=== PATIENT | male | born 1970 | race Caucasian/White ===

== ENCOUNTER 2023-01-18 21:23 | Emergency (ER) | payer MEDICARE, SELFPAY ==
[2023-01-18] VITALS (22 sets, daily range): BP systolic 126–161; BP diastolic 67–109; PULSE 55–119; RESP 5–25; TEMP 37.3; O2SAT 88–100
--- NOTE | 2023-01-18 21:45 | DI.RAD_ITS ---
Exam(s) XR PORTABLE CHEST AP EXAM: XR PORTABLE CHEST AP CLINICAL HISTORY: ascites TECHNIQUE: 2D digital imaging was performed of the chest. One image was obtained. An AP view was ob tained. COMPARISON: No exams were available for comparison FINDINGS: MEDIASTINUM: Normal. HEART: Normal. PULMONARY VASCULATURE: Normal. LUNGS: No focal consolidating infiltrates are present. PLEURAL SPACE: No pleural effusion or pneumothorax. BONE:Within normal limits for the patient's age. OTHER FINDINGS:Normal. IMPRESSION: No focal consolidating infiltrates. Follow-up as clinically appropriate. This may include a repeat chest x-ray or CT scan as symptoms dictate. DATA REPOSITORY: RADIATION DOSE DELIVERED:
--- NOTE | 2023-01-18 21:48 | W.ED.GENAD ---
Discharge Plan Disposition Patient Disposition: Home Discharge Details Chief Complaint: GenMedical Clinical Impression: Ascites Primary Care Provider: Unknown,Unknown ED Provider: Dave Cali Home Meds and New Rx's Prescriptions: No Action midodrine 5 mg tablet 10 mg PO TID hydroxyzine pamoate 50 mg capsule 50 mg PO QID omeprazole 40 mg capsule,delayed release(DR/EC) 40 mg PO DAILY nadolol 20 mg Tablet 20 mg PO HS amiloride 5 mg tablet 10 mg PO DAILY bumetanide 0.5 mg Tablet 0.5 mg PO DAILY niacinamide 100 mg Tablet 150 mg PO DAILY escitalopram oxalate 10 mg Tablet 10 mg PO DAILY escitalopram oxalate 20 mg Tablet 20 mg PO DAILY acamprosate 333 mg tablet,delayed release (DR/EC) 666 mg PO TID lactulose [Constulose] 10 gram/15 mL Solution 15 ml PO TID Xifaxan 550 mg Tablet 550 mg PO BID Xifaxan 550 mg tablet 550 mg PO BID Discharge Instructions Instructions: Ascites (ED) Additional Instructions: Please follow-up with general surgery as scheduled for next week. Please return to the emergency department for any worsening symptoms. Medical Decision Making 52-year-old male history of alcohol abuse, liver cirrhosis, recently moved from [place] where he was receiving frequent paracentesis, seeking treatment for ascites, patient smells of alcohol appears mildly intoxicated however is alert oriented interactive communicative, no acute distress abdomen distended nontense with fluid wave nonperitoneal, afebrile nontoxic. Bedside ultrasound showing moderate ascites however bowel wall very close to abdominal wall, at this time patient is not in any respiratory distress is maintaining his hemodynamics and does not have any signs of peritonitis therefore an urgent/emergent paracentesis is not indicated. We will obtain basic labs PT/INR, will provide light fluids Zofran and famotidine for symptoms of gastritis. Low suspicion for spontaneous bacterial peritonitis or impending respiratory compromise from ascites. Pulse ox 93 to 94% on room air. Will obtain chest x-ray to assess for component of pleural effusion as well. Likely home with close follow-up with general surgery and [facility] human services for recovery resources 22: 50 resting comfortably no acute distress. Saturating 90 to 92% on room air no respiratory distress, patient is a daily smoker approximately 1 pack/day. Patient will be given a referral for evaluation by general surgery for outpatient paracentesis given recurrent chronic ascites. Given home care instructions and return precautions HPI General Date/Time Provider Initiated Documentation: 01/18/23 21:44. HPI Narrative: 52-year-old male history of alcohol abuse, cirrhosis presents after recently moving from [place] seeking treatment for ascites, was receiving paracentesis every couple of weeks has been several weeks since last paracentesis. Related Data Home Medications Medication Instructions Recorded Confirmed acamprosate 333 mg tablet,delayed 666 mg PO TID 01/18/23 01/18/23 release amiloride 5 mg tablet 10 mg PO DAILY 01/18/23 01/18/23 bumetanide 0.5 mg tablet 0.5 mg PO DAILY 01/18/23 01/18/23 escitalopram oxalate 10 mg tablet 10 mg PO DAILY 01/18/23 01/18/23 escitalopram oxalate 20 mg tablet 20 mg PO DAILY 01/18/23 01/18/23 hydroxyzine pamoate 50 mg capsule 50 mg PO QID 01/18/23 01/18/23 lactulose 10 gram/15 mL oral 15 ml PO TID 01/18/23 01/18/23 solution (Constulose) midodrine 5 mg tablet 10 mg PO TID 01/18/23 01/18/23 nadolol 20 mg tablet 20 mg PO HS 01/18/23 01/18/23 niacinamide 100 mg tablet 150 mg PO DAILY 01/18/23 01/18/23 omeprazole 40 mg capsule,delayed 40 mg PO DAILY 01/18/23 01/18/23 release rifaximin 550 mg tablet (Xifaxan) 550 mg PO BID 01/18/23 01/18/23 rifaximin 550 mg tablet (Xifaxan) 550 mg PO BID 01/18/23 01/18/23 Allergies Allergy/AdvReac Type Severity Reaction Status Date / Time No Known Allergies Allergy Unverified 01/18/23 21:43 General Stated Complaint: GenMedical YOLANDA: 3 Review of Systems Narrative: Review of Systems Constitutional: negative Eyes: negative ENT: negative Cardiovascular: negative Respiratory: negative Gastrointestinal: Abdominal distention : negative Musculoskeletal: negative Skin: negative Neurologic: negative Psych: negative PFSH All Active Problems (Updated 01/18/23 @ 22:51 by Dave Cali MD) Ascites (Acute) Social History Smoking/Tobacco Use Status: Current every day Tobacco Type: cigarettes Smoking risk assessment performed?: Yes Alcohol Intake: current Alcohol Intake frequency: 3 or more drinks per day Alcohol type: hard liquor Drug use: Occasionally Substance use type: marijuana Housing: other Do you feel safe at home: No Exam Narrative Exam Narrative: Physical Examination General: alert, awake, cooperative, resting comfortably, no acute distress; EtOH on breath HEENT: normocephalic, atraumatic; PERRL, EOM intact, conjunctiva normal; no nasal discharge; moist mucous membranes, oral and pharyngeal mucosa normal, tolerating secretions Neck: supple, trachea midline; full ROM Chest: normal to inspection Respiratory: normal respiratory effort, speaking in full sentences, clear to auscultation, no wheezing, rales or rhonchi Cardiac: regular rate, regular rhythm, S1S2 intact, no murmurs rubs or gallops GI: abdomen soft, distended abdomen with fluid wave nonperitoneal Skin: no lesions, rashes or trauma appreciated Neuro: AAOx3, normal speech, moving all extremities; appears intoxicated Psych: Appropriate mood and affect Course Vital Signs Vital signs: Vital Signs Temperature 37.3 C 01/18/23 21:25 Pulse 115 H 01/18/23 21:25 Respiratory Rate 24 01/18/23 21:25 Blood Pressure 135/102 H 01/18/23 21:25 Pulse Oximetry 96 01/18/23 21:25 Temperature 37.3 C 01/18/23 21:25 Pulse 115 H 01/18/23 21:25 Respiratory Rate 24 01/18/23 21:25 Respiratory Effort Short of Breath 01/18/23 21:30 Respiratory Depth Normal 01/18/23 21:30 Respiratory Pattern Normal 01/18/23 21:30 Blood Pressure 135/102 H 01/18/23 21:25 Pulse Oximetry 96 01/18/23 21:25 Oxygen Delivery Method Room Air 01/18/23 21:25 Oxygen Flow Rate 0 01/18/23 21:25 Pain Level 7 01/18/23 21:25 PAWSS Have you Been Recently Intoxicated or Drunk Within the Last 30 days?: Yes Have you Ever Experienced Previous Episodes of Alcohol Withdrawal?: No Have you ever Experienced Withdrawal Seizures?: No Have you ever Experienced Delirium Tremens(DT)s?: No Have you ever undergone Alcohol Rehabilitation Treatment (i.e, inpt ot outpatient treatment programs)?: Yes Have you ever Experienced Blackouts?: Yes Have you ever Combined Alcohol with other Downers within the last 90 days?: No Have you ever Combined Alcohol with any other Substance of Abuse during the last 90 days?: Yes Positive Blood Alcohol level on Presentation? [PCS.BAL]: No Evidence of Increased Autonomic Activity (i.e. HR>120, tremor, sweating, agitation, nausea)?: No Result: 5
[2023-01-18 21:57] LABS: Abs Immature Grans 0.01 10^3/uL (0.0-0.06); Absolute Basophil Count 0.08 10^3/uL (0.0-0.2); Absolute Eosinophil Count 0.06 10^3/uL (0.0-0.7); Absolute Lymphocyte Count 1.63 10^3/uL (1.2-3.4); Absolute Monocyte Count 0.64 10^3/uL (0.1-0.8); Absolute Neutrophil Count 4.62 10^3/uL (1.2-6.7); Basophils % 1.1; Eosinophils % 0.9; HCT 42.2 % (40.0-50.0); HGB 13.2 g/dL (13.5-17.5); Immature Grans % 0.1; Lymphocytes % 23.2; MCH 26.9 pg (27.0-33.0); MCHC 31.3 % (32.0-36.0); MCV 86 fL (80-95); MPV 10.1 fL (8.0-11.0); Monocytes % 9.1; Neutrophils % 65.6; Platelet Count 144 10^3/uL (130-400); RBC 4.91 10^6/uL (4.36-5.78); RDW 17.9 % (11.8-14.1); RDW-SD 55.8 fL; WBC 7.04 10^3/uL (4.4-10.8)
[2023-01-18 22:11] LABS: INR 1.3 (0.9-1.1); PTT Activated 26.7 sec (21.5-31.9); Prothrombin Time 13.3 sec (9.3-11.0)
[2023-01-18] MEDS: Normal Saline 500 ML 1000 ML IV (22:11)
[2023-01-18] MEDS: Famotidine 20 MG/2 ML VIAL IVP (22:11)
[2023-01-18] MEDS: Ondansetron 4 MG/2 ML VIAL IVP (22:11)
[2023-01-18 22:12] LABS: ALT 73 U/L (16-63); AST 219 U/L (15-37); Albumin 3.4 g/dL (3.4-5.0); Alkaline Phosphatase 178 U/L (46-116); Anion Gap 13.5 mmol/L (3-11); BUN 14 mg/dL (7-18); Bilirubin, Total 1.5 mg/dL (0.2-1.0); CO2 26.5 mmol/L (21.0-32.0); CREATININE 1.4 mg/dL (0.70-1.30); Calcium 8.8 mg/dL (8.5-10.1); Chloride 99 mmol/L (98-107); Glucose 112 mg/dL (74-106); Potassium 3.8 mmol/L (3.5-5.1); Sodium 139 mmol/L (136-145); Total Protein 9.1 g/dL (6.4-8.2)
[2023-01-18 22:15] LABS: ETHANOL BLOOD 322.8 mg/dL (<10)
--- NOTE | 2023-01-18 22:43 | DI.VRAD_ITS ---
PROCEDURE INFORMATION: Exam: XR Chest Exam date and time: 01/18/2023 10:17 PM Age: 52 years old Clinical indication: Other: Ascites TECHNIQUE: Imaging protocol: Radiologic exam of the chest. Views: 1 view. COMPARISON: No relevant prior studies available. FINDINGS: Lungs: There are mild diffuse interstitial infiltrates present. This may represent cardiogenic versus noncardiogenic edema. An acute inflammatory process and/or infectious process/pneumonia are not excluded. There is no evidence of focal pulmonary consolidation. The pulmonary vasculature is normal. Pleural spaces: There is no evidence of pneumothorax. There are no pleural effusions present. Heart/Mediastinum: The cardiac silhouette is within normal limits. The mediastinum is normal. Bones/joints: The spine, sternum, ribs, and pectoral girdles show no evidence of acute abnormality Other findings: There are no soft tissue masses or calcifications. IMPRESSION: There are mild diffuse interstitial infiltrates present. This may represent cardiogenic versus noncardiogenic edema. An acute inflammatory process and/or infectious process/pneumonia are not excluded. Dictated and Authenticated by: Ronan Coleman MD. Ordering:JAKE Acosta MD
--- NOTE | 2023-01-18 23:02 | NUR.NOTE ---
Referral faxed to [facility] for appt week of 01/21/23 for f/u of ascites and possible paracentesis.Nursing Note:
== END 2023-01-18 23:09 | disposition home or self-care (01) ==
LOC: ER 22:52
PROVIDERS: Emergency Provider Emergency Medicine
DX: R18.8 Other ascites (principal); R06.02 Shortness of breath; M54.9 Dorsalgia, unspecified; F17.210 Nicotine dependence, cigarettes, uncomplicated; F10.10 Alcohol abuse, uncomplicated
CPT/HCPCS: 80053; 96361; 96374; 96375; 99284; 71045; 80320; 85025; 85610; 85730; J2405

== ENCOUNTER 2023-01-25 10:48 | Day surgery (SDC) | payer MEDICARE, SELFPAY ==
--- NOTE | 2023-01-24 21:08 | PDOC.DSDIS_ITS ---
Date of service: 01/25/23 Time of Service: 14:05 Discharge Plan Disposition Patient Disposition: Home Condition: Good Discharge Details Reason For Visit: Paracentesis Attending Provider: Rick Latham Primary Care Provider: None,None Home Meds and New Rx's Prescriptions: Continued midodrine 5 mg tablet 10 mg PO TID hydroxyzine pamoate 50 mg capsule 50 mg PO BID omeprazole 40 mg capsule,delayed release(DR/EC) 40 mg PO DAILY nadolol 20 mg Tablet 20 mg PO HS amiloride 5 mg tablet 10 mg PO DAILY bumetanide 0.5 mg Tablet 0.5 mg PO DAILY niacinamide 100 mg Tablet 150 mg PO DAILY escitalopram oxalate 10 mg Tablet 10 mg PO DAILY escitalopram oxalate 20 mg Tablet 20 mg PO DAILY acamprosate 333 mg tablet,delayed release (DR/EC) 666 mg PO TID lactulose [Constulose] 10 gram/15 mL Solution 15 ml PO TID Xifaxan 550 mg tablet 550 mg PO BID Discharge Instructions Instructions: Ascites (GEN), Paracentesis (GEN) Additional Instructions: Go, it was great meeting you today, and I hope you get some relief with this paracentesis. Next available time I have on the schedule is February 08. We reserved a spot for you on that date. The exact time will be determined by the day surgery team the day before. Again, if you find that you reaccumulate too much before that, please let me know, and we can do it as an emergency. I also placed a consultation for the [facility] hepatology team. They should contact you in the next few days. If you have not heard anything by the end of next week, please let me know. Activity:: Activity as Tolerated Remove Dressings/Wound Care:: 24 hours Diet:: As Tolerated Discharge Orders Discharge Orders: Discharge Order (Routine); Ordered 01/24/23 Ordered By: Rick Latham DS: Diagnosis Discharge Diagnosis (1) Ascites: Status: Acute
--- NOTE | 2023-01-24 21:10 | W.PROCNOTE ---
Date of service: 01/25/23 Time of Service: 14:07 Procedure Note Date of procedure: 01/25/23 Procedure: paracentesis Surgeon/Proceduralist/Physician: Rick Latham Procedure Diagnosis: Tense ascites Procedure Indications: Pulse 52-year-old male with alcoholic cirrhosis and ascites. He requires intermittent paracentesis to alleviate dyspnea and coughing. Procedure Description: I started by performing a limited ultrasound of the abdomen to identify appropriate site for paracentesis. Next, I selected the left lower quadrant as the ideal site for paracentesis. I then prepped and draped the abdomen. Next, using ultrasound guidance, I anesthetized the skin with 1% lidocaine with epinephrine. I used the ultrasound to guide the needle down to the peritoneal level which was also anesthetized. I then made a small incision in the skin with a 11 blade scalpel. Next, I advanced the 5 Ukrainian paracentesis needle and catheter through the incision and into the peritoneal cavity under the direct vision of the ultrasound. I aspirated straw-colored ascites. Next, I gently advance the catheter and remove the needle. I affixed drainage tubing, and began draining the ascites with the assistance of Vacutainer's. As the flow decreased, I assisted the patient to the left lateral decubitus position to improve drainage. I used a hand pump to maximize drainage. Once the ascites stopped flowing, I removed the catheter and used a Band-Aid to dress the wound. In total we drained 4300 mL of ascites.
[2023-01-25 11:32] VITALS: BP 152/99; PULSE 20; RESP 20; TEMP 36.3; O2SAT 98
[2023-01-25 14:00] VITALS: BP 149/95; PULSE 90; RESP 18; TEMP 36.3; O2SAT 96
[2023-01-25] MEDS: ALBUMIN HUMAN 25 GM/100 ML BTL IVPB (14:26)
[2023-01-25] MEDS: Normal Saline Flush 10 ML SYR IVP (14:27)
[2023-01-25] MEDS: Normal Saline Flush 10 ML SYR (14:27)
[2023-01-25 15:00] VITALS: BP 137/82; PULSE 90; RESP 18; TEMP 36.6; O2SAT 95
== END 2023-01-25 15:22 | disposition home or self-care (01) ==
PROVIDERS: Visit Provider Surgery
PROC: 0W9G3ZZ Drainage of Peritoneal Cavity, Percutaneous Approach (ICD-10-PCS; CPT 49082; principal; 2023-01-25 12:30)
DX: K70.31 Alcoholic cirrhosis of liver with ascites (principal)
CPT/HCPCS: 49083

== ENCOUNTER 2023-02-08 06:27 | Day surgery (SDC) | payer MEDICARE, SELFPAY ==
[2023-02-08 06:25] VITALS: BP 137/97; PULSE 98; RESP 18; TEMP 36.4; O2SAT 97
--- NOTE | 2023-02-08 06:34 | OPPNE_ITS ---
Date of service: 02/08/23 Time of Service: 08:06 Procedure Note Date of procedure: 02/08/23 Procedure: Therapeutic paracentesis Surgeon/Proceduralist/Physician: Rick Latham Procedure Diagnosis: Tense ascites Procedure Indications: Go is a 52-year-old male with alcoholic cirrhosis and chronic tense ascites. He requires intermittent paracentesis to help with respiratory discomfort and pain. Procedure Description: I started by performing a limited ultrasound of the abdomen to identify appropriate site for paracentesis. Next, I selected the left lower quadrant as the ideal site for paracentesis. I then prepped and draped the abdomen. Next, using ultrasound guidance, I anesthetized the skin with 1% lidocaine with epinep hrine. I used the ultrasound to guide the needle down to the peritoneal level which was also anesthetized. I then made a small incision in the skin with a 11 blade scalpel. Next, I advanced the 5 Macedonian paracentesis needle and catheter through the incision and into the peritoneal cavity under the direct vision of the ultrasound. I aspirated straw-colored ascites. Next, I gently advance the catheter and removed the needle. I affixed drainage tubing, and began draining the ascites with the assistance of Vacutainer's. I drained 6400 ml of ascites. As the flow decreased, I assisted the patient to the left lateral decubitus position to improve drainage. A large Band-Aid was used to dress the wound.
--- NOTE | 2023-02-08 06:34 | W.PM.DSUDISC ---
Date of service: 02/08/23 Time of Service: 07:56 Discharge Plan Disposition Patient Disposition: Home Condition: Good Discharge Details Reason For Visit: Therapeutic paracentesis Attending Provider: Rick Latham Home Meds and New Rx's Prescriptions: Continued midodrine 5 mg tablet 10 mg PO TID hydroxyzine pamoate 50 mg capsule 50 mg PO BID omeprazole 40 mg capsule,delayed release(DR/EC) 40 mg PO DAILY nadolol 20 mg Tablet 20 mg PO HS amiloride 5 mg tablet 10 mg PO DAILY bumetanide 0.5 mg Tablet 0.5 mg PO DAILY niacinamide 100 mg Tablet 150 mg PO DAILY escitalopram oxalate 10 mg Tablet 10 mg PO DAILY escitalopram oxalate 20 mg Tablet 20 mg PO DAILY acamprosate 333 mg tablet,delayed release (DR/EC) 666 mg PO TID lactulose [Constulose] 10 gram/15 mL Solution 15 ml PO TID Xifaxan 550 mg tablet 550 mg PO BID Discharge Instructions Additional Instructions: Go, it was great seeing you again today. I hope the paracentesis helps you feel a little better. Just as a reminder, we drained 6400 mL today. We will give you a dose of albumin before you leave. I would say at this rate, scheduling another paracentesis for about 2 weeks is probably the best option. If you need anything else in the meantime, please do not hesitate to call. Activity:: Activity as Tolerated Diet:: As Tolerated Discharge Orders Discharge Orders: Discharge Order (Routine); Ordered 02/08/23 Ordered By: Rick Latham DS: Diagnosis Discharge Diagnosis (1) Ascites: Status: Acute
[2023-02-08 08:00] VITALS: BP 130/78; PULSE 87; RESP 16; TEMP 36.7; O2SAT 95
[2023-02-08] MEDS: ALBUMIN HUMAN 25 GM/100 ML BTL IVPB (08:20)
--- NOTE | 2023-02-08 10:52 | CMPROGNOTE_ITS ---
Date of service: 02/08/23 Time of Service: 09:30 Care Management Progress Note Progress Note Text Progress Note Text: CM contacted by Day Surgery staff. Patient had made concerning comments suggesting he may have some suicidal ideation. CM contacted [facility] and Go was screened by crisis screener Maru Lara. He was discharged home on a safety plan and will follow up with [facility] next week.
--- NOTE | 2023-02-08 18:58 | PDOC.MHCN_ITS ---
Date of service: 02/08/23 Time of Service: 18:58 PHQ-9 Over the last 2 weeks, how often have you been bothered by any of the following problems? 1. Little interest or pleasure in doing things: several days 2. Feeling down, depressed, or hopeless: several days 3. Trouble falling or staying asleep, or sleeping too much: not at all 4. Feeling tired or having little energy: nearly every day 5. Poor appetite or overeating: more than half the days 6. Feeling bad about yourself - or that you are a failure or have let yourself and your family down: nearly every day 7. Trouble concentrating on things, such as reading the newspaper or watching television: several days 8. Moving or speaking so slowly that other people could have noticed? - Or the opposite - being so fidgety or restless that you have been moving around a lot more than usual: several days 9. Thoughts that you would be better off or of hurting yourself in some way: several days Total score: 13 If you checked off any problems, how difficult have these problems made it for you to do your work, take care of things at home, or get along with other people?: not difficult at all Source: Developed by Drs. Ronald Mitchell, Marine Ramos, John Lainez and colleagues, with an educational franklyn from [facility]. Suicide Severity Rate CSSRS Have you wished you were or wished you could go to sleep and not wake up?: Yes Have you actually had any thoughts of killing yourself?: No CSSRS3 Have you ever done anything, started to do anything or prepared to do anything to end your life?: No Screening Score Total Score: 2 Screening: Positive Mental Health Emergency Note Release HS release signed:: Yes Reason for Visit [facility] [employer] Manager, Felisa called at the request of Day Surgery for an assessment of the client after he made some suicidal comments coming out of his day surgery. This assessment was completed face to face with the client in his recovery room. In the last 2 weeks has the pt presented for ES prior to today?: No Client Information Client is: New Well Housed: Yes Non Suicidal Self Injury Current: No History: No Safety Risk/Harm to Self or Others Current Ideation to Harm Self or Others: No Risk: Does risk to harm exist?: No Risk: Low Risk Duty to warn indicated: No Asssessment/Mental Status Appearance: Disheveled Attitude: Cooperative and Friendly Behavior: Unremarkable Speech: Normal Affect: Normal Mood: Depressed Thought process: Goal directed Hallucinations: No Delusions: No Attention: Unremarkable Perception: Not impaired Orientation: Fully orientated Memory: Intact Insight: Good Judgement: Good Neurovegetative Symptoms Sleep: No change Appetitie: Decrease Interests: No change Energy: Decrease Libido: Not applicable Substance Use: Do you use nicotine?: Yes Have you used substances in the last 7 days?: No Additional Issues: Assaultive/Threatening Behavior: No Medical Concerns: No Client engaged in active self harm w/weapon: No Threatening to run away: No Child reported abuse/neglect: No Voluntarily presenting for services: Yes Domestic violence is a concern: No Extreme Psychosis or extreme behavior is present: No Impression Client is a 52 year old, single, male who lives independently in [facility]. 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 The client reported that he has thoughts all the time if he didn't wake up he would be okay with it but has no intention of acting on anything and denied any plan. He stated I've just reached the point with my health that people would just let me go to sleep and end it. He said he has felt like this for the past 2 months. He reported that while living in [place] he had 2 therapists, 4 doctors and now he has no one. He moved in with his mother to help her while she was ill and then she got better and he didn't. He decided to move to [place] to be with a couple of friends he had. He described his mood in the last 2 weeks as shaky. He wants to get a plan to help himself as he feels lost. He makes fair eye contact and is cooperative with the assessment. He stated he could never do that when speaking about suicide but also admits that he wouldn't care if he didn't wake up the next day. He self reported his risk a 0/10. The client's protective factors include his partner, friend, and the surgeon that did his surgery today. It is observed today by this clinician that the client has a great sense of humor and he reports he enjoys spending money. The client reported he is consistent with taking his medications and believes they are working. He is open to an in house referral for case management and therapy. Resources Reosurces reviewed and given:: 98 and [facility] Plan/Disposition Recommended Disposition: PCP/Office visit, [facility] Services (Referrals will be made) [facility] Services: Therapy and Other and Therapy. Plan: The client was amendable to referrals for therapy and case management to assist with treatment and to help him get set up with [place] Medicaid and a new PCP. The client agreed to do intake and a safety plan. He was advised of [facility] ES as well as [phone]. Person reported agreement to plan: Yes Reports/communication Outcome discussed with: Other (Day surgery staff and Care Management)
== END 2023-02-08 10:36 | disposition home or self-care (01) ==
PROVIDERS: Visit Provider Surgery
PROC: 0W9G3ZZ Drainage of Peritoneal Cavity, Percutaneous Approach (ICD-10-PCS; CPT 49082; principal; 2023-02-08 07:30)
DX: R18.8 Other ascites (principal)
CPT/HCPCS: 49083; 96365

== ENCOUNTER 2023-02-25 13:15 | Observation (INO) | payer MEDICARE, SELFPAY ==
--- NOTE | 2023-02-24 12:03 | W.PM.DSUDISC ---
Date of service: 02/25/23 Time of Service: 12:00 Discharge Plan Disposition Patient Disposition: Home Condition: Good Discharge Details Reason For Visit: Therapeutic paracentesis Attending Provider: Rick Latham Home Meds and New Rx's Prescriptions: Continued midodrine 5 mg tablet 10 mg PO TID hydroxyzine pamoate 50 mg capsule 50 mg PO BID omeprazole 40 mg capsule,delayed release(DR/EC) 40 mg PO DAILY nadolol 20 mg Tablet 20 mg PO HS amiloride 5 mg tablet 10 mg PO DAILY bumetanide 0.5 mg Tablet 0.5 mg PO DAILY niacinamide 100 mg Tablet 150 mg PO DAILY escitalopram oxalate 10 mg Tablet 10 mg PO DAILY escitalopram oxalate 20 mg Tablet 20 mg PO DAILY acamprosate 333 mg tablet,delayed release (DR/EC) 666 mg PO TID lactulose [Constulose] 10 gram/15 mL Solution 15 ml PO TID Xifaxan 550 mg tablet 550 mg PO BID Discharge Instructions Activity:: Activity as Tolerated Diet:: As Tolerated Discharge Orders Discharge Orders: Discharge Order (Routine); Ordered 02/24/23 Ordered By: Rick Latham DS: Diagnosis Discharge Diagnosis (1) Ascites: Status: Inactive Asessment and Plan: Paracentesis for 7200 mL of ascites today
--- NOTE | 2023-02-24 12:04 | W.PROCNOTE ---
Date of service: 02/25/23 Time of Service: 12:02 Procedure Note Date of procedure: 02/25/23 Procedure: Therapeutic paracentesis Surgeon/Proceduralist/Physician: Rick Latham Procedure Diagnosis: Tense ascites Procedure Indications: oG is a 52-year-old male with alcoholic cirrhosis and chronic ascites. He has had increasing abdominal pain, shortness of breath. He is here for therapeutic paracentesis. Procedure Description: I started by performing a limited ultrasound of the abdomen to identify appropriate site for paracentesis. Next, I selected the left lower quadrant as the ideal site for paracentesis. I then prepped and draped the abdomen. Next, using ultrasound guidance, I anesthetized the skin with 1% lidocaine with epinephrine. I used the ultrasound to guide the needle down to the peritoneal level which was also anesthetized. I then made a small incision in the skin with a 11 blade scalpel. Next, I advanced the 5 Spanish paracentesis needle and catheter through the incision and into the peritoneal cavity under the direct vision of the ultrasound. I aspirated straw-colored ascites. Next, I gently advance the catheter and remove the needle. I affixed drainage tubing, and began draining the ascites with the assistance of Vacutainers. As the flow decreased, I assisted the patient to the left lateral decubitus position and switched to hand pumping to improve drainage. Once the ascites stopped flowing, I removed the catheter and used a Band-Aid to dress the wound. In total I drained 7200 mL of ascites.
[2023-02-25 10:14] VITALS: BP 114/77; PULSE 76; RESP 16; TEMP 36.3; O2SAT 98
[2023-02-25] MEDS: Normal Saline Flush 10 ML SYR IVP ×2 (10:30→12:11)
[2023-02-25 11:55] VITALS: BP 102/59; PULSE 70; RESP 16; TEMP 36.4; O2SAT 96
[2023-02-25] MEDS: ALBUMIN HUMAN 25 GM/100 ML BTL IVPB (12:09)
[2023-02-25 12:32] LABS: HCT 38.7 % (40.0-50.0); HGB 12.2 g/dL (13.5-17.5); MCH 28.4 pg (27.0-33.0); MCHC 31.5 % (32.0-36.0); MCV 90 fL (80-95); MPV 10.3 fL (8.0-11.0); Platelet Count 102 10^3/uL (130-400); RDW 19.3 % (11.8-14.1); RDW-SD 62.8 fL; WBC 5.74 10^3/uL (4.4-10.8)
[2023-02-25 12:53] LABS: ALT 37 U/L (16-63); AST 126 U/L (15-37); Albumin 2.6 g/dL (3.4-5.0); Alkaline Phosphatase 161 U/L (46-116); Anion Gap 11.2 mmol/L (3-11); BUN 15 mg/dL (7-18); Bilirubin, Total 1.3 mg/dL (0.2-1.0); CO2 27.8 mmol/L (21.0-32.0); CREATININE 1.4 mg/dL (0.70-1.30); Calcium 8.4 mg/dL (8.5-10.1); Chloride 102 mmol/L (98-107); Glucose 113 mg/dL (74-106); Sodium 141 mmol/L (136-145); Total Protein 7.2 g/dL (6.4-8.2)
[2023-02-25 12:55] LABS: Ammonia 46 umol/L (11-32)
[2023-02-25 13:02] LABS: Potassium 2.8 mmol/L (3.5-5.1)
--- NOTE | 2023-02-25 13:20 | HPE_ITS ---
Date of service: 02/25/23 Time of Service: 13:20 Assessment and Plan Assessment and plan (1) Hypokalemia: Status: Acute Assessment and plan: Follow-up on his magnesium, and replete his potassium by mouth. We will repeat a basic metabolic panel tomorrow. I will consult the hospitalist for assistance with management of his liver disease History of Present Illness History of Present Illness Chief Complaint: lethargy Narrative: Go is 52 years old, and he is known to me from cirrhosis with tense ascites requiring therapeutic paracentesis. Over the past week and a half, he has developed increasing abdominal distention, pain, and some mild exertional dyspnea that indicated there was an appropriate time for his next paracentesis. On arrival today, he complained of increased lethargy, foggy headedness, and just not feeling himself. He tells me that he tried to get an outpatient primary care physician, but he has not been able to secure 1. Therefore, he continues to take the medications that were previously prescribed from his physician in [place], prior to his relocation to the [facility]. Over the past few days, he has had lack of appetite, and has missed several meals. He is quite distracted and worried about anticipated loss of housing in the weeks to come. Review of Systems Constitutional Constitutional: Denies body ache(s), Reports daytime sleepiness, Reports fatigue, Denies fever(s), Reports lethargy, Reports poor appetite and Reports weakness Eyes Eyes: Reports system reviewed and no additional complaints, except as documented ENT Ears, Nose, Mouth, and Throat: Reports system reviewed and no additional complaints, except as documented Cardiovascular Cardiovascular: Denies chest pain, Denies dyspnea and Reports dyspnea on exertion Respiratory Respiratory: Denies chest congestion, Denies cough, Denies dyspnea and Reports dyspnea on exertion Gastrointestinal Gastrointestinal: Reports abdominal pain, Reports bloating, Denies nausea and Denies vomiting Genitourinary Genitourinary: Reports system reviewed and no additional complaints, except as documented Musculoskeletal Musculoskeletal: Denies myalgias and Reports muscle weakness Neurologic Neurologic: Reports behavioral changes and Reports weakness Psychiatric Psychiatric: Reports behavioral changes, Reports change in appetite, Reports hopelessness, Reports anhedonia and Denies suicidal ideation Endocrine Endocrine: Reports fatigue Hematologic/Lymphatic Hematologic/Lymphatic: Denies easy bleeding and Denies easy bruising PFSH All Active Problems (Updated 02/25/23 @ 13:51 by Rick Latham MD) Hypokalemia (Acute) Medical History Anxiety and depression Chronic GERD Cirrhosis ETOH abuse HTN (hypertension) Itching Surgical History History of esophagogastroduodenoscopy (EGD) S/P abdominal paracentesis (~01/2023) Social History Smoking/Tobacco Use Status: Current every day Tobacco Type: cigarettes Smoking risk assessment performed?: Yes Alcohol Intake: current Alcohol Intake frequency: a few times a month Alcohol type: wine and hard liquor Drug use: Current Sobriety Substance use type: marijuana Housing: other Do you feel safe at home: No Do you feel safe in your relationship?: Yes Meds Allergies and Home Medications Allergies Allergy/AdvReac Type Severity Reaction Status Date / Time No Known Allergies Allergy Unverified 01/18/23 21:43 Home Medications Medication Instructions Recorded Confirmed Type acamprosate 333 mg tablet,delayed 666 mg PO TID 01/18/23 02/25/23 History release amiloride 5 mg tablet 10 mg PO DAILY 01/18/23 02/25/23 History bumetanide 0.5 mg tablet 0.5 mg PO DAILY 01/18/23 02/25/23 History escitalopram oxalate 10 mg tablet 10 mg PO DAILY 01/18/23 02/25/23 History escitalopram oxalate 20 mg tablet 20 mg PO DAILY 01/18/23 02/25/23 History hydroxyzine pamoate 50 mg capsule 50 mg PO BID 01/18/23 02/25/23 History lactulose 10 gram/15 mL oral 15 ml PO TID 01/18/23 02/25/23 History solution (Constulose) midodrine 5 mg tablet 10 mg PO TID 01/18/23 02/25/23 History nadolol 20 mg tablet 20 mg PO HS 01/18/23 02/25/23 History niacinamide 100 mg tablet 150 mg PO DAILY 01/18/23 02/25/23 History omeprazole 40 mg capsule,delayed 40 mg PO DAILY 01/18/23 02/25/23 History release rifaximin 550 mg tablet (Xifaxan) 550 mg PO BID 01/18/23 02/25/23 History Exam Const General: cooperative Nutritional Appearance: malnourished Orientation: alert, awake and oriented x3 HENMT Head: normal to inspection Eyes General: appearance normal, both eyes and all related structures Neck Neck: normal visual inspection and full ROM Resp Auscultation: clear to auscultation bilaterally Cardio Jugular venous pressure: no JVD Rate: regular rate Rhythm: regular rhythm Heart Sounds: S1 normal and S2 normal GI Palpation: firm and no hernias Percussion: dullness to percussion and fluid wave Extrem Right lower extremity: no edema Left lower extremity: no edema Psych Appearance: grossly normal Thought Process: normal Thought Content: normal Insight: insight good Results Labs 02/25/23 12:22 02/25/23 12:22 Labs: Laboratory Results - last 24 hr 02/25/23 02/25/23 02/25/23 12:22 12:22 12:22 WBC 5.74 RBC 4.30 L Hgb 12.2 L Hct 38.7 L MCV 90 MCH 28.4 MCHC 31.5 L RDW 19.3 H Plt Count 102 L MPV 10.3 Sodium 141 Potassium 2.8 L* Chloride 102 Carbon Dioxide 27.8 Anion Gap 11.2 H BUN 15 Creatinine 1.4 H Est GFR (CKD-EPI 2020) 60.10 Glucose 113 H Calcium 8.4 L Total Bilirubin 1.3 H AST 126 H ALT 37 Alkaline Phosphatase 161 H Ammonia 46 H Total Protein 7.2 Albumin 2.6 L Last Vital Signs Temp 97.5 F L 02/25/23 11:55 Pulse 70 02/25/23 11:55 Resp 16 02/25/23 11:55 BP 102/59 L 02/25/23 11:55 Pulse Ox 96 02/25/23 11:55 Time Spent Time spent with Patient: 40-54 minutes Time was spent: preparing to see the patient(eg.review tests), referring, communicating with other health acute care clinical nurse specialist, counseling the patient and care coordination
[2023-02-25 13:38] VITALS: BP 103/57; PULSE 77; RESP 16; TEMP 36.6; O2SAT 92
[2023-02-25 14:40] VITALS: BP 107/69; PULSE 82; RESP 16; TEMP 36.2; O2SAT 96
[2023-02-25] MEDS: Lactulose 20 GM/30 ML CUP 15 GM PO ×2 (15:26→19:57)
[2023-02-25] MEDS: Potassium Chloride 20 MEQ TABCR 40 MEQ PO (15:27)
[2023-02-25] MEDS: Heparin 5,000 UNITS/ML VIAL 5000 UNITS SC (17:12)
[2023-02-25] MEDS: MORPHine 2 MG/ML SYR IVP (19:55)
[2023-02-25] MEDS: Rifaximin 550 MG TAB PO (19:56)
[2023-02-25] MEDS: hydrOXYzine PAMOATE 25 MG CAP 50 MG PO (19:56)
[2023-02-25] MEDS: Midodrine 2.5 MG TAB 10 MG PO ×2 (19:56→20:00)
[2023-02-25] MEDS: Acamprosate 333 MG TABCR 666 MG PO ×2 (19:57→20:00)
--- NOTE | 2023-02-25 21:32 | W.MEDCONSULT ---
Date of service: 02/25/23 Time of Service: 21:32 Assessment and Plan Assessment and plan (1) Hypokalemia: Status: Acute Assessment and plan: I would use both parenteral and oral potassium replacement. His K+ is 2.8 and he will likely need 100 to 120 meq KCl to get his K over 3.5. He has been on amiloride which is a potassium sparind diuretic and thereortically should help w/ conserving potassium while he is on a loop diuretic, however, I think that he would do better going on spironolactone which he says he had not been tried on in the past. I have written for both further oral and iv doses of potassium replacement tonight and have ordered follow up magnesium levels to be checked. I have also put him on telemetry to monitor him overnight while he get parenteral potassium replacements. (2) HTN (hypertension): Assessment and plan: BP has not been elevated while heree. He has been on nadolol for his varices adn this along w/ his diuretics seems to control his BP. He is also on midodrine for his portal hypertension and varices and despite use of this alpha agonist, he has not had elevated blood pressures. I would just continue his current meds except for changing his amiloride to spironolactone. He can start at 100 mg daily and combine this w/ his bumex which I think could be increased to 1 mg daily and if he is still not getting adequate diuresis, then titrate to 2 mg daily. Zaroxolyn could be added to his regimen at 2.5 mg every other day to daily as needed to maintain adequate diuresis. Goal is IBW 75 kg (he currently is at 83 kg) (3) ETOH abuse: Status: Chronic Assessment and plan: patient reports continued occasional intake of alcohol. He needs to understand that any alcohol intake is not good in the setting of cirrhosis. (4) Cirrhosis: Status: Acute Assessment and plan: continue current meds including Rifaximin, lactulose, diuretics and nadolol. (5) Chronic GERD: Assessment and plan: patient reports that his last EGD was by his GI doctor in [place] about 6 months ago. He says that he has varices but they were banded during an earlier EGD and they have been stable. He has not had TIPPS procedure. (6) Anxiety and depression: Assessment and plan: Current dose of Escitalopram 30 mg daily exceeds the recommended dosing in cirrhosis (10 mg daily). I would encourage him to decrease his dose to at least 20 mg daily and see if his depression and anxiety is unchanged. History of Present Illness History of Present Illness Chief Complaint: ascites, hypokalemia Narrative: 52 yr old male w/ alcohol induced cirrhosis, who is [place] but was recently living in [place], [place] until 3 months ago. He went to [place] to care for elderly mother until she required placement in a retirement. He has been followed by hepatology at [facility] ([facility]) under care of Dr. Beto Nath. Patient states that he has not found a primary care provider and has been getting paracentesis through the ED by the surgeon's every couple weeks. he has hx of esophageal varices which have been banded. His last EGD was done about 4 months ago just before he moved to [place]. He admits that he continues to take occasional drinks of alcohol but tries to avoid drinking regularly. He denies hx of alcohol withdrawal or delirium tremens. He denies any hx of DM or chronic heart or pulmonary disease although he does smoke about a half a pack of cigarettes per day and uses marijiuana but denies recrecational use of illicit drugs. He has had recent abdominal distension, pain due to his ascites. He had paracentesis today and was found to have severe hypokalemia, K+ 2.[address] Rick Latham asked me about management of his low potassium level. I recommended admission on observation status while we replete his potassium. I think he will need both parenteral and oral replacement to get his K to 3.5 or higher. he is already on a potassium spareing diuretic amiloride but despite this his potassium remains low. He is not having diarrhea although his stools are loose, despite being on lactulose. His portal hypertension is controlled w/ nadolol and midodrine. He has not had a TIPPS procedure but has been banded during one of his earlier EGD's done at [place]. Prevention of progression of his cirrhosis will depend upon him maintaining abstinence. He is looking for a primary care provider. I told him that case management can assist him with this. As for hepatology, I told him that either [facility] or [facility] has specialists who could meet his needs. Review of Systems All systems reviewed & are unremarkable except as noted in HPI and below Gastrointestinal Gastrointestinal: Reports abdominal pain (improved since his paracentesis), Denies melena, Denies hematochezia and Reports loose stools PFSH All Active Problems (Updated 02/26/23 @ 12:01 by Ligia Fowler MD) Ascites due to alcoholic cirrhosis (Acute) ETOH abuse (Chronic) Cirrhosis (Acute) Advanced care planning/counseling discussion (Acute) Palliative care encounter (Acute) Hypokalemia (Acute) Medical History (Updated 02/26/23 @ 12:01 by Ligia Fowler MD) Anxiety and depression Chronic GERD HTN (hypertension) Itching Surgical History (Updated 02/26/23 @ 08:45 by Tana Gillespie) History of esophagogastroduodenoscopy (EGD) S/P abdominal paracentesis (~02/2023) Social History Smoking/Tobacco Use Status: Current every day Tobacco Type: cigarettes Smoking risk assessment performed?: Yes Alcohol Intake: current Alcohol Intake frequency: a few times a month Alcohol type: wine and hard liquor Drug use: Current Sobriety Substance use type: marijuana Housing: other Do you feel safe at home: No Do you feel safe in your relationship?: Yes Exam Narrative Exam Narrative: Middle age male who is alert, oriented x 3. HEENT: no icterus, skin does not appear jaundiced, oropharynx no exudates, no fasciculations of his tongue Neck: suppler, no JVD, no adenopathy, normal carotid pulse Lungs: clear to auscultation Heart: normal rate and rhythm, no murmur or rub or gallops, PMI apical, not displaced Abdomen: he has hepatosplenomegaly but no tenderness, abdomen is not distended but he just had paracentesis, bandage over left side, no leakage, normal bowel sounds, no caput medusae or striae Legs: no edema or cyanosis, normal pedal pulses Neuro: normal congnition, no CN deficits, normal ROM and strength, normal sensation to light touch over face, trunk and extremities, slight tremor in left hand when held outstretched, no asterixis Results Last Vital Signs Temp 36.2 C L 02/25/23 14:40 Pulse 82 02/25/23 14:40 Resp 16 02/25/23 14:40 BP 107/69 02/25/23 14:40 Pulse Ox 96 02/25/23 14:40 Labs 02/25/23 12:22 02/26/23 06:50 Labs: Laboratory Results - last 24 hr 02/25/23 02/25/23 02/25/23 12:22 12:22 12:22 WBC 5.74 RBC 4.30 L Hgb 12.2 L Hct 38.7 L MCV 90 MCH 28.4 MCHC 31.5 L RDW 19.3 H Plt Count 102 L MPV 10.3 Sodium 141 Potassium 2.8 L* Chloride 102 Carbon Dioxide 27.8 Anion Gap 11.2 H BUN 15 Creatinine 1.4 H Est GFR (CKD-EPI 2020) 60.10 Glucose 113 H Calcium 8.4 L Total Bilirubin 1.3 H AST 126 H ALT 37 Alkaline Phosphatase 161 H Ammonia 46 H Total Protein 7.2 Albumin 2.6 L
[2023-02-25] MEDS: Potassium Chloride 10 MEQ CAPCR 40 MEQ PO (21:33)
[2023-02-25] MEDS: POTASSIUM CHLORIDE 10 MEQ/100 ML BAG 100 MEQ IVPB (21:45)
[2023-02-25] MEDS: Nadolol 40 MG TAB 20 MG PO (22:00)
[2023-02-25 22:49] LABS: Lab Add On Test DONE
[2023-02-25 22:57] LABS: Magnesium 1.6 mg/dL (1.8-2.4)
[2023-02-25 23:00] VITALS: PULSE 74
[2023-02-26] MEDS: Normal Saline Flush 10 ML SYR IVP (02:54)
[2023-02-26] MEDS: POTASSIUM CHLORIDE 10 MEQ/100 ML BAG 100 MEQ IVPB ×2 (03:06→06:47)
[2023-02-26] MEDS: Heparin 5,000 UNITS/ML VIAL 5000 UNITS SC (04:23)
[2023-02-26 07:00] VITALS: PULSE 74
[2023-02-26 07:28] VITALS: BP 105/69; PULSE 66; RESP 16; TEMP 35.4; O2SAT 96
[2023-02-26 08:10] LABS: Anion Gap 9.3 mmol/L (3-11); BUN 12 mg/dL (7-18); CO2 27.7 mmol/L (21.0-32.0); CREATININE 1.3 mg/dL (0.70-1.30); Calcium 8.3 mg/dL (8.5-10.1); Chloride 103 mmol/L (98-107); Estimated GFR 65.69 (mL/min/1.73m2); Glucose 86 mg/dL (74-106); Magnesium 1.4 mg/dL (1.8-2.4); Potassium 3.3 mmol/L (3.5-5.1); Sodium 140 mmol/L (136-145)
[2023-02-26] MEDS: Magnesium Oxide 400 MG TAB PO (08:30)
[2023-02-26] MEDS: hydrOXYzine PAMOATE 25 MG CAP 50 MG PO (08:30)
[2023-02-26] MEDS: Omeprazole 20 MG CAPCR 40 MG PO (08:30)
[2023-02-26] MEDS: Bumetanide 1 MG TAB 0.5 MG PO (08:31)
[2023-02-26] MEDS: Escitalopram 20 MG TAB PO (08:31)
[2023-02-26] MEDS: Rifaximin 550 MG TAB PO (08:32)
[2023-02-26] MEDS: aMILoride HCL 5 MG TAB 10 MG PO (08:33)
[2023-02-26] MEDS: Midodrine 2.5 MG TAB 10 MG PO ×2 (08:34→13:03)
[2023-02-26] MEDS: Acamprosate 333 MG TABCR 666 MG PO ×2 (08:34→13:02)
--- NOTE | 2023-02-26 10:49 | PDOC.CMIN ---
Date of service: 02/26/23 Time of Service: 10:49 Care Management Initial Assmt Initial Assessment REASON FOR HOSPITALIZATION:: Therapeutic paracentesis PREVIOUS FUNCTIONAL STATUS/SOCIAL/FAMILY SUPPORTS:: Go lives in [place], and reports that he is currently camping. He is originally from [place], but moved to [place] to take care of his elderly mother. She recently was placed in a prison, so he returned to [place], about three months ago. He is independent at baseline with ADLs. CURRENT FUNCTIONAL STATUS:: Go was sitting up in bed when CM met with him. He was pleasant and engaged well in conversation. He reported that he has a lot of anxiety about his housing situation and insurance needs. He stated that he is currently camping, and is worried about where he will be living in the winter. He also discussed how he has not been connected with a PCP or specialists in the area. He reported that in [place] he was very well connected, and he is starting over here in [place]. CM explained that he will be provided a follow up appointment with the provider logistics loss prevention manager the day he was admitted, which is Kushal Salgado at [facility]. He will at that time be able to fill out paperwork to establish care. requested a referral for [facility] [employer], which CM will send. He acknowledged that it would be far for him to drive, but he doesn't mind the drive. CM will also send a referral to [employer] for insurance support, to change his [place] from [place] [employer]. [employer] can also support him with housing resources, including applications to subsidized housing. Go stated that he will likely be discharged today, which he is comfortable with. CM will continue to follow. ADVANCE DIRECTIVES:: not on file; Palliative care consulted to discuss goals of care. Has patient been provided with info about the portal/API?: Yes Did the patient sign up for the portal?: No CODE STATUS:: Full Code INSURANCE COVERAGE / FINANCIAL ISSUES:: [employer] MCR replacement CURRENT HOME/COMMUNITY SERVICES/EQUIPMENT:: None. PRIMARY CARE PHYSICIAN:: No current PCP; CM will coordinate discharge follow up with logistics loss prevention manager provider, Kushal Salgado at [facility]. POTENTIAL DISCHARGE NEEDS:: Follow up appointments. PATIENT/FAMILY EDUCATION NEEDS:: Review discharge instructions and limitations, discussion of self care needs including ask me three. ANTICIPATED BARRIERS TO DISCHARGE:: None identified. TRANSPORTATION:: Via private vehicle by friends PLAN:: Anticipate Go will return home when medically cleared. He will be driven home via private vehicle by his friend. He will follow up with his PCP and discharge plan of care. CM will continue to follow. PFSH All Active Problems Medication monitoring encounter (Acute) Ascites due to alcoholic cirrhosis (Acute) ETOH abuse (Chronic) Cirrhosis (Acute) Advanced care planning/counseling discussion (Acute) Palliative care encounter (Acute) Hypokalemia (Acute) Medical History Anxiety and depression Chronic GERD HTN (hypertension) Itching Surgical History History of esophagogastroduodenoscopy (EGD) S/P abdominal paracentesis (~02/2023) Social History Smoking/Tobacco Use Status: Current every day Tobacco Type: cigarettes Smoking risk assessment performed?: Yes Alcohol Intake: current Alcohol Intake frequency: a few times a month Alcohol type: wine and hard liquor Drug use: Current Sobriety Substance use type: marijuana Housing: other Do you feel safe at home: No Do you feel safe in your relationship?: Yes
[2023-02-26] MEDS: diphenhydrAMINE 25 MG CAP PO (10:53)
--- NOTE | 2023-02-26 11:42 | PCNE_ITS ---
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 Mr. Chavez has a long history of alcohol abuse. He also has a very strong fam H x of liver disease(dad and grandmother). Dx with liver disease at age 48 yrs when he presented with ascites and pruritus. He moved from [place] to [facility] in December 2022. Prior to moving to [place], he was receiving intermittent therapeutic paracentesis to help with discomfort from his ascites. Yesterday he saw surgeon Rick Latham for his third abdominal paracentesis since December 2022. He was noted to have severe hypokalemia and was admitted to inpatient status after the paracentesis for treatment of this. I arrived for consult with Go just as his friends were coming to pick him up. We had abbreviated 45-minute encounter today. He very much would like to meet with me again to further discussion on symptom management and goals of care. End-stage liver disease/ascites: -He had been followed by multiple pressure riveter operator in [place] until moving to [place]; -described that initial MELD score was 14 or 15 and improved to 11 once he was treated. (Calculated to be 14 today) -he reports he had therapeutic abdominal paracenteses for over 3 years every 2 to 4 weeks (over 30 times). -Taking lactulose 30 cc 3 times daily, resulting in diarrheal stools 8-10 times a day and frequent fecal incontinence. This persists even on 15 cc 3 times daily. He cannot recall having work-up for diarrhea (stool cultures etc.) -On nadolol for known esophageal varices, has had variceal banding in the past. -Has not had TIPS procedure. His multiple pressure riveter operator advised against it. He does have intermittent encephalopathy. Difficult to get history have how often he has been encephalopathic. Has not had frequent hospitalizations in [place] prior to moving here. -He is on acamprosate for EtOH cravings. -Upset that everyone looks at his hx drinking and ignores family history. -Falls: Frequent falls, balance is poor. My knees are all knocked up from falls . Has had had no injuries during falls as well. Alcohol use disorder: -Was going to prior to moving to [place]. Was going to AA 7 days a week for the last 2 years. Has not resumed going since moving to [place]. Recently located to meetings nearby where he is living -Had first glass of wine in 8 months last week. Mental health: Patient referred to [facility] crisis team 02/08/2023 after expressing some self-harm sounding talk. Had evaluation by dope maintenance worker. They felt that he was safe at that time. Stressors from moving, illness. He was referred to an S for counseling (has not been contacted by anyone yet). Safety plan was made as well. Currently on escitalopram 30 mg daily. Medicine consult yesterday recommended decreasing to escitalopram 20 mg daily. Care Team: Primary Care physician: Unable to find PCP yet.Case management has referred him to [facility] in [place] as they are taking unassigned patients on the day he was admitted. General surgery: Rick Latham Social HX: Currently living in [place], staying in a tent on friends property while looking for housing. This is comfortable for now but not adequa te for winter. He has a car and a phone that are working. He lived in [facility] up until 5 years ago. His mom was living nearby. She had a fall and needed additional help. Both of them moved to [place] to be closer to his sister. Recently his mom moved into assisted living and he is no longer able to live with her. This past December he moved back to [place] to be closer to friends. No close family in [place]. BUT HE DOES HAVE CLOSE FRIENDS. NEVER , NO PARTNER. NO children. Gets along with his sister (who still lives in [facility]) and Mother.. 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 Has SSI disability, has medicare and has [place] medicaid. Additional services: None currently Impression of currents health status:Has liver disease from Family hx. not doing well, feels like he will never be better again. What bothers you the most: Incessant diarrhea from taking the lactulose syrup; Varies, 8-10 episodes a day. See HPI What worries you the most:That he will be like this for the rest of his life. Goals: -Renting a room to live in; finding housing -Getting a job (although he thinks he is probably unable to work as feels too tired and too much diarrhea). 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 -Reduced diarrhea Function: Ambulation:No aids, walks very slowly, frequent falls, balance is off. ADLs: iADLs: driving, handling his own finanaces Hearing:Fine Vision: Needs new glasses. Cognition: Has hx of encephalopathy, taking lactulose. HAs hit his head when falling. Palliative Performance Scale % Ambulation Activity and Evidence of Disease Self Care Intake Level of Consci ousness 100 Full Normal activity, no evidence of disease Full Normal Full 90 Full Normal activity, some evidence of disease Full Normal Full 80 Full Normal activity with effort, some evidence of disease Full Normal or reduced Full 70 Reduced Unable to do normal work, some evidence of disease Full Normal or reduced Full 60 Reduced Unable to do hobby or some housework, significant disease Occasional assist necessary Normal or reduced Full or confusion 50 Mainly sit/lie Unable to do any work, extensive disease Considerable assistance required Normal or reduced Full or confusion 40 Mainly in bed Unable to do any work, extensive disease Mainly assistance Normal or reduced Full, drowsy, or confusion 30 Totally bed bound Unable to do any work, extensive disease Total care Reduced Full, drowsy, or confusion 20 Totally bed bound Unable to do any work, extensive disease Total care Minimal sips Full, drowsy, or confusion 10 Totally bed bound Unable to do any work, extensive disease Total care Mouth care only Drowsy or coma 0 - - - - Patient Score: 80 Spiritual history: Raised zoroastrian, believes in higher power but not actively praying or attending any catholic hindu/group. Palliative review of systems: Not obtained today except as per HPI Pain: Dyspnea: GI symptoms: Appetite: Depression: Anxiety: None Emotional Distress: Spiritual/Existential Distress: Labs: Cr: 1.3?1.4 since December 2022 Liver panel: Bilirubin 1.3?1.5;AST 100?200s;ALT normal Albumin: 2.6 CBC: Hemoglobin 12.2. Platelets 102K, WBC 5.74 INR:1.3 Ammonia: 46 MELD score calculated today: 14 Advanced Care Planning: Advanced Directive: Does not have Health Care Agent: Would want his Mom to be HCA if she was still OK. COLST: None Limitations: Very briefly discussed today, he does not think he would like any limitations but would like to discuss in the future Assessment and Plan Assessment and plan (1) Palliative care encounter: Status: Acute Assessment and plan: 52-year-old gentleman who recently moved back to this area with partially compensated end-stage liver disease due to both alcohol abuse and genetic predisposition to liver disease. His most urgent needs currently are social service: He is looking for stable housing, to establish with a primary care medical provider as well as a multiple pressure riveter operator, to transition to [place] Medicaid. He connected today with our case management who will be referring him to [facility] community connections for additional help with accessing local resources. Brief discussion today regarding if he plans to stay in [place]. He describes his mom as one of his most important supports, which she did not realize until moving to [place]. She actually make sure that he took his medicines every day and he has been less adherent to this since on his own. However for now he plans to stay in [place]. Patient is very eager to follow-up with us and our office will contact him to set up outpatient appointment in 3 to 4 weeks. I am also hoping that [facility] will follow-up with him to help with mental health support. (2) Advanced care planning/counseling discussion: Status: Acute Assessment and plan: During our brief visit today, he does not have an advanced directive or healthcare agent form. He has never been asked to think about goals of care or any limitations of care. Goals discussed as per HPI. Healthcare agent: He was reluctant to appoint anyone as HCA. Finally said that he would feel comfortable having his mom do it as long as she remained healthy and cognitively intact. He declined to elect a secondary healthcare agent (neither his sister, nor his [place] friends. Declined to explain his reluctance to me). Forms were drawn up, witnessed, scanned into system and original given to him. Regarding any limitations of treatment: This was a very brief discussion and for now there is nothing he would not want to have. Previous notes mention that at times he feels that if he would go to sleep and not wake up, that would be okay. He agrees to future follow-up with palliative care team to explore further goals of care and any treatment limitations. 16 to 30 minutes spent today on Advance Care Planning. Patient and family participated voluntarily. Advance care planning may include (not limited to) explanation and discussion of advance directives, choosing and appointing healthcare agents, alternatives to various ACP tools, discussion of (and if indicated, completion of) COLST form, discussion of patient's values and overall goals for treatment, palliative and disease directive care options, ways to avoid hospital readmission including hospice discussions, care preferences should the patient's several other adverse health events.See today's palliative care note for additional information. (3) Cirrhosis: Status: Acute Assessment and plan: Patient's biggest issues with end-stage liver disease are: -Resultant ascites, more so the need for literally dozens of paracentesis every 2 to 4 weeks over the last 3+ years. Likely has not had any infections or complications. His multiple pressure riveter operator recommended against having a TIPS done. I suspect this is because of his history of hepatic encephalopathy. -Frequent falls likely multifactorial, including from his mild encephalopathy. He also seemed a little hazy about some recent events, what the follow-up plan was that he and Yulissa Montilla of case management had agreed upon ([facility] community connections will be following up with him to help with social service referrals) -History of encephalopathy and side effect from lactulose. He identifies diarrhea from lactulose as most life limiting symptom. He is also receiving rifaximin. Given that his goal of care is best quality of life possible, I am hoping that he and his PCP can work on tweaking his lactulose dose and adjusting his medications to decrease diarrhea and total number of stools. (4) ETOH abuse: Status: Chronic Assessment and plan: Discussed etiology of end-stage liver disease. He expressed frustration that multiple pressure riveter operator had never acknowledged genetic component of his liver disease. We discussed that unfortunately has no control over his genes. He does have control over his alcohol intake. Sounds like he has overall done very well, reporting completely abstaining from alcohol for 8 months up until recently. He did acknowledge that he needs to resume going to AA, as going daily had helped him maintain abstinence. Motivational counseling around resuming AA visits today. Advised not to drink any alcohol at all. (5) Ascites due to alcoholic cirrhosis: Status: Acute Assessment and plan: He will continue to follow-up with Dr. Latham regarding his ascites and continuing with paracentesis as needed. Hopefully adjustment in diuretics, potassium and magnesium supplements will prevent further hypokalemia. Unfortunately, magnesium supplements can present a Catch-22 (increasing diarrhea which increases potassium losses) PFSH All Active Problems Medication monitoring encounter (Acute) Ascites due to alcoholic cirrhosis (Acute) ETOH abuse (Chronic) Cirrhosis (Acute) Advanced care planning/counseling discussion (Acute) Palliative care encounter (Acute) Hypokalemia (Acute) Medical History Anxiety and depression Chronic GERD HTN (hypertension) Itching Surgical History History of esophagogastroduodenoscopy (EGD) S/P abdominal paracentesis (~02/2023) Social History Smoking/Tobacco Use Status: Current every day Tobacco Type: cigarettes Smoking risk assessment performed?: Yes Alcohol Intake: current Alcohol Intake frequency: a few times a month Alcohol type: wine and hard liquor Drug use: Current Sobriety Substance use type: marijuana Housing: other Do you feel safe at home: No Do you feel safe in your relationship?: Yes Exam Narrative Exam Narrative: Pleasant, well-groomed. color is good, no jaundice and not pale. Speech is fluid. Alert and oriented x3 (day, date, month, year). No obvious peripheral edema. Abdominal exam not done. Appears to be normal weight. Results Last Vital Signs Temp 35.4 C L 02/26/23 07:28 Pulse 66 02/26/23 07:28 Resp 16 02/26/23 07:28 BP 105/69 02/26/23 07:28 Pulse Ox 96 02/26/23 07:28 Labs 02/25/23 12:22 02/26/23 06:50 Labs: Laboratory Results - last 24 hr 02/25/23 02/25/23 02/25/23 12:22 12:22 12:22 WBC 5.74 RBC 4.30 L Hgb 12.2 L Hct 38.7 L MCV 90 MCH 28.4 MCHC 31.5 L RDW 19.3 H Plt Count 102 L MPV 10.3 Sodium 141 Potassium 2.8 L* Chloride 102 Carbon Dioxide 27.8 Anion Gap 11.2 H BUN 15 Creatinine 1.4 H Est GFR (CKD-EPI 2020) 60.10 Glucose 113 H Calcium 8.4 L Magnesium Total Bilirubin 1.3 H AST 126 H ALT 37 Alkaline Phosphatase 161 H Ammonia 46 H Total Protein 7.2 Albumin 2.6 L Add-On Test Request 02/25/23 02/25/23 02/26/23 12:22 21:35 06:50 WBC RBC Hgb Hct MCV MCH MCHC RDW Plt Count MPV Sodium 140 Potassium 3.3 L Chloride 103 Carbon Dioxide 27.7 Anion Gap 9.3 BUN 12 Creatinine 1.3 Est GFR (CKD-EPI 2020) 65.69 Glucose 86 Calcium 8.3 L Magnesium 1.6 L 1.4 L Total Bilirubin AST ALT Alkaline Phosphatase Ammonia Total Protein Albumin Add-On Test Request DONE
[2023-02-26] MEDS: Potassium Chloride Liquid 20 MEQ PKT 40 MEQ PO (11:51)
--- NOTE | 2023-02-26 12:23 | W.PM.PROGNOT ---
Date of Service Date of service: 02/26/23 Time of Service: 12:28 Assessment and Plan Assessment and plan (1) Hypokalemia: Status: Acute Assessment and plan: still having hypokalemia. He should be discharged on potssium supplements and repeat BMP should be done in the next week after dc. If he takes his lactulose as prescribed and uses his bumex as prescribed then he will need the potassium and magnesium to prevent low K+ and Mg++. Mg level was low again this morning at 1.4 so I have ordered additional bolus and he has been put on supplements. (2) HTN (hypertension): Assessment and plan: BP has not been elevated and seems to be controlled on his home meds (nadolol, diuretics: bumex, amiloride), (3) ETOH abuse: Status: Chronic Assessment and plan: patient reports continued occasional intake of alcohol. He needs to understand that any alcohol intake is not good in the setting of cirrhosis. He does not feel that he is going through any acute withdrawal. (4) Cirrhosis: Status: Acute Assessment and plan: continue current meds including Rifaximin, lactulose, diuretics and nadolol. (5) Chronic GERD: Assessment and plan: patient reports that his last EGD was by his GI doctor in [place] about 6 months ago. He says that he has varices but they were banded during an earlier EGD and they have been stable. He has not had TIPPS procedure. (6) Anxiety and depression: Assessment and plan: Current dose of Escitalopram 30 mg daily exceeds the recommended dosing in cirrhosis (10 mg daily). I would encourage him to decrease his dose to at least 20 mg daily and see if his depression and anxiety is unchanged. Subjective Subjective Interval history since last seen: Patient has no acute complaints. Abdomen feels much better since the paracentesis. His K+ is still low but improving at 3.2. I have ordered more oral replacement. I think that from medical standpoint he can be discharged this afternoon. I spoke w/ Yulissa from regarding getting him set up w/ a PCP. She indicated that she is going to set him up w/ Kushal Salgado through [facility]. Exam Narrative Exam Narrative: Patient is sitting up eating his lunch. No acute discomfort Abdomen: soft, nontender, no guarding, normal bowel sounds, no leakage from paracentesis site Legs/feet: 1+ edema Objective Last Vital Signs Temp 35.4 C L 02/26/23 07:28 Pulse 66 02/26/23 07:28 Resp 16 02/26/23 07:28 BP 105/69 02/26/23 07:28 Pulse Ox 96 02/26/23 07:28 Laboratory Results - last 24 hr 02/25/23 02/25/23 02/25/23 12:22 12:22 12:22 WBC 5.74 RBC 4.30 L Hgb 12.2 L Hct 38.7 L MCV 90 MCH 28.4 MCHC 31.5 L RDW 19.3 H Plt Count 102 L MPV 10.3 Sodium 141 Potassium 2.8 L* Chloride 102 Carbon Dioxide 27.8 Anion Gap 11.2 H BUN 15 Creatinine 1.4 H Est GFR (CKD-EPI 2020) 60.10 Glucose 113 H Calcium 8.4 L Magnesium Total Bilirubin 1.3 H AST 126 H ALT 37 Alkaline Phosphatase 161 H Ammonia 46 H Total Protein 7.2 Albumin 2.6 L Add-On Test Request 02/25/23 02/25/23 02/26/23 12:22 21:35 06:50 WBC RBC Hgb Hct MCV MCH MCHC RDW Plt Count MPV Sodium 140 Potassium 3.3 L Chloride 103 Carbon Dioxide 27.7 Anion Gap 9.3 BUN 12 Creatinine 1.3 Est GFR (CKD-EPI 2020) 65.69 Glucose 86 Calcium 8.3 L Magnesium 1.6 L 1.4 L Total Bilirubin AST ALT Alkaline Phosphatase Ammonia Total Protein Albumin Add-On Test Request DONE Time Spent with Patient Time Spent with Patient: <25 minutes Time was spent: preparing to see the patient(eg.review tests), ordering medications,tests, procedures, referring, communicating with other health managed care coordinator, indepentently interpreting results, counseling the patient and care coordination
[2023-02-26] MEDS: MAGNESIUM SULFATE 2 GM/50 ML BAG IVPB (12:56)
[2023-02-26] MEDS: Lactulose 20 GM/30 ML CUP 15 GM PO (13:02)
--- NOTE | 2023-02-26 13:57 | DSE_ITS ---
Date of service: 02/26/23 Time of Service: 13:57 DS: Diagnosis Discharge Diagnosis (1) Hypokalemia: Status: Acute (2) HTN (hypertension): (3) ETOH abuse: Status: Chronic (4) Cirrhosis: Status: Acute (5) Chronic GERD: (6) Anxiety and depression: Discharge Plan Disposition Patient Disposition: Home Condition: Good Discharge Details Reason For Visit: Therapeutic paracentesis Admit Date/Time: 02/25/23 13:15 Admit Provider: Rick Latham Attending Provider: Rick Latham Home Meds and New Rx's Prescriptions: New potassium chloride 20 mEq tablet extended release 20 meq PO BID Qty: 60 0RF magnesium gluconate 27.5 mg magne- sium (500 mg) tablet 27.5 mg PO DAILY Qty: 30 0RF Continued midodrine 5 mg tablet 10 mg PO TID hydroxyzine pamoate 50 mg capsule 50 mg PO BID omeprazole 40 mg capsule,delayed release(DR/EC) 40 mg PO DAILY nadolol 20 mg Tablet 20 mg PO HS amiloride 5 mg tablet 10 mg PO DAILY bumetanide 0.5 mg Tablet 0.5 mg PO DAILY niacinamide 100 mg Tablet 150 mg PO DAILY escitalopram oxalate 20 mg Tablet 20 mg PO DAILY acamprosate 333 mg tablet,delayed release (DR/EC) 666 mg PO TID lactulose [Constulose] 10 gram/15 mL Solution 15 ml PO TID Xifaxan 550 mg tablet 550 mg PO BID Discontinued escitalopram oxalate 10 mg Tablet 10 mg PO DAILY Discharge Instructions Instructions: Escitalopram (By mouth), Hypokalemia (DC), Hypomagnesemia (DC) Additional Instructions: Your escitalopram dose has been reduced to 20 mg daily. The maximum recommended dosing in cirrhosis, even mild cirrhosis is 10 mg daily. However, you have been on 30 mg per day. You should work w/ your new provider regarding optimum medications for your generalized anxiety, but you should start by decreasing to 20 mg per day. you have been put on potassium and magnesium supplementation and should get follow up labs in a week to be sure that your levels are stable. -activity as tolerated -low sodium diet less than 2000mg a day. -You need to call [facility] and establish care. You need to have your potassium/electrolyte levels checked regularily. [phone] -F/u w/ Dr. Latham 03/13 at !pm to asses if you need further paracentisis (tap) Stand Alone Forms: Nursing Discharge Form Referrals: Kushal Salgado, [employer]EL[employer] [NURSE PRACTITIONER] - 03/08/23 1:00 pm (Please pepper picker new patient paperwork from the office ) Rick Latham MD [ [facility] STAFF PHYSICIAN] - (Please call the office when you would like to make an Appointment per Dr Verma office ) Activity:: Activity as Tolerated Activity:: Activity as Tolerated Equipment/Supplies:: No Equipment Needed Diet:: Low Sodium Discharge Orders Discharge Orders: Discharge Order (Routine); Ordered 02/26/23 Ordered By: Amisha Barbosa Other Ambulatory Orders: Basic Metabolic Panel (Routine) Timeframe: 1 Week Facility: [facility] - Location: Laboratory Outpatient - [facility] Ordered By: Earl Khalil DS: Summary Time Spent with Patient providing and/or coordinating discharge services: Greater than 30 minutes Status at Discharge Functional status at discharge: independent ambulation Overall status at discharge: patient is not back to baseline Mental Status: mental status grossly normal Speech and Movement: speech and movement normal Mood: congruent mood Affect: normal affect Exam Psych Mental Status: mental status grossly normal Speech and Movement: speech and movement normal Mood: congruent mood Affect: normal affect DS: Data Vitals/I&O Vitals and I&O: Vital Signs Temperature 35.4 C L 02/26/23 07:28 Temperature Source Tympanic 02/26/23 07:28 Pulse 66 02/26/23 07:28 Pulse Rhythm Regular 02/26/23 08:35 Respiratory Rate 16 02/26/23 07:28 Respiratory Effort Normal 02/26/23 08:35 Respiratory Depth Normal 02/26/23 08:35 Respiratory Pattern Normal 02/26/23 08:35 Blood Pressure 105/69 02/26/23 07:28 Pulse Oximetry 96 02/26/23 07:28 Oxygen Delivery Method Room Air 02/26/23 07:28 Oxygen Flow Rate 0 02/26/23 07:28 Pain Level 0 02/26/23 07:28 Intake & Output 02/25/23 02/26/23 02/26/23 23:59 11:59 23:59 Intake Total 500 / 500 Output Total Balance 499 / 499 Weight 83.6 kg Intake: IV 200 / 200 Oral 300 / 300 Output: Urine Other: Urine Color Yellow Urine Appearance Clear Stool Size Copious Stool Characteristics Brown Voiding Methods Toilet Toilet Data Completed and Pending Labs on day of discharge: Labs from last 24 hours 02/26/23 02/25/23 02/25/23 06:50 21:35 12:22 Sodium 140 Potassium 3.3 L Chloride 103 Carbon Dioxide 27.7 Anion Gap 9.3 BUN 12 Creatinine 1.3 Est GFR (CKD-EPI 2020) 65.69 Glucose 86 Calcium 8.3 L Magnesium 1.4 L 1.6 L Add-On Test Request DONE PFS All Active Problems Medication monitoring encounter (Acute) Ascites due to alcoholic cirrhosis (Acute) ETOH abuse (Chronic) Cirrhosis (Acute) Advanced care planning/counseling discussion (Acute) Palliative care encounter (Acute) Hypokalemia (Acute) Medical History Anxiety and depression Chronic GERD HTN (hypertension) Itching Surgical History History of esophagogastroduodenoscopy (EGD) S/P abdominal paracentesis (~02/2023) Social History Smoking/Tobacco Use Status: Current every day Tobacco Type: cigarettes Smoking risk assessment performed?: Yes Alcohol Intake: current Alcohol Intake frequency: a few times a month Alcohol type: wine and hard liquor Drug use: Current Sobriety Substance use type: marijuana Housing: other Do you feel safe at home: No Do you feel safe in your relationship?: Yes Time Spent with Patient Time Spent with Patient: <45 minutes Time was spent: preparing to see the patient(eg.review tests), obtaining and/or reviewing separately otained hiistory, ordering medications,tests, procedures, referring, communicating with other health direct care counselor, indepentently interpreting results, counseling the patient and care coordination
--- NOTE | 2023-02-26 14:55 | CHAPLAIN ---
Go was sitting up in bed when I visited. He easily engaged in conversation, telling me about moving her from [place]. His mom is back in [place], according to the Palliative Care report, Go moved here in December. He had been receiving paracentesis from emergency rooms prior to this admission, and someone from [facility] will help him find a primary care physician.
--- NOTE | 2023-02-26 18:41 | CMDISCH_ITS ---
Date of service: 02/26/23 Time of Service: 18:41 LACE Index Scoring Tool Questions: Length of Stay (in days): 1 Was the patient admitted via the E.D.?: No Comorbidities: Liver or Renal Disease E.D. Visits: 1 Answers: Total Score: 7 Risk of Readmission: Low Risk Care Management Discharge Plan Reason for Hospitalization: Therapeutic paracentesis Discharge Plan: Go returned home today with no new services. JASON sent a referral to [facility] for insurance and housing supports. JASON also sent a referral to [facility], at MD request. Go's friend drove him home via private vehicle. He will follow up with Brenda Campbell, and his discharge plan of care. He is happy to be going home. Patient/Family Education Needs: Review discharge instructions and limitations, discussion of self care needs including ask me three.
== END 2023-02-26 15:38 | disposition home or self-care (01) ==
LOC: MS 21:49
PROVIDERS: Internal Medicine; Admitting Provider Surgery; Visit Provider Surgery
PROC: 0W9G3ZZ Drainage of Peritoneal Cavity, Percutaneous Approach (ICD-10-PCS; CPT 49082; principal; 2023-02-25 11:45)
DX: E87.6 Hypokalemia (principal); K70.31 Alcoholic cirrhosis of liver with ascites; I10 Essential (primary) hypertension; F10.10 Alcohol abuse, uncomplicated; K21.9 Gastro-esophageal reflux disease without esophagitis; F41.8 Other specified anxiety disorders; F17.210 Nicotine dependence, cigarettes, uncomplicated; F12.90 Cannabis use, unspecified, uncomplicated; Z79.899 Other long term (current) drug therapy; E46 Unspecified protein-calorie malnutrition; K76.6 Portal hypertension
CPT/HCPCS: 49083; 36415; 80048; 80053; 85027; 96365; 96366; 96375; 99222; 99239; 82140; 83735; 99231; G0378; J1644; J2270; J3480; J3490

== ENCOUNTER → 2023-03-13 13:14 | Outpatient (BNVA) | payer MEDICARE, SELFPAY | PROVIDERS: PCP Nurse Practitioner Family; Visit Provider Surgery | DX: K74.60 Unspecified cirrhosis of liver (principal) | CPT/HCPCS: 49082 ==

== ENCOUNTER 2023-03-22 07:02 | Day surgery (SDC) | payer MEDICARE, SELFPAY ==
[2023-03-22 07:12] VITALS: BP 129/83; PULSE 99; RESP 16; TEMP 36.4; O2SAT 99
[2023-03-22] MEDS: Normal Saline Flush 10 ML SYR IV (07:33)
--- NOTE | 2023-03-22 09:43 | W.PM.DSUDISC ---
Date of service: 03/22/23 Time of Service: 09:43 Discharge Plan Disposition Patient Disposition: Home Condition: Good Discharge Details Reason For Visit: Therapeutic paracentesis Attending Provider: Rick Latham Primary Care Provider: Kushal Salgado Home Meds and New Rx's Prescriptions: Continued midodrine 5 mg tablet 10 mg PO TID hydroxyzine pamoate 50 mg capsule 50 mg PO BID omeprazole 40 mg capsule,delayed release(DR/EC) 40 mg PO DAILY nadolol 20 mg Tablet 20 mg PO HS amiloride 5 mg tablet 10 mg PO DAILY bumetanide 0.5 mg Tablet 0.5 mg PO DAILY niacinamide 100 mg Tablet 150 mg PO DAILY escitalopram oxalate 20 mg Tablet 20 mg PO DAILY acamprosate 333 mg tablet,delayed release (DR/EC) 666 mg PO TID lactulose [Constulose] 10 gram/15 mL Solution 15 ml PO TID Xifaxan 550 mg tablet 550 mg PO BID potassium chloride 20 mEq tablet extended release 20 meq PO BID Qty: 60 0RF magnesium gluconate 27.5 mg magne- sium (500 mg) tablet 27.5 mg PO DAILY Qty: 30 0RF Discharge Instructions Additional Instructions: Go, it was great seeing you today, and I am glad you are feeling a little better after paracentesis. We will continue helping to take care of you as your relationship with [facility] evolves. Like we talked about, if at any point you need any other opinions, just let me know, and we can help facilitate that. I mentioned during the procedure looking into the hub in [place]. The link is [email or web address] I wonder if you might be able to find something there to help and rich your day-to-day living. I also hope that referral to the palliative care team will offer some support outside of the paracentesis. Activity:: Activity as Tolerated Diet:: As Tolerated DS: Diagnosis Discharge Diagnosis (1) Ascites due to alcoholic cirrhosis: Status: Acute
--- NOTE | 2023-03-22 09:48 | OPPNE_ITS ---
Date of service: 03/22/23 Time of Service: 09:48 Procedure Note Date of procedure: 03/22/23 Procedure: Therapeutic paracentesis Surgeon/Proceduralist/Physician: Rick Latham Procedure Diagnosis: Alcoholic cirrhosis Procedure Indications: Go is a 52-year-old male with alcoholic cirrhosis and chronic tense ascites. He is here for therapeutic paracentesis because of increasing abdominal discomfort and some exertional dyspnea. Procedure Description: I started by performing a limited ultrasound of the abdomen to identify approp riate site for paracentesis. Next, I selected the left lower quadrant as the ideal site for paracentesis. I then prepped and draped the abdomen. Next, using ultrasound guidance, I anesthetized the skin with 1% lidocaine with epinephrine. I used the ultrasound to guide the needle down to the peritoneal level which was also anesthetized. I then made a small incision in the skin with a 11 blade scalpel. Next, I advanced the 5 Argentine paracentesis needle and catheter through the incision and into the peritoneal cavity under the direct vision of the ultrasound. I aspirated ascites. Next, I gently advance the catheter and remove the needle. I affixed drainage tubing, and began draining the ascites with the assistance of Vacutainer's. I drained approximately 4200 mL of ascites. A Band-Aid was used to dress the wound.
[2023-03-22 09:52] VITALS: BP 120/87; PULSE 87; RESP 17; TEMP 36.5; O2SAT 95
[2023-03-22] MEDS: ALBUMIN HUMAN 25 GM/100 ML BTL IVPB (09:59)
[2023-03-22 10:27] VITALS: BP 119/66; PULSE 96; RESP 17; TEMP 37; O2SAT 97
== END 2023-03-22 10:43 | disposition home or self-care (01) ==
PROVIDERS: PCP Nurse Practitioner Family; Visit Provider Surgery
PROC: 0W9G3ZZ Drainage of Peritoneal Cavity, Percutaneous Approach (ICD-10-PCS; CPT 49082; principal; 2023-03-22 08:30)
DX: K70.31 Alcoholic cirrhosis of liver with ascites (principal)
CPT/HCPCS: 49083; 96365

== ENCOUNTER 2023-03-29 10:02 | Day surgery (SDC) | payer MEDICARE, SELFPAY ==
[2023-03-29 10:26] VITALS: BP 126/99; PULSE 101; RESP 18; TEMP 36.3; O2SAT 98
[2023-03-29] MEDS: Normal Saline 10 ML VIAL IJ (10:58)
--- NOTE | 2023-03-29 12:24 | W.PM.DSUDISC ---
Date of service: 03/29/23 Time of Service: 12:24 Discharge Plan Disposition Patient Disposition: Home Condition: Good Discharge Details Reason For Visit: Paracentesis Attending Provider: Rick Latham Primary Care Provider: Kushal Salgado Home Meds and New Rx's Prescriptions: Continued lactulose [Constulose] 10 gram/15 mL solution 15 ml PO BID Patient Comments: If had 3 to 4 BMs daily, okay to hold second dose per day. midodrine 5 mg tablet 10 mg PO TID hydroxyzine pamoate 50 mg capsule 50 mg PO BID omeprazole 40 mg capsule,delayed release(DR/EC) 40 mg PO DAILY amiloride 5 mg tablet 10 mg PO DAILY bumetanide 0.5 mg Tablet 0.5 mg PO DAILY niacinamide 100 mg Tablet 150 mg PO DAILY escitalopram oxalate 20 mg Tablet 20 mg PO DAILY acamprosate 333 mg tablet,delayed release (DR/EC) 666 mg PO TID Hold Instructions: Holding Xifaxan 550 mg tablet 550 mg PO BID magnesium gluconate 27.5 mg magne- sium (500 mg) tablet 27.5 mg PO DAILY Qty: 30 0RF Discharge Instructions Activity:: Activity as Tolerated Diet:: As Tolerated DS: Diagnosis Discharge Diagnosis (1) Cirrhosis: Status: Acute
[2023-03-29 12:25] VITALS: BP 127/87; PULSE 92; RESP 18; TEMP 36.3; O2SAT 96
--- NOTE | 2023-03-29 12:26 | W.PROCNOTE ---
Date of service: 03/29/23 Time of Service: 12:27 Procedure Note Date of procedure: 03/29/23 Procedure: Therapeutic paracentesis Surgeon/Proceduralist/Physician: Rick Latham Procedure Diagnosis: Alcoholic cirrhosis Procedure Indications: Go is 52 years old. He has alcoholic cirrhosis and chronic ascites. He is undergoing therapeutic paracentesis for increasing abdominal pain and shortness of breath Procedure Description: I started by performing a limited ultrasound of the abdomen to identify appropriate site for paracentesis. Next, I selected the left lower quadrant as the ideal site for paracentesis. I then prepped and draped the abdomen. Next, using ultrasound guidance, I anesthetized the skin with 1% lidocaine with epinephrine. I used the ultrasound to guide the needle down to the peritoneal level which was also anesthetized. I then made a small incision in the skin with a 11 blade scalpel. Next, I advanced the 5 South Korean paracentesis needle and catheter through the incision and into the peritoneal cavity under the direct vision of the ultrasound. I aspirated straw-colored ascites. Next, I gently advance the catheter and remove the needle. I affixed drainage tubing, and began draining the ascites with the assistance of Vacutainer's. As the flow decreased, I assisted the patient to the left lateral decubitus position and transitioned to hand pumping to improve drainage. Once the ascites stopped flowing, I removed the catheter and used a Band-Aid to dress the wound. In total I drained about 6100 mL of fluid.
[2023-03-29] MEDS: Normal Saline Flush 10 ML SYR IV (12:34)
[2023-03-29] MEDS: ALBUMIN HUMAN 25 GM/100 ML BTL IVPB (12:34)
[2023-03-29 12:51] VITALS: BP 125/70; PULSE 95; RESP 16; TEMP 36.5; O2SAT 96
== END 2023-03-29 13:00 | disposition home or self-care (01) ==
PROVIDERS: PCP Nurse Practitioner Family; Visit Provider Surgery
PROC: 0W9G3ZZ Drainage of Peritoneal Cavity, Percutaneous Approach (ICD-10-PCS; CPT 49082; principal; 2023-03-29 12:15)
DX: K70.31 Alcoholic cirrhosis of liver with ascites (principal)
CPT/HCPCS: 49083

== ENCOUNTER 2023-04-05 10:15 | Day surgery (SDC) | payer MEDICARE, SELFPAY ==
[2023-04-05 10:45] VITALS: BP 139/96; PULSE 106; RESP 16; TEMP 36.3; O2SAT 98
[2023-04-05 14:24] VITALS: BP 126/84; PULSE 100; RESP 19; TEMP 36.7; O2SAT 97
--- NOTE | 2023-04-05 14:26 | W.PROCNOTE ---
Date of service: 04/05/23 Time of Service: 14:26 Procedure Note Date of procedure: 04/05/23 Procedure: Paracentesis Surgeon/Proceduralist/Physician: Rick Latham Procedure Diagnosis: Tense ascites Procedure Indications: Go is a 52-year-old male with alcoholic cirrhosis and chronic ascites. He is here for paracentesis. Procedure Description: I started by performing a limited ultrasound of the abdomen to identify appropriate site for paracentesis. Next, I selected the left lower quadrant for paracentesis. I then prepped and draped the abdomen. Next, using ultrasound guidance, I anesthetized the skin with 1% lidocaine with epinephrine. I used the ultrasound to guide the needle down to the peritoneal level which was also anesthetized. I then made a small incision in the skin with a 11 blade scalpel. Next, I advanced the 5 Gabonese paracentesis needle and catheter through the incision and into the peritoneal cavity under the direct vision of the ultrasound. I aspirated straw-colored ascites. Next, I gently advance the catheter and remove the needle. I affixed drainage tubing, and began draining the ascites with the assistance of Vacutainer's. As the flow decreased, I assisted the patient to the left lateral decubitus position to improve drainage, and transitioned to hand pumping for his comfort. Once the ascites stopped flowing, I removed the catheter and used a Band-Aid to dress the wound. In total I drained approximately 8000 mL
[2023-04-05] MEDS: ALBUMIN HUMAN 25 GM/100 ML BTL IVPB ×2 (14:44→15:14)
[2023-04-05] MEDS: Normal Saline Flush 10 ML SYR IV (14:45)
[2023-04-05 15:40] VITALS: BP 131/71; PULSE 79; RESP 16; TEMP 36.4; O2SAT 98
== END 2023-04-05 15:50 | disposition home or self-care (01) ==
PROVIDERS: PCP Nurse Practitioner Family; Visit Provider Surgery
PROC: 0W9G3ZZ Drainage of Peritoneal Cavity, Percutaneous Approach (ICD-10-PCS; CPT 49082; principal; 2023-04-05 12:45)
DX: K70.31 Alcoholic cirrhosis of liver with ascites (principal)
CPT/HCPCS: 49083; 96365

== ENCOUNTER 2023-04-11 09:14 | PSDC | payer MEDICARE, SELFPAY ==
[2023-04-11 09:34] VITALS: BP 133/97; PULSE 104; RESP 20; TEMP 36.5; O2SAT 99
[2023-04-11 10:42] VITALS: BP 128/91; PULSE 90; RESP 16; TEMP 36.6; O2SAT 99
[2023-04-11] MEDS: ALBUMIN HUMAN 25 GM/100 ML BTL IVPB ×2 (10:53→11:01)
[2023-04-11] MEDS: Normal Saline Flush 10 ML SYR (10:58)
--- NOTE | 2023-04-11 11:27 | W.PM.DSUDISC ---
Date of service: 04/11/23 Time of Service: 11:27 Discharge Plan Disposition Patient Disposition: Home Condition: Good Discharge Details Reason For Visit: Paracentesis Attending Provider: Rick Latham Primary Care Provider: Kushal Slagado Home Meds and New Rx's Prescriptions: No Action lactulose [Constulose] 10 gram/15 mL solution 15 ml PO BID Patient Comments: If had 3 to 4 BMs daily, okay to hold second dose per day. escitalopram oxalate 20 mg tablet 20 mg PO DAILY Qty: 90 3RF midodrine 5 mg tablet 10 mg PO TID hydroxyzine pamoate 50 mg capsule 50 mg PO BID omeprazole 40 mg capsule,delayed release(DR/EC) 40 mg PO DAILY amiloride 5 mg tablet 10 mg PO DAILY bumetanide 0.5 mg Tablet 0.5 mg PO DAILY acamprosate 333 mg tablet,delayed release (DR/EC) 666 mg PO TID Hold Instructions: Holding Xifaxan 550 mg tablet 550 mg PO BID magnesium gluconate 27.5 mg magne- sium (500 mg) tablet 27.5 mg PO DAILY Qty: 30 0RF Discharge Instructions Additional Instructions: Go, you did great today, no but was not too uncomfortable. We all enjoyed seeing you. I hope you have an okay week, and let me know if you need anything in the meantime. Stand Alone Forms: Rubén Pardo (DSU) Discharge Orders Discharge Orders: Discharge Order (Routine); Ordered 04/11/23 Ordered By: Rick Latham Discharge Data Discharge Date/Time-TO BE ENTERED AT DEPARTURE: 04/11/23 11:25
--- NOTE | 2023-04-11 15:11 | OPPNE_ITS ---
Date of service: 04/11/23 Time of Service: 15:11 Procedure Note Date of procedure: 04/11/23 Procedure: Paracentesis Surgeon/Proceduralist/Physician: Rick Latham Procedure Diagnosis: Tense ascites Procedure Indications: Go is a 52-year-old male with chronic alcoholic cirrhosis and tense ascites Procedure Description: I started by performing a limited ultrasound of the abdomen to identify appropriate site for paracentesis. Next, I selected the left lower quadrant as the ideal site for paracentesis. I then prepped and draped the abdomen. Next, using ultrasound guidance, I anesthetized the skin with 1% lidocaine with epinephrine. I used the ultrasound to guide the needle down to the peritoneal level which was also anesthetized. I then made a small incision in the skin with a 11 blade scalpel. Next, I advanced the 5 Vietnamese paracentesis needle and catheter through the incision and into the peritoneal cavity under the direct vision of the ultrasound. Ascites of straw-colored and. Next, I gently advance the catheter and remove the needle. I affixed drainage tubing, and began draining the ascites with the assistance of Vacutainer's. As the flow decreased, I assisted the patient to the left lateral decubitus position to improve drainage. Once the ascites stopped flowing, I removed the catheter and used a Band-Aid to dress the wound. In total I drained just about 8000 ascites
== END 2023-04-11 11:25 | disposition home or self-care (01) ==
PROVIDERS: PCP Nurse Practitioner Family; Visit Provider Surgery
PROC: 0W9G3ZZ Drainage of Peritoneal Cavity, Percutaneous Approach (ICD-10-PCS; CPT 49082; principal; 2023-04-11 10:30)
DX: K70.31 Alcoholic cirrhosis of liver with ascites (principal)
CPT/HCPCS: 49083

== ENCOUNTER 2023-04-18 10:54 | Day surgery (SDC) | payer MEDICARE, SELFPAY ==
--- NOTE | 2023-04-17 21:01 | W.PM.DSUDISC ---
Date of service: 04/18/23 Time of Service: 15:03 Discharge Plan Disposition Patient Disposition: Home Condition: Good Discharge Details Reason For Visit: Therapeutic paracenetesis Attending Provider: Rick Latham Primary Care Provider: Kushal Salgado Home Meds and New Rx's Prescriptions: Continued lactulose [Constulose] 10 gram/15 mL solution 15 ml PO BID Patient Comments: If had 3 to 4 BMs daily, okay to hold second dose per day. escitalopram oxalate 20 mg tablet 20 mg PO DAILY Qty: 90 3RF midodrine 5 mg tablet 10 mg PO TID hydroxyzine pamoate 50 mg capsule 50 mg PO BID omeprazole 40 mg capsule,delayed release(DR/EC) 40 mg PO DAILY amiloride 5 mg tablet 10 mg PO DAILY bumetanide 0.5 mg Tablet 0.5 mg PO DAILY acamprosate 333 mg tablet,delayed release (DR/EC) 666 mg PO TID Hold Instructions: Holding Xifaxan 550 mg tablet 550 mg PO BID magnesium gluconate 27.5 mg magne- sium (500 mg) tablet 27.5 mg PO DAILY Qty: 30 0RF Discharge Instructions Additional Instructions: Go I hope the para today relieves some of your cough and belly discomfort. I will see you next week. Activity:: Activity as Tolerated Diet:: As Tolerated DS: Diagnosis Discharge Diagnosis (1) Ascites due to alcoholic cirrhosis: Status: Acute
--- NOTE | 2023-04-17 21:05 | W.PROCNOTE ---
Date of service: 04/18/23 Time of Service: 15:04 Procedure Note Date of procedure: 04/18/23 Procedure: Therapuetic paracentesis Surgeon/Proceduralist/Physician: Rick Latham Procedure Diagnosis: tense ascites Procedure Indications: Go is a 52 year old man with tense ascites from chronic alcoholic cirrhosis. Procedure Description: I started by performing a limited ultrasound of the abdomen to identify appropriate site for paracentesis. Next, I selected the left lower quadrant as the ideal site for paracentesis. I then prepped and draped the abdomen. Next, using ultrasound guidance, I anesthetized the skin with 1% lidocaine with epinephrine. I used the ultrasound to guide the needle down to the peritoneal level which was also anesthetized. I then made a small incision in the skin with a 11 blade scalpel. Next, I advanced the 5 Azeri paracentesis needle and catheter through the incision and into the peritoneal cavity under the direct vision of the ultrasound. I aspirated straw colored ascites. Next, I gently advance the catheter and remove the needle. I affixed drainage tubing, and began draining the ascites with the assistance of Vacutainer's. As the flow decreased, I assisted the patient to the left lateral decubitus position to improve drainage and changed to hand pumping. Once the ascites stopped flowing, I removed the catheter and used a band aid to dress the wound. In total I drained 8050 ml of fluid.
[2023-04-18 11:13] VITALS: BP 144/101; PULSE 104; RESP 20; TEMP 36.7; O2SAT 97
[2023-04-18] MEDS: Ondansetron 4 MG/2 ML VIAL IVP (11:34)
[2023-04-18] MEDS: Normal Saline Flush 10 ML SYR IV ×2 (11:34→15:17)
[2023-04-18 12:31] LABS: Source Nasal/Nares
[2023-04-18 13:04] LABS: COVID-19 PCR Negative (Negative)
[2023-04-18 15:11] VITALS: BP 121/81; PULSE 91; RESP 16; TEMP 37; O2SAT 98
[2023-04-18] MEDS: ALBUMIN HUMAN 25 GM/100 ML BTL IVPB ×2 (15:16→15:43)
== END 2023-04-18 16:07 | disposition home or self-care (01) ==
LOC: SUR 10:54
PROVIDERS: PCP Nurse Practitioner Family; Visit Provider Surgery
PROC: 0W9G3ZZ Drainage of Peritoneal Cavity, Percutaneous Approach (ICD-10-PCS; CPT 49082; principal; 2023-04-18 12:00)
DX: K70.31 Alcoholic cirrhosis of liver with ascites (principal)
CPT/HCPCS: 49083; 87635; J2405

== ENCOUNTER 2023-04-25 11:42 | Day surgery (SDC) | payer MEDICARE, SELFPAY ==
--- NOTE | 2023-04-24 20:10 | W.PM.DSUDISC ---
Date of service: 04/25/23 Time of Service: 14:01 Discharge Plan Disposition Patient Disposition: Home Condition: Good Discharge Details Reason For Visit: paracentesis Attending Provider: Rick Latham Primary Care Provider: Kushal Salgado Home Meds and New Rx's Prescriptions: Continued lactulose [Constulose] 10 gram/15 mL solution 15 ml PO BID Patient Comments: If had 3 to 4 BMs daily, okay to hold second dose per day. escitalopram oxalate 20 mg tablet 20 mg PO DAILY Qty: 90 3RF midodrine 5 mg tablet 10 mg PO TID hydroxyzine pamoate 50 mg capsule 50 mg PO BID omeprazole 40 mg capsule,delayed release(DR/EC) 40 mg PO DAILY amiloride 5 mg tablet 10 mg PO DAILY bumetanide 0.5 mg Tablet 0.5 mg PO DAILY acamprosate 333 mg tablet,delayed release (DR/EC) 666 mg PO TID Hold Instructions: Holding Xifaxan 550 mg tablet 550 mg PO BID magnesium gluconate 27.5 mg magne- sium (500 mg) tablet 27.5 mg PO DAILY Qty: 30 0RF Discharge Instructions Additional Instructions: Go, I hope you feel better through the weekend. I did let the office know that you will be calling to sort out another paracentesis for next week. Activity:: Activity as Tolerated Diet:: As Tolerated Discharge Orders Discharge Orders: Discharge Order (Routine); Ordered 04/24/23 Ordered By: Rick Latham DS: Diagnosis Discharge Diagnosis (1) Ascites due to alcoholic cirrhosis: Status: Chronic
--- NOTE | 2023-04-24 20:11 | W.PROCNOTE ---
Date of service: 04/25/23 Time of Service: 14:08 Procedure Note Date of procedure: 04/25/23 Procedure: paracentesis Surgeon/Proceduralist/Physician: Rick Latham Procedure Diagnosis: Ascites Procedure Indications: Go is a 52-year-old male with alcoholic cirrhosis and ascites. Procedure Description: I started by performing a limited ultrasound of the abdomen to identify appropriate site for paracentesis. Next, I selected the left lower quadrant as the ideal site for paracentesis. I then prepped and draped the abdomen. Next, using ultrasound guidance, I anesthetized the skin with 1% lidocaine with epinephrine. I used the ultrasound to guide the needle down to the peritoneal level which was also anesthetized. I then made a small incision in the skin with a 11 blade scalpel. Next, I advanced the 5 Ukrainian paracentesis needle and catheter through the incision and into the peritoneal cavity under the direct vision of the ultrasound. I aspirated thin, straw-colored ascites. Next, I gently advance the catheter and remove the needle. I affixed drainage tubing, and began draining the ascites with the assistance of Vacutainer's. As flow decreased, I assisted the patient to the left lateral decubitus position to improve drainage and switched over to a hand pump. Once the ascites stopped flowing, I removed the catheter and used a Band-Aid to dress the wound. In total I drained 7800 mL
[2023-04-25 11:54] VITALS: BP 142/92; PULSE 100; RESP 19; TEMP 36.7; O2SAT 97
[2023-04-25 13:48] VITALS: BP 116/87; PULSE 88; RESP 18; TEMP 36.8; O2SAT 97
[2023-04-25] MEDS: ALBUMIN HUMAN 25 GM/100 ML BTL IVPB (14:01)
[2023-04-25] MEDS: Normal Saline Flush 10 ML SYR IV (14:01)
== END 2023-04-25 14:55 | disposition home or self-care (01) ==
LOC: SUR 11:42
PROVIDERS: PCP Nurse Practitioner Family; Visit Provider Surgery
PROC: 0W9G3ZZ Drainage of Peritoneal Cavity, Percutaneous Approach (ICD-10-PCS; CPT 49082; principal; 2023-04-25 13:15)
DX: K70.31 Alcoholic cirrhosis of liver with ascites (principal)
CPT/HCPCS: 49083; 96365

== ENCOUNTER 2023-05-03 14:27 | Day surgery (SDC) | payer MEDICARE, SELFPAY ==
--- NOTE | 2023-05-02 21:20 | W.PM.DSUDISC ---
Date of service: 05/03/23 Time of Service: 15:55 Discharge Plan Disposition Patient Disposition: Home Condition: Fair Discharge Details Reason For Visit: Paracentisicis Attending Provider: Amisha Barbosa Primary Care Provider: Kushal Salgado Home Meds and New Rx's Prescriptions: No Action lactulose [Constulose] 10 gram/15 mL solution 15 ml PO BID Patient Comments: If had 3 to 4 BMs daily, okay to hold second dose per day. escitalopram oxalate 20 mg tablet 20 mg PO DAILY Qty: 90 3RF midodrine 5 mg tablet 10 mg PO TID hydroxyzine pamoate 50 mg capsule 50 mg PO BID omeprazole 40 mg capsule,delayed release(DR/EC) 40 mg PO DAILY amiloride 5 mg tablet 10 mg PO DAILY bumetanide 0.5 mg Tablet 0.5 mg PO DAILY acamprosate 333 mg tablet,delayed release (DR/EC) 666 mg PO TID Hold Instructions: Holding Xifaxan 550 mg tablet 550 mg PO BID magnesium gluconate 27.5 mg magne- sium (500 mg) tablet 27.5 mg PO DAILY Qty: 30 0RF Discharge Instructions Additional Instructions: A paracentesis is a procedure to remove extra fluid from your belly (abdomen). This fluid buildup in the abdomen is called ascites. This fluid may be removed to decrease abdominal pressure or to examine the fluid in the laboratory. Fluid buildup in your abdomen can sometimes cause problems with your bowels and breathing if it is not removed. What should I expect after the paracentesis? Talk W/ Kushal Salgado about Naltrexone You might notice there is less tightness around your abdomen. You will be able to breathe better, which should help you feel more comfortable. How do I care for myself at home? ?? If you have pain after the procedure, your primary care provider can prescribe or recommend appropriate medications. ? It is normal for a small amount of fluid to leak from the puncture site. Keep the area dry and covered to prevent infection. ?? After 24 hours, you can remove your bandage and shower. You can wash the needle site gently with soap and warm water. ? Do not tub bath or submerge in water for three days. ?? Limit your activity for the rest of the day. Nutritional tips ?? Eat small, frequent and protein rich meals throughout the day (every 2 ? 4 hours) ? Limit added salt and high sodium foods ? Avoid alcohol When to get help ?Go to the ER if you have any of the following: ?? Fever above 100.4 ?F (38.0 ?C) ? Bleeding from the puncture site ?? Difficulty breathing ? Increased pain, redness, or swelling at the puncture site ?? Unable to produce urine Activity:: see above Remove Dressings/Wound Care:: 24 hours Shower/Bathe:: 24 hours Diet:: see above Discharge Orders Discharge Orders: Discharge Order (Routine); Ordered 05/03/23 Ordered By: Amisha Barbosa DS: Diagnosis Discharge Diagnosis (1) Insomnia, psychophysiological: Status: Chronic (2) GERD (gastroesophageal reflux disease): Status: Chronic (3) Generalized anxiety disorder: Status: Chronic (4) Erectile dysfunction: Status: Chronic (5) End stage liver disease: Status: Chronic (6) Ascites due to alcoholic cirrhosis: Status: Chronic (7) ETOH abuse: Status: Chronic (8) Cirrhosis: Status: Acute
[2023-05-03 15:02] VITALS: BP 131/89; PULSE 106; RESP 22; TEMP 36.4; O2SAT 99
[2023-05-03] MEDS: Ondansetron 4 MG/2 ML VIAL IVP (15:08)
[2023-05-03] MEDS: Lidocaine 1.5 % Pres-Free W/EPI 1/200,000 30 ML VIAL (15:26)
[2023-05-03 15:55] VITALS: BP 129/86; PULSE 87; RESP 18; TEMP 36.4; O2SAT 97
--- NOTE | 2023-05-03 16:01 | W.PM.OP ---
Date of service: 05/03/23 Time of Service: 16:01 Operative Note Operative Note DATE OF PROCEDURE: 05/03/23 PRE-OP DIAGNOSIS: end stage liver Dx/etoh abuse/cirrhosis w/ ascites POST-OP DIAGNOSIS: same PROCEDURE: Paracentesis SURGEON: Amisha Barbosa ANESTHESIA TYPE: Local By Surgeon Refer to Anesthesia Record ESTIMATED BLOOD LOSS: 1 PATHOLOGY: none sent COMPLICATIONS: None Patient was transported to: same day Patient's condition: stable Procedure Description: Informed consent is obtained, explaining benefits and risks of the procedure including but not limited to: bleeding/infections/damage to bowels or blood vessels/chronic drainage or leakage/need for repeat procedure/reactions to anesthetics.?? The patient is brought to the procedure room and placed in the supine position.?? A time-out is done.? Ultrasound is used to localize the pocket of fluid.? The area is prepped and draped in the usual sterile fashion using a ChloraPrep scrub solution.? 10 cc's of 1% Lidocaine with epinephrine is used for local anesthetization.? The abdomen is punctured and the catheter is inserted.?9100 liters of light yellow fluid is evacuated today.? The catheter is removed.? Pressure dressing is applied.? The patient tolerated the procedure well without complication and transferred to recovery in stable condition for post-procedure albumin?
[2023-05-03] MEDS: ALBUMIN HUMAN 25 GM/100 ML BTL IVPB ×2 (16:04→16:44)
[2023-05-03 16:25] LABS: Abs Immature Grans 0.03 10^3/uL (0.0-0.06); Absolute Basophil Count 0.11 10^3/uL (0.0-0.2); Absolute Eosinophil Count 0.16 10^3/uL (0.0-0.7); Absolute Lymphocyte Count 1.23 10^3/uL (1.2-3.4); Absolute Monocyte Count 0.83 10^3/uL (0.1-0.8); Absolute Neutrophil Count 7.79 10^3/uL (1.2-6.7); Basophils % 1.1; Eosinophils % 1.6; HCT 43.4 % (40.0-50.0); HGB 14.3 g/dL (13.5-17.5); Immature Grans % 0.3; Lymphocytes % 12.1; MCH 30.4 pg (27.0-33.0); MCHC 32.9 % (32.0-36.0); MCV 92 fL (80-95); MPV 9.5 fL (8.0-11.0); Monocytes % 8.2; Neutrophils % 76.7; Platelet Count 187 10^3/uL (130-400); RDW 17.1 % (11.8-14.1); RDW-SD 58.1 fL; WBC 10.15 10^3/uL (4.4-10.8)
[2023-05-03 16:36] LABS: Ammonia 96 umol/L (11-32); INR 1.6 (0.9-1.1); Prothrombin Time 15.5 sec (9.1-11.1)
[2023-05-03 16:41] LABS: ALT 34 U/L (16-63); AST 118 U/L (15-37); Albumin 2.5 g/dL (3.4-5.0); Alkaline Phosphatase 195 U/L (46-116); Anion Gap 9.6 mmol/L (3-11); BUN 14 mg/dL (7-18); Bilirubin, Total 2.7 mg/dL (0.2-1.0); CO2 22.4 mmol/L (21.0-32.0); CREATININE 1.4 mg/dL (0.70-1.30); Calcium 8.9 mg/dL (8.5-10.1); Chloride 104 mmol/L (98-107); GGT 317 U/L (15-85); Glucose 134 mg/dL (74-106); Magnesium 2.2 mg/dL (1.8-2.4); Potassium 3.1 mmol/L (3.5-5.1); Sodium 136 mmol/L (136-145); Total Protein 7.6 g/dL (6.4-8.2)
--- NOTE | 2023-05-03 16:51 | W.PM.DSUDISC ---
Date of service: 05/03/23 Time of Service: 16:53 Discharge Plan Disposition Patient Disposition: Home Condition: Fair Discharge Details Reason For Visit: Paracentisicis Attending Provider: Amisha Barbosa Primary Care Provider: Kushal Salgado Home Meds and New Rx's Prescriptions: New prochlorperazine maleate [Compazine] 5 mg tablet 5 mg PO TID PRNQty: 30 0RF Continued lactulose [Constulose] 10 gram/15 mL solution 15 ml PO BID Patient Comments: If had 3 to 4 BMs daily, okay to hold second dose per day. escitalopram oxalate 20 mg tablet 20 mg PO DAILY Qty: 90 3RF midodrine 5 mg tablet 10 mg PO TID hydroxyzine pamoate 50 mg capsule 50 mg PO BID omeprazole 40 mg capsule,delayed release(DR/EC) 40 mg PO DAILY amiloride 5 mg tablet 10 mg PO DAILY bumetanide 0.5 mg Tablet 0.5 mg PO DAILY acamprosate 333 mg tablet,delayed release (DR/EC) 666 mg PO TID Hold Instructions: Holding Xifaxan 550 mg tablet 550 mg PO BID magnesium gluconate 27.5 mg magne- sium (500 mg) tablet 27.5 mg PO DAILY Qty: 30 0RF Discharge Instructions Additional Instructions: A paracentesis is a procedure to remove extra fluid from your belly (abdomen). This fluid buildup in the abdomen is called ascites. This fluid may be removed to decrease abdominal pressure or to examine the fluid in the laboratory. Fluid buildup in your abdomen can sometimes cause problems with your bowels and breathing if it is not removed. What should I expect after the paracentesis? Talk W/ Kushal Salgado about Naltrexone You might notice there is less tightness around your abdomen. You will be able to breathe better, which should help you feel more comfortable. How do I care for myself at home? ?? If you have pain after the procedure, your primary care provider can prescribe or recommend appropriate medications. ? It is normal for a small amount of fluid to leak from the puncture site. Keep the area dry and covered to prevent infection. ?? After 24 hours, you can remove your bandage and shower. You can wash the needle site gently with soap and warm water. ? Do not tub bath or submerge in water for three days. ?? Limit your activity for the rest of the day. Nutritional tips ?? Eat small, frequent and protein rich meals throughout the day (every 2 ? 4 hours) ? Limit added salt and high sodium foods ? Avoid alcohol When to get help ?Go to the ER if you have any of the following: ?? Fever above 100.4 ?F (38.0 ?C) ? Bleeding from the puncture site ?? Difficulty breathing ? Increased pain, redness, or swelling at the puncture site ?? Unable to produce urine Activity:: see above Remove Dressings/Wound Care:: 24 hours Shower/Bathe:: 24 hours Diet:: see above Discharge Orders Discharge Orders: Discharge Order (Routine); Ordered 05/03/23 Ordered By: Amisha Barbosa DS: Diagnosis Discharge Diagnosis (1) Insomnia, psychophysiological: Status: Chronic (2) GERD (gastroesophageal reflux disease): Status: Chronic (3) Generalized anxiety disorder: Status: Chronic (4) Erectile dysfunction: Status: Chronic (5) End stage liver disease: Status: Chronic (6) Ascites due to alcoholic cirrhosis: Status: Chronic (7) ETOH abuse: Status: Chronic (8) Cirrhosis: Status: Acute
[2023-05-03 17:02] VITALS: BP 124/81; PULSE 93; RESP 18; TEMP 36.6; O2SAT 97
[2023-05-03 17:07] LABS: Ferritin 76 ng/mL (26-388)
== END 2023-05-03 17:21 | disposition home or self-care (01) ==
PROVIDERS: PCP Nurse Practitioner Family; Visit Provider Surgery
PROC: 0W9G3ZZ Drainage of Peritoneal Cavity, Percutaneous Approach (ICD-10-PCS; CPT 49082; principal; 2023-05-03 13:45)
DX: K70.31 Alcoholic cirrhosis of liver with ascites (principal); F10.10 Alcohol abuse, uncomplicated
CPT/HCPCS: 49083; 80053; 96365; 96366; 82140; 82728; 82977; 83735; 85025; 85610; J2405

== ENCOUNTER 2023-05-10 05:39 | Inpatient (IN) | payer MEDICARE, SELFPAY ==
[2023-05-10] VITALS (94 sets, daily range): BP systolic 108–145; BP diastolic 74–100; PULSE 93–122; RESP 13–36; TEMP 36.6–37.4; O2SAT 91–100
--- NOTE | 2023-05-10 06:00 | DI.RAD_ITS ---
Exam(s) XR PORTABLE CHEST AP EXAM: XR PORTABLE CHEST AP CLINICAL HISTORY: cough, eval for pneumonia. TECHNIQUE: 2D digital imaging was performed. COMPARISON: No exams were available for comparison FINDINGS: Single AP portable view. Heart size is upper normal. The mediastinum is not widened. Lungs are clear. No infiltrates nor obvious pleural effusions. IMPRESSION: No acute pulmonary findings on this single AP portable view of the chest. DATA REPOSITORY: RADIATION DOSE DELIVERED:
--- NOTE | 2023-05-10 06:08 | W.ED.GENAD ---
Discharge Plan Disposition Patient Disposition: Admit to [facility] Condition: Improving Discharge Details Chief Complaint: ETOHWithdr Clinical Impression: Acute kidney injury, Alcohol withdrawal, Hypomagnesemia Primary Care Provider: Kushal Salgado ED Provider: Nicholas Bolton Home Meds and New Rx's Prescriptions: No Action lactulose [Constulose] 10 gram/15 mL solution 15 ml PO BID Patient Comments: If had 3 to 4 BMs daily, okay to hold second dose per day. escitalopram oxalate 20 mg tablet 20 mg PO DAILY Qty: 90 3RF prochlorperazine maleate 5 mg tablet See Rx Instructions .ROUTE .COMPLEX Qty: 30 0RF Dose Instruction: TAKE 1 TABLET BY MOUTH THREE TIMES DAILY NEEDED Rx Instructions: TAKE 1 TABLET BY MOUTH THREE TIMES DAILY NEEDED midodrine 5 mg tablet 10 mg PO TID hydroxyzine pamoate 50 mg capsule 50 mg PO BID omeprazole 40 mg capsule,delayed release(DR/EC) 40 mg PO DAILY amiloride 5 mg tablet 10 mg PO DAILY bumetanide 0.5 mg Tablet 0.5 mg PO DAILY acamprosate 333 mg tablet,delayed release (DR/EC) 666 mg PO TID Hold Instructions: Holding Xifaxan 550 mg tablet 550 mg PO BID magnesium gluconate 27.5 mg magne- sium (500 mg) tablet 27.5 mg PO DAILY Qty: 30 0RF Medical Decision Making This is a pleasant 52-year-old male with a past medical history of alcoholic cirrhosis, GERD, chronic alcohol abuse, who drinks 6 to 10 cups of vodka a day, into his been drinking more than normal over the last 90 days, presents today for withdrawals. Last drink was at 8 PM. Patient states that he does not want to be sleep to drinking anymore and is trying to get off. He states he currently feels quite tremulous, anxious, and jittery and uneasy. He does have an intermittent cough which makes him feel lightheaded when he coughs. He denies any chest pain or shortness of breath. He has required paracenteses in the past for his alcoholic cirrhosis. He denies any abdominal pain or diarrhea. No other drugs or illicit behaviors. No other complaints at this time. No other modifying factors. He denies any history of seizures secondary to withdrawals. He states that he has had severe withdrawal symptoms in the past. Exam demonstrates a somewhat nervous appearing male, notably tremulous. CIWA scores around 8-10. Vital signs demonstrate tachycardia with hypertension. We will rehydrate, treat with 4 of Ativan, start phenobarbital withdrawal protocol, evaluate for electrolyte abnormalities, monitor closely and reassess and treat for his alcohol withdrawal. 7:28 AM Patient is feeling much better after the phenobarb and Ativan. Patient is resting comfortably. He is easily arousable. He responds to all questions on reassessment. Laboratory work-up shows low magnesium, electrolytes stable, creatinine higher than normal suggesting mild acute kidney injury. Ammonia level is elevated at 75, TSH is high at 6 however free T4 is normal. Alcohol level is 0. We will give a gram of magnesium, as well as a banana bag. We will continue to gently hydrate. With the patient's symptomatology, history, and notable chronic alcohol use, I do feel that admission for continued management of his withdrawals is indicated. Patient agrees. Discussed the case with the hospitalist Dr. Collier, she agrees with the assessment and plan. I have extensively reviewed the treatment plan with the patient. I have addressed all patient concerns at this time. I have also discussed the plan with the admitting physician and they agree with the current assessment and plan and have agreed to assume responsibility for the patient. All parties demonstrate verbal understanding and agreement with our assessment and plan at this time. The documentation in this chart was dictated using [email or web address] dictation software. Please excuse any dictation errors. HPI General Date/Time Provider Initiated Documentation: 05/10/23 05:40. HPI Narrative: This is a pleasant 52-year-old male with a past medical history of alcoholic cirrhosis, GERD, chronic alcohol abuse, who drinks 6 to 10 cups of vodka a day, into his been drinking more than normal over the last 90 days, presents today for withdrawals. Last drink was at 8 PM. Patient states that he does not want to be sleep to drinking anymore and is trying to get off. He states he currently feels quite tremulous, anxious, and jittery and uneasy. He does have an intermittent cough which makes him feel lightheaded when he coughs. He denies any chest pain or shortness of breath. He has required paracenteses in the past for his alcoholic cirrhosis. He denies any abdominal pain or diarrhea. No other drugs or illicit behaviors. No other complaints at this time. No other modifying factors. He denies any history of seizures secondary to withdrawals. He states that he has had severe withdrawal symptoms in the past. Related Data Home Medications Medication Instructions Recorded Confirmed acamprosate 333 mg tablet,delayed 666 mg PO TID 01/18/23 05/03/23 release amiloride 5 mg tablet 10 mg PO DAILY 01/18/23 05/03/23 bumetanide 0.5 mg tablet 0.5 mg PO DAILY 01/18/23 05/03/23 hydroxyzine pamoate 50 mg capsule 50 mg PO BID 01/18/23 05/03/23 midodrine 5 mg tablet 10 mg PO TID 01/18/23 05/03/23 omeprazole 40 mg capsule,delayed 40 mg PO DAILY 01/18/23 05/03/23 release rifaximin 550 mg tablet (Xifaxan) 550 mg PO BID 01/18/23 05/03/23 magnesium gluconate 27.5 mg 27.5 mg PO DAILY #30 tabs 02/26/23 05/03/23 magnesium (500 mg) tablet lactulose 10 gram/15 mL oral 15 ml PO BID 03/28/23 05/03/23 solution (Constulose) escitalopram oxalate 20 mg tablet 20 mg PO DAILY #90 tabs 04/03/23 05/03/23 prochlorperazine maleate 5 mg See Rx Instructions .Route 05/10/23 tablet .COMPLEX #30 tabs Previous Rx's Medication Instructions Recorded magnesium gluconate 27.5 mg 27.5 mg PO DAILY #30 tabs 02/26/23 magnesium (500 mg) tablet escitalopram oxalate 20 mg tablet 20 mg PO DAILY #90 tabs 04/03/23 prochlorperazine maleate 5 mg See Rx Instructions .Route 05/10/23 tablet .COMPLEX #30 tabs Allergies Allergy/AdvReac Type Severity Reaction Status Date / Time No Known Allergies Allergy Verified 05/10/23 06:40 General Stated Complaint: ETOHWithdr YOLANDA: 2 Review of Systems All systems reviewed & are unremarkable except as noted in HPI and below PFSH All Active Problems (Updated 05/10/23 @ 07:31 by Nicholas Bolton DO) Hypomagnesemia (Acute) Alcohol withdrawal (Acute) Acute kidney injury (Acute) Alcoholic cirrhosis of liver with ascites (Acute) Chronic liver failure without hepatic coma (Acute) Insomnia, psychophysiological (Chronic) GERD (gastroesophageal reflux disease) (Chronic) Generalized anxiety disorder (Chronic) Erectile dysfunction (Chronic) Chronic cough (Acute) Homeless single person (Acute) End stage liver disease (Chronic) Ascites due to alcoholic cirrhosis (Chronic) ETOH abuse (Chronic) Cirrhosis (Acute) Advanced care planning/counseling discussion (Acute) Hypokalemia (Acute) Medical History Major depression Medication monitoring encounter Palliative care encounter Anxiety and depression Itching Chronic GERD HTN (hypertension) Surgical History S/P abdominal paracentesis (~04/2023) 9th paracentesis History of esophagogastroduodenoscopy (EGD) Family History Father Cirrhosis Mother No problems noted. Other GERD (gastroesophageal reflux disease) Social History Smoking/Tobacco Use Status: Current every day Tobacco Type: cigarettes Quit status: has quit before Second Hand Exposure: Yes Smoking risk assessment performed?: Yes Alcohol Intake: current Alcohol Intake frequency: 3 or more drinks per day Alcohol type: hard liquor Drug use: Never Substance use type: does not use Caregiver/Support person: No Household members: none Housing: other Pets and animals: No Sexually active: No How often do you talk on the phone with friends or family?: twice per week How often do you get together with friends or relatives?: once per week How often do you attend orthodoxy or buddhist services?: decline to answer Do you belong to any clubs or organized social groups?: no Panel score (0-1 are the most socially isolated patients): 1 What type of physical activity do you participate in: none Pat/Restorationist: None Seatbelt use: always Helmet use: Yes Drive intox or ride w/intox operator and truck driver: No Do you feel safe at home: Yes Additional Social history: lives alone, camping RV Exam Narrative Exam Narrative: 1.Const: Well-nourished, Well-developed, appearing stated age 2.Eyes: PERRL, no conjunctival injection, and symmetrical lids. 3.ENT: Atraumatic external nose and ears. Moist MM. Neck: Symmetric, trachea midline, No thyromegaly. 4.CVS: +S1/S2, No murmurs or gallops. Peripheral pulses 2+ and equal in all extremities. Brisk capillary refill in all extremities. 5.RESP: Unlabored respiratory effort. Clear to auscultation bilaterally. No wheezes rales or rhonchi 6.GI: Soft, Nontender/Nondistended, No hepatosplenomegaly. No guarding or rebound. Mild ascites is noted. 7.MSK: Normocephalic/Atraumatic, Extremities w/o deformity or ttp No cyanosis or clubbing, Normal movement of all extremities 8.Skin: Warm, Dry. No rashes or lesions. 9.Neuro: antenna specialist II-XII grossly intact. Sensation grossly intact, no focal neurologic deficits. Notably tremulous. No asterixis 10.Psych: (AAO) x3. Quite nervous and jittery appearing Course Vital Signs Vital signs: Vital Signs Temperature 36.6 C 05/10/23 05:48 Pulse 120 H 05/10/23 05:48 Respiratory Rate 24 05/10/23 05:48 Blood Pressure 139/100 H 05/10/23 05:48 Pulse Oximetry 100 05/10/23 05:48 Temperature 36.6 C 05/10/23 05:48 Temperature Source Oral 05/10/23 05:48 Pulse 120 H 05/10/23 05:48 Respiratory Rate 24 05/10/23 05:48 Respiratory Effort Normal 05/10/23 05:55 Respiratory Pattern Normal 05/10/23 05:55 Blood Pressure 139/100 H 05/10/23 05:48 Pulse Oximetry 100 05/10/23 05:48 Oxygen Delivery Method Room Air 05/10/23 05:48 Oxygen Flow Rate 0 05/10/23 05:48 Pain Level 8 05/10/23 05:48 Critical Care Time Critical Care Time Critical Care Time: Yes Total Critical Care Time: 30 Attestation: Upon my evaluation, this patient had a high probability of imminent or life-threatening deterioration, which required my direct attention, intervention, and personal management. I have personally provided 30 minutes of critical care time exclusive of time spent on separately billable procedures. Time includes review of laboratory data, radiology results, discussion with consultants, and monitoring for potential decompensation. Interventions were performed as documented. PAWSS Have you Been Recently Intoxicated or Drunk Within the Last 30 days?: Yes Have you Ever Experienced Previous Episodes of Alcohol Withdrawal?: Yes Have you ever Experienced Withdrawal Seizures?: No Have you ever Experienced Delirium Tremens(DT)s?: Yes Have you ever undergone Alcohol Rehabilitation Treatment (i.e, inpt ot outpatient treatment programs)?: Yes Have you ever Experienced Blackouts?: Yes Have you ever Combined Alcohol with other Downers within the last 90 days?: No Have you ever Combined Alcohol with any other Substance of Abuse during the last 90 days?: No Positive Blood Alcohol level on Presentation? [PCS.BAL]: Unable to Obtain Evidence of Increased Autonomic Activity (i.e. HR>120, tremor, sweating, agitation, nausea)?: Yes Result: 6
[2023-05-10] MEDS: LORazepam 2 MG/ML VIAL 4 MG IVP (06:09)
[2023-05-10] MEDS: Normal Saline 1,000 ML 1000 ML IV (06:09)
[2023-05-10] MEDS: PHENobarbital 180 MG in Normal Saline 50 ML 100 MG IVPB (06:22)
[2023-05-10 06:35] LABS: BE (Venous) -5 mmol/L (-2-3); HCO3 (Venous) 19 mmol/L (23-28); O2 Sat (Venous) 72 %; TCO2 (Venous) 17 mmol/L (24-29); pCO2 (Venous) 26 mmHg (41-51); pH (Venous) 7.47 (7.31-7.41); pO2 (Venous) 38 mmHg
[2023-05-10 06:36] LABS: Abs Immature Grans 0.04 10^3/uL (0.0-0.06); Absolute Basophil Count 0.08 10^3/uL (0.0-0.2); Absolute Eosinophil Count 0.03 10^3/uL (0.0-0.7); Absolute Lymphocyte Count 0.83 10^3/uL (1.2-3.4); Absolute Monocyte Count 0.72 10^3/uL (0.1-0.8); Absolute Neutrophil Count 9.03 10^3/uL (1.2-6.7); Basophils % 0.7; Eosinophils % 0.3; HCT 44.1 % (40.0-50.0); HGB 14.9 g/dL (13.5-17.5); Immature Grans % 0.4; Lymphocytes % 7.7; MCH 30.6 pg (27.0-33.0); MCHC 33.8 % (32.0-36.0); MCV 91 fL (80-95); MPV 9.9 fL (8.0-11.0); Monocytes % 6.7; Neutrophils % 84.2; Platelet Count 184 10^3/uL (130-400); RBC 4.87 10^6/uL (4.36-5.78); RDW 17.1 % (11.8-14.1); RDW-SD 56.3 fL; WBC 10.73 10^3/uL (4.4-10.8)
[2023-05-10 06:46] LABS: Ammonia 75 umol/L (11-32)
[2023-05-10 06:50] LABS: INR 1.7 (0.9-1.1); PTT Activated 28.1 sec (23.6-32.8); Prothrombin Time 16.7 sec (9.1-11.1)
[2023-05-10 07:09] LABS: ALT 49 U/L (16-63); AST 150 U/L (15-37); Albumin 2.7 g/dL (3.4-5.0); Alkaline Phosphatase 213 U/L (46-116); Anion Gap 13.6 mmol/L (3-11); BUN 20 mg/dL (7-18); Bilirubin, Total 3.6 mg/dL (0.2-1.0); CO2 19.4 mmol/L (21.0-32.0); CREATININE 1.9 mg/dL (0.70-1.30); Calcium 9.6 mg/dL (8.5-10.1); Chloride 98 mmol/L (98-107); Estimated GFR 41.66 (mL/min/1.73m2); Glucose 146 mg/dL (74-106); Lipase 88 U/L (16-77); Magnesium 1.6 mg/dL (1.8-2.4); Potassium 3.7 mmol/L (3.5-5.1); Sodium 131 mmol/L (136-145); Total Protein 7.8 g/dL (6.4-8.2)
[2023-05-10 07:11] LABS: ETHANOL BLOOD < 3.0 mg/dL (<10)
[2023-05-10 07:27] LABS: FREE T4 1.38 ng/dL (0.76-1.46)
[2023-05-10] MEDS: MAGNESIUM SULFATE 8.12 MEQ, MULTIVITAMIN 10 ML, THIAMINE 100 MG, FOLIC ACID 1 MG in Nor... 168.867 MG IV (08:19)
--- NOTE | 2023-05-10 08:23 | DI.VRAD_ITS ---
PROCEDURE INFORMATION: Exam: XR Chest Exam date and time: 05/10/2023 6:29 AM Age: 52 years old Clinical indication: Cough and other: Cough, eval for pneumonia TECHNIQUE Imaging protocol: Radiologic exam of the chest. Views: 1 view. COMPARISON: XR PORTABLE CHEST AP 01/18/2023 10:17 PM FINDINGS: Lungs: Unremarkable. No consolidation. Pleural spaces: Unremarkable. No pleural effusion. No pneumothorax. Heart/Mediastinum: Unremarkable. No cardiomegaly. Bones/joints: Unremarkable. IMPRESSION: No acute findings. Dictated and Authenticated by: Ankita Krueger MD. Ordering:MIRELLA Peterson MD
[2023-05-10] MEDS: MAGNESIUM SULFATE 1 GM/100 ML BAG IVPB (08:47)
[2023-05-10 09:05] LABS: COVID-19 PCR Negative (Negative); Influenza A PCR Negative (Negative); Influenza B PCR Negative (Negative); RSV PCR Negative (Negative)
[2023-05-10 09:15] LABS: Source Nasopharynx
--- NOTE | 2023-05-10 09:36 | W.PM.HP.N ---
Date of service: 05/10/23 Time of Service: 09:36 Assessment and Plan Assessment and plan (1) Alcohol withdrawal: Status: Acute Assessment and plan: Admit to the ICU on phenobarbital protocol. Monitor CIWA/RASS. Provide MVI, thiamine. Check B12/folate levels. (2) Alcoholic hepatitis with ascites: Status: Acute Assessment and plan: Discriminant function score of 29.8, so no role for steroids yet, but we will monitor his PT and Bilis as this may become necessary on this admission. (3) Alcoholic cirrhosis of liver with ascites: Status: Chronic Assessment and plan: Does have coagulopathy, h/o encephalopathy w/o active signs of this, ascites. Limit IVF. Monitor for bleeding - check hematest. I am holding his diuretics today given ESTRELLA. (4) Chronic liver failure without hepatic coma: Status: Chronic Assessment and plan: Provide a low sodium diet. As above. (5) Acute kidney injury: Status: Acute Assessment and plan: Check US renal. Hold diuretics for today. Check bladder scans (6) Hypomagnesemia: Status: Acute Assessment and plan: Repleted in the ED. Recheck in am. (7) Hyponatremia: Status: Acute Assessment and plan: Suspect this is due to cirrhosis/volume status. Will monitor. (8) DVT prophylaxis: Status: Acute Assessment and plan: SCDs. I am holding off on chemical DVT ppx since I am not sure about the status of varices. (9) Discharge planning issues: Status: Acute Assessment and plan: Full code Admit to the ICU. Total Critical Care Time 45 minutes. History of Present Illness History of Present Illness Chief Complaint: I'm tired of living like this! Narrative: Mr Chavez is a 52 year old male with PMHx of EtOH abuse and prior severe DTs (but no seizures), as well as h/o alcoholic cirrhosis with encephalopathy and ascites, requiring paracenthesis in the past, GERD, KAREEM, who presented to [facility] ED today with symptoms of alcohol withdrawal and reporting that he wants to stop drinking because he is tired of living like this. He drinks 6-10 cups of vodka daily. His last drink was 8 pm yesterday. No SI. The patient was tremulous, sweaty, was seeing halos, was tachycardic and hypertensive. On CIWA he had scored 8-12. He received 4 mg of IV lorazepam in the ED followed by phenobarbital 180 mg which successfully controlled the symptoms. Hospitalist admission was requested. The patient was noted to have a cough in the ED, had a negative FLUVID test and a negative CXR. Of note, the patient also has a h/o chronic cough documented in the chart. The patient is asleep when I came to wake him up. He did not initially wake up to verbal stimuli or sternal rub. He does wake up now, acknowledges my presence in the room, but falls asleep. He was not able to answer my questions. He is able to protect his airway so far and he is not requiring oxygen. Review of Systems Unobtainable due to mental status PFS All Active Problems (Updated 05/10/23 @ 09:48 by Leela Collier MD) Alcoholic hepatitis with ascites (Acute) Discharge planning issues (Acute) DVT prophylaxis (Acute) Hyponatremia (Acute) Hypomagnesemia (Acute) Alcohol withdrawal (Acute) Acute kidney injury (Acute) Alcoholic cirrhosis of liver with ascites (Chronic) Chronic liver failure without hepatic coma (Chronic) Insomnia, psychophysiological (Chronic) GERD (gastroesophageal reflux disease) (Chronic) Generalized anxiety disorder (Chronic) Erectile dysfunction (Chronic) Chronic cough (Acute) Homeless single person (Acute) End stage liver disease (Chronic) Ascites due to alcoholic cirrhosis (Chronic) ETOH abuse (Chronic) Cirrhosis (Acute) Advanced care planning/counseling discussion (Acute) Hypokalemia (Acute) Medical History Major depression Medication monitoring encounter Palliative care encounter Anxiety and depression Itching Chronic GERD HTN (hypertension) Surgical History S/P abdominal paracentesis (~04/2023) 9th paracentesis History of esophagogastroduodenoscopy (EGD) Family History Father Cirrhosis Mother No problems noted. Other GERD (gastroesophageal reflux disease) Social History Smoking/Tobacco Use Status: Current every day Tobacco Type: cigarettes Quit status: has quit before Second Hand Exposure: Yes Smoking risk assessment performed?: Yes Alcohol Intake: current Alcohol Intake frequency: 3 or more drinks per day Alcohol type: hard liquor Drug use: Never Substance use type: does not use Caregiver/Support person: No Household members: none Housing: other Pets and animals: No Sexually active: No How often do you talk on the phone with friends or family?: twice per week How often do you get together with friends or relatives?: once per week How often do you attend samaritan or taoist services?: decline to answer Do you belong to any clubs or organized social groups?: no Panel score (0-1 are the most socially isolated patients): 1 What type of physical activity do you participate in: none Pat/Pentecostal: None Seatbelt use: always Helmet use: Yes 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 Do you feel safe at home: Yes Additional Social history: lives alone, camping RV Meds Allergies and Home Medications Allergies Allergy/AdvReac Type Severity Reaction Status Date / Time No Known Allergies Allergy Verified 05/10/23 09:21 Home Medications Medication Instructions Recorded Confirmed Type acamprosate 333 mg tablet,delayed 666 mg PO TID 01/18/23 05/10/23 History release amiloride 5 mg tablet 10 mg PO DAILY 01/18/23 05/10/23 History bumetanide 0.5 mg tablet 0.5 mg PO DAILY 01/18/23 05/10/23 History hydroxyzine pamoate 50 mg capsule 50 mg PO BID 01/18/23 05/10/23 History midodrine 5 mg tablet 10 mg PO TID 01/18/23 05/10/23 History omeprazole 40 mg capsule,delayed 40 mg PO DAILY 01/18/23 05/10/23 History release rifaximin 550 mg tablet (Xifaxan) 550 mg PO BID 01/18/23 05/10/23 History magnesium gluconate 27.5 mg 27.5 mg PO DAILY #30 tabs 02/26/23 05/10/23 Rx magnesium (500 mg) tablet lactulose 10 gram/15 mL oral 15 ml PO BID 03/28/23 05/10/23 History solution (Constulose) escitalopram oxalate 20 mg tablet 20 mg PO DAILY #90 tabs 04/03/23 05/10/23 Rx prochlorperazine maleate 5 mg See Rx Instructions .Route 05/10/23 05/10/23 Rx tablet .COMPLEX #30 tabs Exam Narrative Exam Narrative: General: middle-aged male who is asleep and snoring, lethargic, A&Ox1, falls asleep very quickly - not sustaining wakefullness for even a minute Neurological: unable to perform a full examination due to mental status (lethargic). Appears to be able to move move all 4 extremities. Psychiatric: unable to assess due to mental status Skin: Visible skin mildly jaundiced; B feet dirty. HEENT: Atraumatic, normocephalic, EOMI, MMM, clear oropharynx, no submandibular or cervical lymphadenopathy, no goiter or JVD Cardiovascular: RRR, mildly tachycardic, no m/r/g Lungs: rhonchi anteriorly B Gastrointestinal: soft, nontender, nondistended Genitourinary: deferred Extremities: no edema BLEs, B feet dirty, + 1 pedal pulse B, no c/c. Results Imaging Imaging Studies: CXR: No acute pulmonary findings on this single AP portable view of the chest. Labs 05/10/23 06:20 05/10/23 06:20 Labs: Laboratory Results - last 24 hr 05/10/23 05/10/23 05/10/23 06:20 07:09 08:06 WBC 10.73 RBC 4.87 Hgb 14.9 Hct 44.1 MCV 91 MCH 30.6 MCHC 33.8 RDW 17.1 H Plt Count 184 MPV 9.9 Immature Gran % 0.4 Neutrophils % 84.2 Lymphocytes % 7.7 Monocytes % 6.7 Eosinophils % 0.3 Basophils % 0.7 Nucleated RBC % 0.0 Absolute Neutrophils 9.03 H Absolute Lymphocytes 0.83 L Absolute Monocytes 0.72 Absolute Eosinophils 0.03 Absolute Basophils 0.08 PT 16.7 H INR 1.7 H APTT 28.1 VBG pH 7.47 H VBG pCO2 26 L VBG pO2 38 VBG HCO3 19 L VBG Total CO2 17 L VBG O2 Saturation 72 VBG Base Excess -5 L Sodium 131 L Potassium 3.7 Chloride 98 Carbon Dioxide 19.4 L Anion Gap 13.6 H BUN 20 H Creatinine 1.9 H Est GFR (CKD-EPI 2020) 41.66 Glucose 146 H Calcium 9.6 Magnesium 1.6 L Cancelled Total Bilirubin 3.6 H AST 150 H ALT 49 Alkaline Phosphatase 213 H Ammonia 75 H Total Protein 7.8 Albumin 2.7 L Lipase 88 H TSH 6.00 H Free T4 1.38 Ethyl Alcohol < 3.0 COVID-19 Source Nasopharynx SARS-CoV-2 (PCR) Negative Influenza Type A (PCR) Negative Influenza Type B (PCR) Negative RSV (PCR) Negative Last Vital Signs Temp 36.6 C 05/10/23 05:48 Pulse 110 H 05/10/23 08:45 Resp 28 H 05/10/23 08:45 BP 115/82 05/10/23 08:45 Pulse Ox 92 05/10/23 08:45 PAWSS Have you Been Recently Intoxicated or Drunk Within the Last 30 days?: Yes Have you Ever Experienced Previous Episodes of Alcohol Withdrawal?: Yes Have you ever Experienced Withdrawal Seizures?: No Have you ever Experienced Delirium Tremens(DT)s?: Yes Have you ever undergone Alcohol Rehabilitation Treatment (i.e, inpt ot outpatient treatment programs)?: Yes Have you ever Experienced Blackouts?: Yes Have you ever Combined Alcohol with other Downers within the last 90 days?: No Have you ever Combined Alcohol with any other Substance of Abuse during the last 90 days?: No Positive Blood Alcohol level on Presentation? [PCS.BAL]: Unable to Obtain Evidence of Increased Autonomic Activity (i.e. HR>120, tremor, sweating, agitation, nausea)?: Yes Result: 6 Time Spent Time spent with Patient: 40-54 minutes Time was spent: preparing to see the patient(eg.review tests), obtaining and/or reviewing separately otained hiistory, ordering medications,tests, procedures, referring, communicating with other health childbirth and infant care teacher, indepentently interpreting results, counseling the patient and care coordination
--- NOTE | 2023-05-10 09:46 | W.PC.ACHO ---
Registration Status: REG ER Primary Language: Preferred Language: ED Information & Data Chief Complaint ETOHWithdr 05/10/23 06:10 Triage Note PT states he has been 05/10/23 05:48 drinking ETOH for 3 months. PT states that he has been having withdraw symptoms. PT has tremors and is anxious. PT states that his last drink was 1999 yesterday Medical / Surgical History (Last Reviewed 05/10/23 @ 06:11 by Nicholas Bolton DO) Major depression Medication monitoring encounter Palliative care encounter Anxiety and depression Itching Chronic GERD HTN (hypertension) (Last Reviewed 05/10/23 @ 06:11 by Nicholas Bolton DO) S/P abdominal paracentesis (~04/2023) History of esophagogastroduodenoscopy (EGD) Most Recent Vital Signs Temperature 36.6 C 05/10/23 05:48 Temperature Source Oral 05/10/23 05:48 Pulse 110 H 05/10/23 08:45 Pulse 111 H 05/10/23 08:45 Respiratory Rate 28 H 05/10/23 08:45 Respiratory Effort Normal 05/10/23 05:55 Respiratory Pattern Tachypnea 05/10/23 09:16 Blood Pressure 115/82 05/10/23 08:45 Blood Pressure Mean 91 05/10/23 08:45 Pulse Oximetry 92 05/10/23 08:45 Oxygen Delivery Method Room Air 05/10/23 07:29 Oxygen Flow Rate 0 05/10/23 07:29 Pain Level 8 05/10/23 05:48 Allergies No Known Allergies Allergy (Verified 05/10/23 09:21) Active Medications Generic Name Dose Route Start Last Admin Trade Name Rom PRN Reason Stop Dose Admin Magnesium Sulfate 8.12 meq/ 1,013.2 mls @ 168.867 mls/hr 05/10/23 07:09 05/10/23 08:19 Multivitamins 10 ml/ Thiamine IV 05/10/23 13:08 168.867 mls/hr HCl 100 mg/ Folic Acid 1 mg/ INFUSION ONE Administration Sodium Chloride IV IV Catheter Gauge [Antecubital 18 ] Diagnostics 05/10/23 05/10/23 05/10/23 Range/Units 08:06 07:09 06:20 WBC 10.73 (4.4-10.8) 10^3/uL RBC 4.87 (4.36-5.78) 10^6/uL Hgb 14.9 (13.5-17.5) g/dL Hct 44.1 (40.0-50.0) % MCV 91 (80-95) fL MCH 30.6 (27.0-33.0) pg MCHC 33.8 (32.0-36.0) % RDW 17.1 H (11.8-14.1) % Plt Count 184 (130-400) 10^3/uL MPV 9.9 (8.0-11.0) fL Immature Gran % 0.4 Neutrophils % 84.2 Lymphocytes % 7.7 Monocytes % 6.7 Eosinophils % 0.3 Basophils % 0.7 Nucleated RBC % 0.0 (0.0-0.3) % Absolute Neutrophils 9.03 H (1.2-6.7) 10^3/uL Absolute Lymphocytes 0.83 L (1.2-3.4) 10^3/uL Absolute Monocytes 0.72 (0.1-0.8) 10^3/uL Absolute Eosinophils 0.03 (0.0-0.7) 10^3/uL Absolute Basophils 0.08 (0.0-0.2) 10^3/uL PT 16.7 H (9.1-11.1) sec INR 1.7 H (0.9-1.1) APTT 28.1 (23.6-32.8) sec VBG pH 7.47 H (7.31-7.41) VBG pCO2 26 L (41-51) mmHg VBG pO2 38 mmHg VBG HCO3 19 L (23-28) mmol/L VBG Total CO2 17 L (24-29) mmol/L VBG O2 Saturation 72 % VBG Base Excess -5 L (-2-3) mmol/L Sodium 131 L (136-145) mmol/L Potassium 3.7 (3.5-5.1) mmol/L Chloride 98 (98-107) mmol/L Carbon Dioxide 19.4 L (21.0-32.0) mmol/L Anion Gap 13.6 H (3-11) mmol/L BUN 20 H (7-18) mg/dL Creatinine 1.9 H (0.70-1.30) mg/dL Est GFR (CKD-EPI 2020) 41.66 (mL/min/1.73m2) Glucose 146 H (74-106) mg/dL Calcium 9.6 (8.5-10.1) mg/dL Magnesium Cancelled 1.6 L (1.8-2.4) mg/dL Total Bilirubin 3.6 H (0.2-1.0) mg/dL AST 150 H (15-37) U/L ALT 49 (16-63) U/L Alkaline Phosphatase 213 H (46-116) U/L Ammonia 75 H (11-32) umol/L Total Protein 7.8 (6.4-8.2) g/dL Albumin 2.7 L (3.4-5.0) g/dL Lipase 88 H (16-77) U/L TSH 6.00 H (0.36-3.74) uIU/mL Free T4 1.38 (0.76-1.46) ng/dL Ethyl Alcohol < 3.0 (<10) mg/dL COVID-19 Source Nasopharynx SARS-CoV-2 (PCR) Negative (Negative) Influenza Type A (PCR) Negative (Negative) Influenza Type B (PCR) Negative (Negative) RSV (PCR) Negative (Negative) Intake and Output - 24 Hour Total 05/10/23 05:39 thru 05/10/23 07:32 Intake Total 1051.3846 Balance 1051.3846 Weight 83.915 kg Intake: IV 1051.3846 Falls Risk Assessment History of Falls Previous History 05/10/23 05:55 Contributing Factors Confusion 05/10/23 05:55 Ambulatory Aids Independent 05/10/23 05:55 Tubes/Lines None 05/10/23 05:55 Gait Evaluation No gait disturbance 05/10/23 05:55 Cognition No cognitive impairment 05/10/23 05:55 Fall Total Score 18 05/10/23 05:55 Level of Risk Standard/Low Risk 05/10/23 05:55 Problems (Last Reviewed 05/10/23 @ 06:11 by Nicholas Bolton DO) Hypomagnesemia (Acute) Alcohol withdrawal (Acute) Acute kidney injury (Acute) v v v v v v v v v Sending and/or Receiving Nurses: Please use comment section below to note any information pertinent to the patient hand-off not included above. Information / Comments: Report received from: Hermelinda Flower RN
--- NOTE | 2023-05-10 10:30 | RT.EKG_ITS ---
APPROVED REPORT Exam: Resting ECG Reason for Exam: tachycardia Patient Location: I HR:101 bpm ECG Measurements Heart Rate 101 AXIS OH 152 P 46 QRSd 88 QRS 68 QT 382 T 33 QTc 496 Conclusion Sinus tachycardia...rate> 99 Abnormal R-wave progression, early transition...QRS area>0 in V2
--- NOTE | 2023-05-10 11:30 | DI.US_ITS ---
Exam(s) US RENAL EXAM: US RENAL CLINICAL HISTORY: ESTRELLA TECHNIQUE: Ultrasound of both kidneys performed using standard protocol. COMPARISON: CR,XR XR PORTABLE CHEST AP from 05/10/2023 FINDINGS: There is prominent ascites noted. RIGHT KIDNEY: Measures 10.9 cm in length. No cysts evident. Normal cortical thickness and corticomedullary differen tiation .No solid masses No intrarenal calculi nor hydronephrosis. LEFT KIDNEY: Measures 11.1 cm in length. No cysts evident. Normal cortical thickness and corticomedullary differe ntiaion. No solids masses. No intrarenal calculi nor hydonephrosis. URINARY BLADDER: Prevoid volume is 147 cc Patient unable to void. No evidence of bladder mass nor diverticuli. Ureterovesical jets: Both were not visualized. IMPRESSION: 1. No significant focal ultrasound findings in the kidneys. Both kidneys exhibit normal size. No h ydronephrosis. 2. Ureterovesical jets were not identified in the urinary bladder. 3. There is abundant ascites noted. DATA REPOSITORY:
[2023-05-10 11:42] LABS: Lab Add On Test DONE
[2023-05-10 11:53] LABS: Acetaminophen < 2 ug/mL (10-30)
[2023-05-10] MEDS: PHENobarbital 140 MG in Normal Saline 50 ML 100 MG IVPB ×2 (13:33→16:47)
[2023-05-10] MEDS: Midodrine 2.5 MG TAB 10 MG PO ×2 (16:10→19:56)
[2023-05-10] MEDS: Lidocaine 2% Jelly 11 ML SYR UR ×2 (16:15→20:21)
[2023-05-10] MEDS: Normal Saline Flush 10 ML SYR IVP ×2 (16:15→22:21)
[2023-05-10] MEDS: hydrOXYzine PAMOATE 25 MG CAP 50 MG PO (19:55)
[2023-05-10] MEDS: Rifaximin 550 MG TAB PO (19:56)
[2023-05-10] MEDS: Lactulose 20 GM/30 ML CUP 10 GM PO (19:56)
[2023-05-10 20:26] LABS: Bilirubin Moderate (Negative); Blood Large (Negative); Glucose Negative (Negative); Ketones Trace mg/dL (Negative); Leukocyte Esterase Negative (Negative); Nitrite Positive (Negative); Specific Gravity >= 1.030 (1.005-1.025); Urobilinogen 0.2 mg/dL (Up to 0.2)
[2023-05-10 20:37] LABS: Bacteria Rare HPF (Negative); Casts 3-5 Hyaline LPF (Negative); Clarity Cloudy (Clear); Crystals Few Calcium Oxalate HPF (Negative); Epithelial Cells Rare HPF (Negative); Mucus Heavy (Negative); RBC >50 HPF (0-2)
[2023-05-10 20:38] LABS: C & S Indicated? Yes
[2023-05-10 20:39] LABS: WBC 0-2 HPF (0-5)
[2023-05-10] MEDS: PHENobarbital 130 MG/ML VIAL IVP (22:19)
[2023-05-11] VITALS (70 sets, daily range): BP systolic 98–128; BP diastolic 8–89; PULSE 77–968; RESP 15–36; TEMP 36–36.9; O2SAT 91–96
[2023-05-11] MEDS: Normal Saline Flush 10 ML SYR IVP ×3 (02:03→22:21)
[2023-05-11] MEDS: PHENobarbital 130 MG/ML VIAL IVP ×3 (02:12→22:21)
[2023-05-11 05:48] LABS: Abs Immature Grans 0.02 10^3/uL (0.0-0.06); Absolute Basophil Count 0.06 10^3/uL (0.0-0.2); Absolute Eosinophil Count 0.12 10^3/uL (0.0-0.7); Absolute Lymphocyte Count 1.08 10^3/uL (1.2-3.4); Absolute Monocyte Count 0.78 10^3/uL (0.1-0.8); Absolute Neutrophil Count 6.59 10^3/uL (1.2-6.7); Basophils % 0.7; Eosinophils % 1.4; HCT 36.9 % (40.0-50.0); HGB 12.3 g/dL (13.5-17.5); Immature Grans % 0.2; Lymphocytes % 12.5; MCH 30.8 pg (27.0-33.0); MCHC 33.3 % (32.0-36.0); MCV 92 fL (80-95); MPV 9.7 fL (8.0-11.0); Neutrophils % 76.2; Platelet Count 104 10^3/uL (130-400); RDW 17.2 % (11.8-14.1); RDW-SD 58.2 fL; WBC 8.65 10^3/uL (4.4-10.8)
[2023-05-11 05:56] LABS: Ammonia 45 umol/L (11-32)
[2023-05-11 06:00] LABS: Prothrombin Time 18.6 sec (9.1-11.1)
[2023-05-11 06:14] LABS: ALT 38 U/L (16-63); AST 100 U/L (15-37); Albumin 2.1 g/dL (3.4-5.0); Alkaline Phosphatase 173 U/L (46-116); Anion Gap 10.4 mmol/L (3-11); BUN 21 mg/dL (7-18); Bilirubin, Direct 1.8 mg/dL (0.0-0.2); Bilirubin, Total 3.4 mg/dL (0.2-1.0); CO2 18.6 mmol/L (21.0-32.0); Calcium 8.6 mg/dL (8.5-10.1); Chloride 102 mmol/L (98-107); Estimated GFR 39.17 (mL/min/1.73m2); Glucose 113 mg/dL (74-106); Magnesium 1.9 mg/dL (1.8-2.4); Potassium 3.4 mmol/L (3.5-5.1); Sodium 131 mmol/L (136-145); Total Protein 6.4 g/dL (6.4-8.2)
[2023-05-11 06:52] LABS: Folate 7.7 ng/mL (8.6-20.0); Vitamin B12 1406 pg/mL (193-986)
--- NOTE | 2023-05-11 07:01 | W.PC.ACHO ---
Registration Status: ADM IN Primary Language: Preferred Language: ED Information & Data Chief Complaint ETOHWithdr 05/10/23 06:10 Triage Note PT states he has been 05/10/23 05:48 drinking ETOH for 3 months. PT states that he has been having withdraw symptoms. PT has tremors and is anxious. PT states that his last drink was 1999 yesterday Medical / Surgical History (Last Reviewed 05/10/23 @ 06:11 by Nicholas Bolton DO) Major depression Medication monitoring encounter Palliative care encounter Anxiety and depression Itching Chronic GERD HTN (hypertension) (Last Updated 05/10/23 @ 13:34 by Tana Gillespie) S/P abdominal paracentesis (~04/2023) History of esophagogastroduodenoscopy (EGD) Most Recent Vital Signs Temperature 36.9 C 05/11/23 05:35 Temperature Source Temporal Artery Scan 05/11/23 03:54 Pulse 94 H 05/11/23 05:35 Pulse 93 H 05/11/23 05:50 Respiratory Rate 24 05/11/23 05:50 Respiratory Effort Normal, Non-Labored 05/11/23 03:54 Respiratory Depth Shallow 05/11/23 03:54 Respiratory Pattern Tachypnea 05/11/23 03:54 Blood Pressure 112/84 05/11/23 05:35 Blood Pressure Mean 94 05/11/23 05:35 Blood Pressure Position Supine 05/11/23 03:54 Pulse Oximetry 92 05/11/23 05:50 Oxygen Delivery Method Room Air 05/11/23 03:54 Oxygen Flow Rate 0 05/11/23 03:54 Pain Level 0 05/11/23 03:54 Allergies No Known Allergies Allergy (Verified 05/10/23 09:21) Active Medications Generic Name Dose Route Start Last Admin Trade Name Freq PRN Reason Stop Dose Admin Escitalopram Oxalate 20 mg 05/10/23 11:33 05/10/23 12:45 Escitalopram 20 Mg Tab PO Not Given DAILY CHANTE Folic Acid 1 mg 05/10/23 11:33 05/10/23 12:45 Folic Acid 1 Mg Tab PO 05/16/23 08:31 Not Given QAM CHANTE Hydroxyzine Pamoate 50 mg 05/10/23 13:00 05/10/23 19:55 Hydroxyzine Pamoate 25 Mg Cap PO 50 mg BID CHANTE Administration Lactulose 10 gm 05/10/23 13:00 05/10/23 19:56 Lactulose 20 Gm/30 Ml Cup PO 10 gm BID CHANTE Administration Magnesium Gluconate 500 mg 05/10/23 13:00 05/10/23 17:35 Magnesium Gluconate 500 Mg Tab PO Not Given DAILY CHANTE Midodrine 10 mg 05/10/23 14:00 05/10/23 19:56 Midodrine 2.5 Mg Tab PO 10 mg TID CHANTE Administration Multivitamins 1 tab 05/10/23 11:33 05/10/23 12:45 Multivitamin Tab PO 05/16/23 08:31 Not Given [facility] Omeprazole 40 mg 05/10/23 14:00 05/10/23 17:36 Omeprazole 20 Mg Capcr PO Not Given DAILY@0730 [facility] Phenobarbital Sodium 130 mg 05/10/23 11:33 05/11/23 02:12 Phenobarbital 130 Mg/Ml Vial IVP 130 mg DIRECTED PRN Administration for mild anxiety/agitation Rifaximin 550 mg 05/10/23 11:33 05/10/23 19:56 Rifaximin 550 Mg Tab PO 550 mg BID [facility] Administration Sodium Chloride 0 ml 05/10/23 11:33 05/11/23 02:03 Normal Saline Flush 10 Ml Syr IVP 10 ml PRN PRN Administration Thiamine HCl 100 mg 05/10/23 11:33 05/10/23 12:46 Thiamine 100 Mg Tab PO 05/16/23 08:31 Not Given [facility] IV IV Catheter Type [LWrist] Saline Lock IV Catheter Type [RAC] Saline Lock IV Catheter Gauge [LWrist] 20 IV Catheter Gauge [RAC] 20 IV Catheter Gauge [Antecubital 18 ] Diagnostics 05/11/23 05/10/23 05/10/23 Range/Units 05:38 20:15 08:06 WBC 8.65 (4.4-10.8) 10^3/uL RBC 4.00 L (4.36-5.78) 10^6/uL Hgb 12.3 L D (13.5-17.5) g/dL Hct 36.9 L (40.0-50.0) % MCV 92 (80-95) fL MCH 30.8 (27.0-33.0) pg MCHC 33.3 (32.0-36.0) % RDW 17.2 H (11.8-14.1) % Plt Count 104 L (130-400) 10^3/uL MPV 9.7 (8.0-11.0) fL Immature Gran % 0.2 Neutrophils % 76.2 Lymphocytes % 12.5 Monocytes % 9.0 Eosinophils % 1.4 Basophils % 0.7 Nucleated RBC % 0.0 (0.0-0.3) % Absolute Neutrophils 6.59 (1.2-6.7) 10^3/uL Absolute Lymphocytes 1.08 L (1.2-3.4) 10^3/uL Absolute Monocytes 0.78 (0.1-0.8) 10^3/uL Absolute Eosinophils 0.12 (0.0-0.7) 10^3/uL Absolute Basophils 0.06 (0.0-0.2) 10^3/uL PT 18.6 H (9.1-11.1) sec INR 2.0 H (0.9-1.1) APTT (23.6-32.8) sec Sodium 131 L (136-145) mmol/L Potassium 3.4 L (3.5-5.1) mmol/L Chloride 102 (98-107) mmol/L Carbon Dioxide 18.6 L (21.0-32.0) mmol/L Anion Gap 10.4 (3-11) mmol/L BUN 21 H (7-18) mg/dL Creatinine 2.0 H (0.70-1.30) mg/dL Est GFR (CKD-EPI 2020) 39.17 (mL/min/1.73m2) Glucose 113 H (74-106) mg/dL Calcium 8.6 (8.5-10.1) mg/dL Magnesium 1.9 (1.8-2.4) mg/dL Total Bilirubin 3.4 H (0.2-1.0) mg/dL Conjugated Bilirubin 1.8 H (0.0-0.2) mg/dL AST 100 H (15-37) U/L ALT 38 (16-63) U/L Alkaline Phosphatase 173 H (46-116) U/L Ammonia 45 H (11-32) umol/L Total Protein 6.4 (6.4-8.2) g/dL Albumin 2.1 L (3.4-5.0) g/dL Lipase (16-77) U/L Vitamin B12 Pending Folate Pending TSH (0.36-3.74) uIU/mL Free T4 (0.76-1.46) ng/dL Urine Color Dark Yellow (Yellow) Urine Clarity Cloudy (Clear) Urine pH 6.0 (5-8) Ur Specific [place] >= 1.030 H (1.005-1.025) Urine Protein 100 H (Negative) mg/dL Urine Ketones Trace H (Negative) mg/dL Urine Blood Large H (Negative) Urine Nitrite Positive H (Negative) Urine Bilirubin Moderate H (Negative) Urine Urobilinogen 0.2 (Up to 0.2) mg/dL Ur Leukocyte Esterase Negative (Negative) Urine RBC >50 H (0-2) HPF Urine WBC 0-2 (0-5) HPF Ur Epithelial Cells Rare (Negative) HPF Urine Crystals Few Calcium Oxalate (Negative) HPF Urine Bacteria Rare (Negative) HPF Urine Casts 3-5 Hyaline (Negative) LPF Urine Mucus Heavy (Negative) Ur Culture Indicated? Yes Urine Glucose Negative (Negative) mg/dL Acetaminophen (10-30) ug/mL Ethyl Alcohol (<10) mg/dL COVID-19 Source Nasopharynx SARS-CoV-2 (PCR) Negative (Negative) Influenza Type A (PCR) Negative (Negative) Influenza Type B (PCR) Negative (Negative) RSV (PCR) Negative (Negative) Add-On Test Request 05/10/23 05/10/23 Range/Units 07:09 06:20 WBC (4.4-10.8) 10^3/uL RBC (4.36-5.78) 10^6/uL Hgb (13.5-17.5) g/dL Hct (40.0-50.0) % MCV (80-95) fL MCH (27.0-33.0) pg MCHC (32.0-36.0) % RDW (11.8-14.1) % Plt Count (130-400) 10^3/uL MPV (8.0-11.0) fL Immature Gran % Neutrophils % Lymphocytes % Monocytes % Eosinophils % Basophils % Nucleated RBC % (0.0-0.3) % Absolute Neutrophils (1.2-6.7) 10^3/uL Absolute Lymphocytes (1.2-3.4) 10^3/uL Absolute Monocytes (0.1-0.8) 10^3/uL Absolute Eosinophils (0.0-0.7) 10^3/uL Absolute Basophils (0.0-0.2) 10^3/uL PT 16.7 H (9.1-11.1) sec INR 1.7 H (0.9-1.1) APTT 28.1 (23.6-32.8) sec Sodium 131 L (136-145) mmol/L Potassium 3.7 (3.5-5.1) mmol/L Chloride 98 (98-107) mmol/L Carbon Dioxide 19.4 L (21.0-32.0) mmol/L Anion Gap 13.6 H (3-11) mmol/L BUN 20 H (7-18) mg/dL Creatinine 1.9 H (0.70-1.30) mg/dL Est GFR (CKD-EPI 2020) 41.66 (mL/min/1.73m2) Glucose 146 H (74-106) mg/dL Calcium 9.6 (8.5-10.1) mg/dL Magnesium Cancelled 1.6 L (1.8-2.4) mg/dL Total Bilirubin 3.6 H (0.2-1.0) mg/dL Conjugated Bilirubin (0.0-0.2) mg/dL AST 150 H (15-37) U/L ALT 49 (16-63) U/L Alkaline Phosphatase 213 H (46-116) U/L Ammonia (11-32) umol/L Total Protein 7.8 (6.4-8.2) g/dL Albumin 2.7 L (3.4-5.0) g/dL Lipase 88 H (16-77) U/L Vitamin B12 Folate TSH 6.00 H (0.36-3.74) uIU/mL Free T4 1.38 (0.76-1.46) ng/dL Urine Color (Yellow) Urine Clarity (Clear) Urine pH (5-8) Ur Specific [place] (1.005-1.025) Urine Protein (Negative) mg/dL Urine Ketones (Negative) mg/dL Urine Blood (Negative) Urine Nitrite (Negative) Urine Bilirubin (Negative) Urine Urobilinogen (Up to 0.2) mg/dL Ur Leukocyte Esterase (Negative) Urine RBC (0-2) HPF Urine WBC (0-5) HPF Ur Epithelial Cells (Negative) HPF Urine Crystals (Negative) HPF Urine Bacteria (Negative) HPF Urine Casts (Negative) LPF Urine Mucus (Negative) Ur Culture Indicated? Urine Glucose (Negative) mg/dL Acetaminophen < 2 (10-30) ug/mL Ethyl Alcohol < 3.0 (<10) mg/dL COVID-19 Source SARS-CoV-2 (PCR) (Negative) Influenza Type A (PCR) (Negative) Influenza Type B (PCR) (Negative) RSV (PCR) (Negative) Add-On Test Request DONE 05/10/23 20:15 Urine Culture - Pending Urine - Reflex from Ua Intake and Output - 24 Hour Total 05/10/23 05:39 thru 05/11/23 06:15 Intake Total 3556.7384 Output Total 615 Balance 2941.7384 Weight 86.9 kg Intake: IV 2296.7384 Oral 1260 Output: Urine 225 Stool 390 Other: Urine Color Light Laura Ovett Urine Appearance Clear Comment Mixed with stool, See PVR. Did not place catheter secondary to earlier trauma. Stool Occult Blood Negative Stool Size Moderate Stool Characteristics Liquid Foamy Green Voiding Methods Bedside Commode Urinary Catheter Urinary Catheter Date of 05/10/23 Insertion [Coude] Time of insertion [Coude] 18:40 Falls Risk Assessment History of Falls Previous History 05/10/23 10:26 Contributing Factors Impairments,Medications 05/10/23 10:26 Ambulatory Aids Uses ambulatory device + 05/10/23 10:26 Tubes/Lines With any additional score 05/10/23 10:26 Gait Evaluation W/any additional score 05/10/23 10:26 Cognition No cognitive impairment 05/10/23 05:55 Fall Total Score 91 05/10/23 10:26 Level of Risk Maximum Risk 05/10/23 10:26 Problems (Last Reviewed 05/10/23 @ 06:11 by Nicholas Bolton DO) Alcoholic hepatitis with ascites (Acute) Discharge planning issues (Acute) DVT prophylaxis (Acute) Hyponatremia (Acute) Hypomagnesemia (Acute) Alcohol withdrawal (Acute) Acute kidney injury (Acute) Alcoholic cirrhosis of liver with ascites (Chronic) Chronic liver failure without hepatic coma (Chronic) v v v v v v v v v Sending and/or Receiving Nurses: Please use comment section below to note any information pertinent to the patient hand-off not included above. Information / Comments: Report received from: Timur Holley RN
[2023-05-11] MEDS: Rifaximin 550 MG TAB PO ×2 (09:00→22:22)
[2023-05-11] MEDS: Midodrine 2.5 MG TAB 10 MG PO ×3 (09:00→22:22)
[2023-05-11] MEDS: Thiamine 100 MG TAB PO (09:01)
[2023-05-11] MEDS: Lactulose 20 GM/30 ML CUP 10 GM PO (09:01)
[2023-05-11] MEDS: Multivitamin TAB 1 TAB PO (09:01)
[2023-05-11] MEDS: Omeprazole 20 MG CAPCR 40 MG PO (09:01)
[2023-05-11] MEDS: Escitalopram 20 MG TAB PO (09:01)
[2023-05-11] MEDS: hydrOXYzine PAMOATE 25 MG CAP 50 MG PO ×2 (09:01→22:22)
[2023-05-11] MEDS: Folic Acid 1 MG TAB PO (09:01)
[2023-05-11] MEDS: Magnesium Gluconate 500 MG TAB PO (09:01)
--- NOTE | 2023-05-11 09:51 | W.PM.PROGNOT ---
Date of Service Date of service: 05/11/23 Time of Service: 09:51 Assessment and Plan Assessment and plan (1) Alcohol withdrawal: Status: Acute Assessment and plan: Keep in the ICU today, primarily because so somnolent but does require intermittent phenobarbital, and I am concerned about respiratory depression, should he get more doses. Monitor CIWA/RASS. Provide MVI, thiamine. Replete folate. (2) Alcoholic hepatitis with ascites: Status: Acute Assessment and plan: Discriminant function score of 38.4. Start prednisolone. Give vitamin K given INR of 2.0 (3) Alcoholic cirrhosis of liver with ascites: Status: Chronic Assessment and plan: Does have coagulopathy, h/o encephalopathy w/o active signs of this, ascites. Limit IVF. Heme negative. Give vitamin K x1. General surgery consulted for paracenthesis which would not be happening today. I am holding his diuretics today given ESTRELLA. (4) Chronic liver failure without hepatic coma: Status: Chronic Assessment and plan: Provide a low sodium diet. As above. (5) Acute kidney injury: Status: Acute Assessment and plan: US renal negative yesterday, however is retaining urine right now. Will do intermittent caths. (6) Hypomagnesemia: Status: Acute Assessment and plan: Repleted in the ED. Recheck in am. (7) Hyponatremia: Status: Acute Assessment and plan: Suspect this is due to cirrhosis/volume status. Will monitor. (8) DVT prophylaxis: Status: Acute Assessment and plan: SCDs. I am holding off on chemical DVT ppx since I am not sure about the status of varices. (9) Discharge planning issues: Status: Acute Assessment and plan: Full code Keep in the ICU. Total Critical Care Time 40 minutes. Subjective Subjective Interval history since last seen: I feel like I just jumped off of a toña scraper. When I ask him what that means, he does not elaborate. He then requests something to drink. I told him how I would consulting general surgery for a paracenthesis today, and he asks Is it going to be Dr Latham? He then falls asleep and does not answer the rest of my questions. Discussed the case with Dr Latham who, given coagulopathy and nonemergency of the procedure, would like to hold off until tomorrow. Had a traumatic smith insertion yesterday evening. Since then, smith was removed. Unable to urinate, however. Urology informally recommended intermittent caths. Exam Narrative Exam Narrative: General: middle-aged male who is asleep, wakes up but quite lethargic. I thought his question re Dr Latham was reasonable. HEENT: EOMI, MMM Cardiovascular: RRR, mildly tachycardic, no m/r/g Lungs: rhonchi anteriorly B Gastrointestinal: Distended with ascites, but not tense. Genitourinary: No smith catheter at this time Extremities: no edema BLEs Objective Last Vital Signs Temp 36.9 C 05/11/23 05:35 Pulse 94 H 05/11/23 05:35 Resp 21 05/11/23 07:00 BP 112/84 05/11/23 05:35 Pulse Ox 93 05/11/23 07:00 Laboratory Results - last 24 hr 05/10/23 05/10/23 05/11/23 06:20 20:15 05:38 WBC 8.65 RBC 4.00 L Hgb 12.3 L D Hct 36.9 L MCV 92 MCH 30.8 MCHC 33.3 RDW 17.2 H Plt Count 104 L MPV 9.7 Immature Gran % 0.2 Neutrophils % 76.2 Lymphocytes % 12.5 Monocytes % 9.0 Eosinophils % 1.4 Basophils % 0.7 Nucleated RBC % 0.0 Absolute Neutrophils 6.59 Absolute Lymphocytes 1.08 L Absolute Monocytes 0.78 Absolute Eosinophils 0.12 Absolute Basophils 0.06 PT 18.6 H INR 2.0 H Sodium 131 L Potassium 3.4 L Chloride 102 Carbon Dioxide 18.6 L Anion Gap 10.4 BUN 21 H Creatinine 2.0 H Est GFR (CKD-EPI 2020) 39.17 Glucose 113 H Calcium 8.6 Magnesium 1.9 Total Bilirubin 3.4 H Conjugated Bilirubin 1.8 H AST 100 H ALT 38 Alkaline Phosphatase 173 H Ammonia 45 H Total Protein 6.4 Albumin 2.1 L Vitamin B12 1406 H Folate 7.7 L Urine Color Dark Yellow Urine Clarity Cloudy Urine pH 6.0 Ur Specific [place] >= 1.030 H Urine Protein 100 H Urine Ketones Trace H Urine Blood Large H Urine Nitrite Positive H Urine Bilirubin Moderate H Urine Urobilinogen 0.2 Ur Leukocyte Esterase Negative Urine RBC >50 H Urine WBC 0-2 Ur Epithelial Cells Rare Urine Crystals Few Calcium Oxalate Urine Bacteria Rare Urine Casts 3-5 Hyaline Urine Mucus Heavy Ur Culture Indicated? Yes Urine Glucose Negative Acetaminophen < 2 Add-On Test Request DONE PAWSS Have you Been Recently Intoxicated or Drunk Within the Last 30 days?: Yes Have you Ever Experienced Previous Episodes of Alcohol Withdrawal?: Yes Have you ever Experienced Withdrawal Seizures?: No Have you ever Experienced Delirium Tremens(DT)s?: Yes Have you ever undergone Alcohol Rehabilitation Treatment (i.e, inpt ot outpatient treatment programs)?: Yes Have you ever Experienced Blackouts?: Yes Have you ever Combined Alcohol with other Downers within the last 90 days?: No Have you ever Combined Alcohol with any other Substance of Abuse during the last 90 days?: No Positive Blood Alcohol level on Presentation? [PCS.BAL]: Unable to Obtain Evidence of Increased Autonomic Activity (i.e. HR>120, tremor, sweating, agitation, nausea)?: Yes Result: 6 Time Spent with Patient Time Spent with Patient: 35-49 minutes Time was spent: preparing to see the patient(eg.review tests), obtaining and/or reviewing separately otained hiistory, ordering medications,tests, procedures, referring, communicating with other health medicare compliance auditor, indepentently interpreting results, counseling the patient and care coordination
--- NOTE | 2023-05-11 09:54 | INITIAL_ITS ---
Date of service: 05/11/23 Time of Service: 09:54 Care Management Initial Assmt Initial Assessment REASON FOR HOSPITALIZATION:: Alcohol withdrawal; alcoholic hepatitis PREVIOUS FUNCTIONAL STATUS/SOCIAL/FAMILY SUPPORTS:: Go lives in [place], and reports that he is currently camping. He is originally from [place], but moved to [place] to take care of his elderly mother. She recently was placed in a shelter, so he returned to [place], about three months ago. He is independent at baseline with ADLs. CURRENT FUNCTIONAL STATUS:: Go was sleeping when CM attempted to meet with him. Per report, he has been somnolent today, and has required intermittent phenobarbital. Per MD, he may require a paracentesis on this admission, but he is not medically stable enough for it today. He remains at ICU level of care. CM will continue to follow. ADVANCE DIRECTIVES:: On file; Nancy (mother) listed as HCA. Has patient been provided with info about the portal/API?: Yes Did the patient sign up for the portal?: Yes CODE STATUS:: Full Code INSURANCE COVERAGE / FINANCIAL ISSUES:: [employer] M[employer] replacement CURRENT HOME/COMMUNITY SERVICES/EQUIPMENT:: Go has been working with [employer]; referral sent to [facility] for housing/food resources. PRIMARY CARE PHYSICIAN:: Kushal Salgado POTENTIAL DISCHARGE NEEDS:: Evaluations for further needs, follow up appointments. PATIENT/FAMILY EDUCATION NEEDS:: Review discharge instructions and limitations, discussion of self care needs including ask me three. ANTICIPATED BARRIERS TO DISCHARGE:: None identified. TRANSPORTATION:: Via private vehicle by a friend. PLAN:: Anticipate Go will return home once medically cleared. His friend will drive him home via private vehicle. He will follow up with his PCP and discharge plan of care. CM will continue to follow. [facility] All Active Problems (Updated 05/10/23 @ 09:48 by Leela Collier MD) Alcoholic hepatitis with ascites (Acute) Discharge planning issues (Acute) DVT prophylaxis (Acute) Hyponatremia (Acute) Hypomagnesemia (Acute) Alcohol withdrawal (Acute) Acute kidney injury (Acute) Alcoholic cirrhosis of liver with ascites (Chronic) Chronic liver failure without hepatic coma (Chronic) Insomnia, psychophysiological (Chronic) GERD (gastroesophageal reflux disease) (Chronic) Generalized anxiety disorder (Chronic) Erectile dysfunction (Chronic) Chronic cough (Acute) Homeless single person (Acute) End stage liver disease (Chronic) Ascites due to alcoholic cirrhosis (Chronic) ETOH abuse (Chronic) Cirrhosis (Acute) Advanced care planning/counseling discussion (Acute) Hypokalemia (Acute) Medical History (Updated 05/10/23 @ 09:48 by Leela Collier MD) Major depression Medication monitoring encounter Palliative care encounter Anxiety and depression Itching Chronic GERD HTN (hypertension) Surgical History (Updated 05/10/23 @ 13:34 by Tana Gillespie) S/P abdominal paracentesis (~04/2023) paracentesis History of esophagogastroduodenoscopy (EGD) Family History Father Cirrhosis Mother No problems noted. Other GERD (gastroesophageal reflux disease) Social History Smoking/Tobacco Use Status: Current every day Tobacco Type: cigarettes Quit status: has quit before Second Hand Exposure: Yes Smoking risk assessment performed?: Yes Alcohol Intake: current Alcohol Intake frequency: 3 or more drinks per day Alcohol type: hard liquor Drug use: Never Substance use type: does not use Caregiver/Support person: No Household members: none Housing: other Pets and animals: No Sexually active: No How often do you talk on the phone with friends or family?: twice per week How often do you get together with friends or relatives?: once per week How often do you attend presybeterian or jain services?: decline to answer Do you belong to any clubs or organized social groups?: no Panel score (0-1 are the most socially isolated patients): 1 What type of physical activity do you participate in: none Pat/Buddhism: None Seatbelt use: always Helmet use: Yes Drive intox or ride w/intox wedding transportation driver: No Do you feel safe at home: Yes Additional Social history: lives alone, camping RV
[2023-05-11] MEDS: prednisoLONE SOD PHOS. Soln. 3 MG/ML 40 MG PO (10:40)
[2023-05-11] MEDS: Phytonadione 5 MG TABLET 2.5 MG PO (10:43)
[2023-05-11] MEDS: Potassium Chloride 20 MEQ TABCR 40 MEQ PO (10:43)
[2023-05-11 12:18] LABS: HCT 37.3 % (40.0-50.0); HGB 12.5 g/dL (13.5-17.5)
[2023-05-11] MEDS: Acetaminophen 325 MG TAB 650 MG PO (22:22)
[2023-05-12] VITALS (28 sets, daily range): BP systolic 90–117; BP diastolic 51–79; PULSE 57–94; RESP 16–25; TEMP 36.5–36.6; O2SAT 92–95
[2023-05-12 06:47] LABS: Abs Immature Grans 0.07 10^3/uL (0.0-0.06); Absolute Basophil Count 0.02 10^3/uL (0.0-0.2); Absolute Lymphocyte Count 0.88 10^3/uL (1.2-3.4); Absolute Monocyte Count 0.78 10^3/uL (0.1-0.8); Basophils % 0.2; HCT 35.9 % (40.0-50.0); HGB 11.9 g/dL (13.5-17.5); Immature Grans % 0.6; Lymphocytes % 7.9; MCH 30.5 pg (27.0-33.0); MCHC 33.1 % (32.0-36.0); MCV 92 fL (80-95); MPV 9.6 fL (8.0-11.0); Neutrophils % 84.3; Platelet Count 108 10^3/uL (130-400); RDW-SD 57.7 fL; WBC 11.19 10^3/uL (4.4-10.8)
[2023-05-12 06:53] LABS: Absolute Neutrophil Count 9.43 10^3/uL (1.2-6.7)
[2023-05-12 07:06] LABS: Prothrombin Time 18.6 sec (9.1-11.1)
[2023-05-12 07:13] LABS: ALT 33 U/L (16-63); AST 82 U/L (15-37); Alkaline Phosphatase 159 U/L (46-116); Anion Gap 8.7 mmol/L (3-11); BUN 22 mg/dL (7-18); Bilirubin, Direct 1.4 mg/dL (0.0-0.2); Bilirubin, Total 2.5 mg/dL (0.2-1.0); CO2 20.3 mmol/L (21.0-32.0); CREATININE 1.9 mg/dL (0.70-1.30); Calcium 8.7 mg/dL (8.5-10.1); Chloride 103 mmol/L (98-107); Estimated GFR 41.66 (mL/min/1.73m2); Glucose 105 mg/dL (74-106); Magnesium 1.8 mg/dL (1.8-2.4); Potassium 3.6 mmol/L (3.5-5.1); Sodium 132 mmol/L (136-145); Total Protein 6.2 g/dL (6.4-8.2)
[2023-05-12 07:42] LABS: Lab Add On Test DONE
[2023-05-12 08:00] LABS: PHENOBARBITAL 11.4 ug/mL (15.0-40.0)
[2023-05-12] MEDS: Folic Acid 1 MG TAB PO (09:07)
[2023-05-12] MEDS: Rifaximin 550 MG TAB PO ×2 (09:07→21:40)
[2023-05-12] MEDS: prednisoLONE SOD PHOS. Soln. 3 MG/ML 40 MG PO (09:07)
[2023-05-12] MEDS: Escitalopram 20 MG TAB PO (09:07)
[2023-05-12] MEDS: Multivitamin TAB 1 TAB PO (09:07)
[2023-05-12] MEDS: Omeprazole 20 MG CAPCR 40 MG PO (09:07)
[2023-05-12] MEDS: Lactulose 20 GM/30 ML CUP 10 GM PO ×2 (09:07→21:39)
[2023-05-12] MEDS: Magnesium Gluconate 500 MG TAB PO (09:08)
[2023-05-12] MEDS: Midodrine 2.5 MG TAB 10 MG PO ×3 (09:08→21:40)
[2023-05-12] MEDS: Thiamine 100 MG TAB PO (09:08)
[2023-05-12] MEDS: hydrOXYzine PAMOATE 25 MG CAP 50 MG PO ×2 (09:08→21:40)
[2023-05-12] MEDS: Bumetanide 1 MG TAB 0.5 MG PO (11:17)
--- NOTE | 2023-05-12 12:35 | PGE_ITS ---
Date of Service Date of service: 05/12/23 Time of Service: 12:35 Assessment and Plan Assessment and plan (1) Alcohol withdrawal: Status: Acute Assessment and plan: Doing much better. Ok to transfer to medical surgical floor. Monitor CIWA/RASS. Continue MVI, thiamine. Replete folate. (2) Alcoholic hepatitis with ascites: Status: Acute Assessment and plan: Discriminant function score of 37.5, c/w poor prognosis. Consult palliative care. Continue prednisolone. Give vitamin K given INR of 2.0 yesterday; INR remains elevated. Hold off of paracenthesis today. (3) Alcoholic cirrhosis of liver with ascites: Status: Chronic Assessment and plan: Does have coagulopathy, h/o encephalopathy w/o active signs of this, ascites. Heme negative. S/p vitamin K x1 yestesrday. General surgery consulted for paracenthesis, but we are deferring this until INR is better. Resume diuretics. (4) Chronic liver failure without hepatic coma: Status: Chronic Assessment and plan: Provide a low sodium diet. As above. (5) Acute kidney injury: Status: Acute Assessment and plan: US renal negative. Able to void. Bladder scans overestimate his PVRs due to ascites. Resume diuretics and monitor Cr. I suspect Cr might actually improve. If worse tomorrow, consider hepatorenal syndrome. (6) Hypomagnesemia: Status: Resolved Assessment and plan: Recheck in am. (7) Hyponatremia: Status: Acute Assessment and plan: Sodium is a bit better. Suspect this is due to cirrhosis/volume status. Will monitor with resumption of diuresis. (8) DVT prophylaxis: Status: Acute Assessment and plan: SCDs. I am holding off on chemical DVT ppx since I am not sure about the status of varices. (9) Discharge planning issues: Status: Acute Assessment and plan: Full code Transfer out of the ICU. C/s palliative care. Subjective Subjective Interval history since last seen: Mr Chavez feels his abdomen is less tense today. He is ok with waiting to have it drained until tomorrow after I explained to him re his INR still being high. Denies dizziness, CP, SOB, n/v. Abdomen is not hurting. He feels he has been wheezy. He has been able to void. He is requesting his diuretics to be resumed. Exam Narrative Exam Narrative: General: middle-aged male who is asleep, wakes up easily, A&Ox3, asks appropriate questions HEENT: EOMI, MMM Cardiovascular: RRR, no m/r/g Lungs: rales at B bases Gastrointestinal: Distended with ascites, but not tense, does not appear changed Genitourinary: No smith catheter at this time Extremities: no edema BLEs Objective Last Vital Signs Temp 36.5 C 05/12/23 08:00 Pulse 82 05/12/23 10:43 Resp 22 05/12/23 10:43 BP 103/73 05/12/23 10:43 Pulse Ox 92 05/12/23 10:43 Laboratory Results - last 24 hr 05/12/23 05:30 WBC 11.19 H RBC 3.90 L Hgb 11.9 L Hct 35.9 L MCV 92 MCH 30.5 MCHC 33.1 RDW 17.0 H Plt Count 108 L MPV 9.6 Immature Gran % 0.6 Neutrophils % 84.3 Lymphocytes % 7.9 Monocytes % 7.0 Eosinophils % 0.0 Basophils % 0.2 Nucleated RBC % 0.0 Absolute Neutrophils 9.43 H Absolute Lymphocytes 0.88 L Absolute Monocytes 0.78 Absolute Eosinophils 0.00 Absolute Basophils 0.02 PT 18.6 H INR 2.0 H Sodium 132 L Potassium 3.6 Chloride 103 Carbon Dioxide 20.3 L Anion Gap 8.7 BUN 22 H Creatinine 1.9 H Est GFR (CKD-EPI 2020) 41.66 Glucose 105 Calcium 8.7 Magnesium 1.8 Total Bilirubin 2.5 H Conjugated Bilirubin 1.4 H AST 82 H ALT 33 Alkaline Phosphatase 159 H Total Protein 6.2 L Albumin 2.0 L Phenobarbital 11.4 L Add-On Test Request DONE PAWSS Have you Been Recently Intoxicated or Drunk Within the Last 30 days?: Yes Have you Ever Experienced Previous Episodes of Alcohol Withdrawal?: Yes Have you ever Experienced Withdrawal Seizures?: No Have you ever Experienced Delirium Tremens(DT)s?: Yes Have you ever undergone Alcohol Rehabilitation Treatment (i.e, inpt ot outpatient treatment programs)?: Yes Have you ever Experienced Blackouts?: Yes Have you ever Combined Alcohol with other Downers within the last 90 days?: No Have you ever Combined Alcohol with any other Substance of Abuse during the last 90 days?: No Positive Blood Alcohol level on Presentation? [PCS.BAL]: Unable to Obtain Evidence of Increased Autonomic Activity (i.e. HR>120, tremor, sweating, agitation, nausea)?: Yes Result: 6 Time Spent with Patient Time Spent with Patient: 25-34 minutes Time was spent: preparing to see the patient(eg.review tests), obtaining and/or reviewing separately otained hiistory, ordering medications,tests, procedures, referring, communicating with other health reproductive healthcare assistant, indepentently interpreting results, counseling the patient and care coordination
--- NOTE | 2023-05-12 13:27 | PT.INIE ---
PT Notes Visit Reasons: Alchola withdrawl, alcohilic hepatitis Date:?05/12/23 Referring Doctor: Leela Collier MD MD Orders: Limited ability, non-urgent Precautions:? Standard Patient Profile/Admitting Diagnosis:???52 y o male admitted with complications of ETOH withdrawal, liver hepatitis and liver cirrhosis related to alcohol abuse. PMHX:All Active Problems (Updated 05/10/23 @ 09:48 by Leela Collier MD) Alcoholic hepatitis with ascites (Acute) Discharge planning issues (Acute) DVT prophylaxis (Acute) Hyponatremia (Acute) Hypomagnesemia (Acute) Alcohol withdrawal (Acute) Acute kidney injury (Acute) Alcoholic cirrhosis of liver with ascites (Chronic) Chronic liver failure without hepatic coma (Chronic) Insomnia, psychophysiological (Chronic) GERD (gastroesophageal reflux disease) (Chronic) Generalized anxiety disorder (Chronic) Erectile dysfunction (Chronic) Chronic cough (Acute) Homeless single person (Acute) End stage liver disease (Chronic) Ascites due to alcoholic cirrhosis (Chronic) ETOH abuse (Chronic) Cirrhosis (Acute) Advanced care planning/counseling discussion (Acute) Hypokalemia (Acute) Medical History Major depression Medication monitoring encounter Palliative care encounter Anxiety and depression Itching Chronic GERD HTN (hypertension) Surgical History S/P abdominal paracentesis (~04/2023) 9th paracentesisHistory of esophagogastroduodenoscopy (EGD) Social History/Home Situation: Has been living in a rented camper independently over the summer in [facility], now homeless as the camper does not have heat or running water. His mother lives out of the area, [place], [place] - this appears to be his only family member. He wishes to go to rehab. Equipment Owned/DME:None Subjective: Wishes to detox and go to a rehab facility, he does not want to live like this anymore. He does not know his options. Objective: General Observation: Lying in hospital bed, abdominal distention/doaming, limb atrophy Mental Status: A & O x 3 Pain: General body stiffness, headach Vital Signs: 109/75 BP ROM: Grossly WFL all extremities Strength: Grossly 4/5 throughout UE and LE's Bed Mobility/Transfers: Independent with bed mobility, supine to EOB, EOB to supine CGx1 Sit to stand, stand to sit at RW CGx1 Ambulation with RW Gait: 50 ft, RW CG x 1, unstable Balance: Static Sitting: Good Dynamic Sitting: Good Static Standing: Fair Dynamic Standing: Fair Special Tests: Mobility Limitations Standardized Measure [facility] AM-PAC 6 clicks Basic Mobility Inpatient Short Form: 35% disability Informed Consent/Education:? Patient was instructed in purpose of PT consult and plan of care. Agreeable to proceed with established PT POC to achieve personal goals. Assessment: Patient presents with clinical signs and symptoms consistent with unstable gait, with admitting diagnoses of ETHO withdrawal that have resulted in mobility limitations, generalized weakness, and overall ADL decline, as demonstrated by the following impairment level findings: Poor balance, mild extremity weakness, poor balance, contributing to functional deficits of gait instability, and poor functional endurance. Patient requires skilled PT intervention to achieve below goals to attend to functional limitation deficits, improve safety with functional attempts, and achieve achieve below goals. Patient is assessed as moderate complexity based on the following: History: Per above social history and medical history Examination: See assessment Presentation: Stable Decision Making:? Easy Goals: Goals X1 week 1. Supine-Sit independent 2. Sit-Supine independent 3. Sit-Stand independent 4. Stand-Sit independent 5. Bed-Chair independent 6. Chair-Bed independent 7. Steady gait on level surface of household distance 8. Independent stair negotiation of 4 steps 9. Independent with home exercise program 10. Good dynamic balance Plan of Care/Treatment Plan: 1-2x/day, 7 days/week x 1 week. Plan of care has been reviewed with the IN HOUSE COUNSEL providing the service under Physical Therapy direction. Initiate Physical Therapy intervention for pain management as needed, strengthening, bed mobility, transfers, gait, stairs, balance training, and use of assistive device. DISCHARGE RECOMMENDATIONS: ? Patient to work with case management, he is homeless and feel alcohol rehabilitation is his goal. He will not need a physical rehabilitation placement, and will be ok to be discharged independently to any living situation. ? TREATMENT CODE(s): 46052 Treatment TIME: 30 min, 13:00-13:30
[2023-05-12] MEDS: Acetaminophen 325 MG TAB 650 MG PO (21:40)
[2023-05-12] MEDS: PHENobarbital 130 MG/ML VIAL IVP (21:58)
[2023-05-12] MEDS: Normal Saline Flush 10 ML SYR IVP (21:58)
[2023-05-13] VITALS (11 sets, daily range): BP systolic 104–128; BP diastolic 66–90; PULSE 66–86; RESP 16–22; TEMP 36–36.9; O2SAT 92–98
[2023-05-13 05:52] LABS: Abs Immature Grans 0.06 10^3/uL (0.0-0.06); Absolute Eosinophil Count 0.05 10^3/uL (0.0-0.7); Basophils % 0.3; Eosinophils % 0.4; HCT 36.7 % (40.0-50.0); HGB 12.2 g/dL (13.5-17.5); Immature Grans % 0.5; MCH 30.8 pg (27.0-33.0); MCHC 33.2 % (32.0-36.0); MCV 93 fL (80-95); MPV 9.8 fL (8.0-11.0); Neutrophils % 80.8; Platelet Count 101 10^3/uL (130-400); RBC 3.96 10^6/uL (4.36-5.78); RDW 17.7 % (11.8-14.1); RDW-SD 58.9 fL; WBC 11.95 10^3/uL (4.4-10.8)
[2023-05-13 05:54] LABS: Absolute Basophil Count 0.04 10^3/uL (0.0-0.2); Absolute Lymphocyte Count 1.08 10^3/uL (1.2-3.4); Absolute Monocyte Count 1.08 10^3/uL (0.1-0.8); Absolute Neutrophil Count 9.66 10^3/uL (1.2-6.7)
[2023-05-13 06:05] LABS: Ammonia 111 umol/L (11-32)
[2023-05-13 06:06] LABS: ALT 29 U/L (16-63); AST 71 U/L (15-37); Alkaline Phosphatase 169 U/L (46-116); Anion Gap 11.4 mmol/L (3-11); BUN 25 mg/dL (7-18); Bilirubin, Direct 1.1 mg/dL (0.0-0.2); Bilirubin, Total 1.7 mg/dL (0.2-1.0); CO2 19.6 mmol/L (21.0-32.0); Calcium 8.4 mg/dL (8.5-10.1); Chloride 102 mmol/L (98-107); Estimated GFR 39.17 (mL/min/1.73m2); Glucose 130 mg/dL (74-106); Magnesium 1.7 mg/dL (1.8-2.4); Potassium 3.4 mmol/L (3.5-5.1); Sodium 133 mmol/L (136-145); Total Protein 6.2 g/dL (6.4-8.2)
[2023-05-13 06:15] LABS: INR 1.9 (0.9-1.1); Prothrombin Time 17.7 sec (9.1-11.1)
[2023-05-13] MEDS: Normal Saline Flush 10 ML SYR IVP ×2 (06:33→08:06)
[2023-05-13] MEDS: Prochlorperazine 5 MG TAB PO (08:05)
--- NOTE | 2023-05-13 08:43 | PDOC.CMPRO ---
Date of service: 05/13/23 Time of Service: 08:44 Care Management Progress Note Progress Note Text Progress Note Text: S/O: Go was lying in bed when CM met with him. He stated that he is feeling better today than he has the past few days, although he feels that his speech/word finding is a bit slower than normal. He discussed his desire to go to alcohol rehab post hospitalization, and how important it is to him to work on his sobriety. CM consulted the graduation coach who met with him later this afternoon to discuss options and provide resources. CM explained that although we will support his admission to a rehab facility, he will not be able to remain at [facility] while waiting for a bed, if there is a wait list; once he is medically cleared, he will be discharged home, where he can admit to the facility from the community. He expressed understanding, and hopes that things will line up accordingly. CM will continue to follow. A: Go is a 52 year old male admitted to [facility] on 05/10/23 with alcohol withdrawal, alcoholic hepatitis. P: Anticipate Go will return home once medically cleared. His friend will drive him home via private vehicle. He will follow up with his PCP and discharge plan of care. CM will continue to follow.
[2023-05-13] MEDS: hydrOXYzine PAMOATE 25 MG CAP 50 MG PO ×2 (08:52→20:44)
[2023-05-13] MEDS: Omeprazole 20 MG CAPCR 40 MG PO (08:52)
[2023-05-13] MEDS: Rifaximin 550 MG TAB PO ×2 (08:56→20:30)
[2023-05-13] MEDS: Thiamine 100 MG TAB PO (08:56)
[2023-05-13] MEDS: Magnesium Gluconate 500 MG TAB PO (08:56)
[2023-05-13] MEDS: Spironolactone 25 MG TAB PO (08:57)
[2023-05-13] MEDS: Midodrine 2.5 MG TAB 10 MG PO ×3 (08:57→20:30)
[2023-05-13] MEDS: Folic Acid 1 MG TAB 5 MG PO (08:58)
[2023-05-13] MEDS: Multivitamin TAB 1 TAB PO (08:58)
[2023-05-13] MEDS: Bumetanide 1 MG TAB 0.5 MG PO ×2 (08:58→13:43)
[2023-05-13] MEDS: Escitalopram 20 MG TAB PO (08:58)
[2023-05-13] MEDS: prednisoLONE SOD PHOS. Soln. 3 MG/ML 40 MG PO (08:59)
[2023-05-13] MEDS: Lactulose 20 GM/30 ML CUP 10 GM PO ×3 (09:00→20:28)
[2023-05-13] MEDS: Potassium Chloride Liquid 20 MEQ PKT PO (09:09)
--- NOTE | 2023-05-13 09:38 | PTTR_ITS ---
Date of service: 05/13/23 Time of Service: 09:15 PT Notes Visit Reasons: Alchola withdrawl, alcohilic hepatitis Inpatient Physical Therapy Treatment Note [facility] Date: 05/13/23 PRECAUTIONS: Fall, standard, activity as tolerated. SUBJECTIVE: Patient reports a bit of a sour stomach due to liquid potassium drink. Feels a little nauseous. OBJECTIVE: Supine in bed. RN Sita, SENIOR WEB APPLICATIONS DEVELOPER Naye, and Dietary all present. Patient is agreeable to therapy. ? PAIN: States he needs a paracentesis but does not elaborate. This may be due to discomfort, but patient does not directly say so. VITALS: monitored by nursing staff. ? ? BED MOBILITY/TRANSFERS? Rolling L/R: not assessed Supine-sit: SBA ? Sit-supine: not assessed ? Sit-stand: SBA ? Stand-sit: SBA ? Bed-Chair: CGA ? Chair-bed: CGA Gait Training ([id number]): Direct one-on-one instruction and skilled instruction in: [] employing an assistive device [] modified weight-bearing status [x] movement sequencing [x] turning and movement with proper form [] Provided verbal cues for equipment management and technique [x] Provided instruction in gait pattern [] Patient education regarding pacing and breathing techniques to maximize activity tolerance? GAIT? Assistive Device: none? Weight bearing: full Assist: min assist for balance ? Distance:? 320 feet ? Deviation: Patient has a gait pattern that changes, sometimes asymmetrical with left leg leading, sometimes right leg leading. Sometimes patient drifts to one side or the other instead of walking a straight line. Patient states that his vision is weird, complains of blurriness, swimming in his periphery and tunnel vision which is very acute. Does state that he typically wears glasses. FLORES Buckner notified. ? ASSESSMENT:? Patient tolerates therapy well, states that he thinks he just needs more practice walking. Agreeable to training balance as well. PLAN: Continue global strengthening per plan of care until patient is medically ready for discharge and achieves a safe discharge plan. TREATMENT CODE/TIME: 22 minutes beginning at 9:15
--- NOTE | 2023-05-13 12:47 | W.PM.PROGNOT ---
Date of Service Date of service: 05/13/23 Time of Service: 12:47 Assessment and Plan Assessment and plan (1) Alcohol withdrawal: Status: Acute Assessment and plan: Doing much better. Patient remains in the ICU although technically was transferred to med/surg status yesterday. He has not required any additional phenobarbital since 21:58 yesterday evening. He is at 1110 mg total dose which is close to his soft stop of 1130 mg. He can have additional prn phenobarbital but has not needed this. (2) Alcoholic hepatitis with ascites: Status: Acute Assessment and plan: Patient w/ discriminant score is 32.1, he is currently on prednisolone 40 mg daily (he should remain on this dose for 28 days then taper over 2 weeks. He has high risk of mortality. Surgery has been asked to see him about paracentesis. (3) Alcoholic cirrhosis of liver with ascites: Status: Chronic Assessment and plan: Does have coagulopathy, h/o encephalopathy w/o active signs of this, ascites. Heme negative. S/p vitamin K x1 yestesrday. General surgery consulted for paracenthesis, but they have deferred until improved INR which I do not expect will improve much further if elevated d/t his cirrhosis but if some nutritional deficiency then may correct further w/ supplementation. He had two doses of 2.5 mg vitamin K, I will give one time dose of 10 mg and repeat his INR tomorrow. Renal US done 3 days ago did not show any urinary obstruction but demonstrated abundant ascites. diuretics resumed, will increase bumex to 1 mg daily and add spironolactone 25 mg daily, monitor renal fxn and electrolytes (4) Chronic liver failure without hepatic coma: Status: Chronic Assessment and plan: Provide a low sodium diet. As above. (5) Acute kidney injury: Status: Acute Assessment and plan: US renal negative. Able to void. Bladder scans overestimate his PVRs due to ascites. Resume diuretics and monitor Cr. (6) Hypomagnesemia: Status: Resolved Assessment and plan: replete and monitor (7) Hyponatremia: Status: Acute Assessment and plan: sodium is improving, now at 133 , monitor daily BMP while diuresing (8) DVT prophylaxis: Status: Acute Assessment and plan: SCDs. I am holding off on chemical DVT ppx since I am not sure about the status of varices. (9) Discharge planning issues: Status: Acute Assessment and plan: Full code Transfer out of the ICU. C/s palliative care. Subjective Subjective Interval history since last seen: Mr. Cyr seems much calmer today. His answers are slow and deliberate but he does seem to be oriented to person place as well as month and year and circumstances leading up to his hospitalization Patient is now receiving a total of 1110 mg of phenobarbital which is near his soft stop level of 1130 mg. Hard stop which is a dose of 25 mg/kg be 1506 mg. Mg 1 Exam Narrative Exam Narrative: Go is alert and oriented to person place and circumstances but is month year day of the week. HEENT is remarkable for slight jaundiced appearance to the skin Lungs are clear to auscultation Heart is regular rate and rhythm without murmur rub or gallop Abdomen is distended soft nontender with active bowel sounds Guarding or rebound tenderness Lower extremities no peripheral cyanosis or edema. Neuro right he has no tremors no bowel asterixis normal range of motion and strength Objective Last Vital Signs Temp 36.6 C 05/13/23 08:12 Pulse 85 05/13/23 06:00 Resp 20 05/13/23 06:00 BP 107/90 05/13/23 06:00 Pulse Ox 93 05/13/23 06:00 Laboratory Results - last 24 hr 05/13/23 05:42 WBC 11.95 H RBC 3.96 L Hgb 12.2 L Hct 36.7 L MCV 93 MCH 30.8 MCHC 33.2 RDW 17.7 H Plt Count 101 L MPV 9.8 Immature Gran % 0.5 Neutrophils % 80.8 Lymphocytes % 9.0 Monocytes % 9.0 Eosinophils % 0.4 Basophils % 0.3 Nucleated RBC % 0.0 Absolute Neutrophils 9.66 H Absolute Lymphocytes 1.08 L Absolute Monocytes 1.08 H Absolute Eosinophils 0.05 Absolute Basophils 0.04 PT 17.7 H INR 1.9 H Sodium 133 L Potassium 3.4 L Chloride 102 Carbon Dioxide 19.6 L Anion Gap 11.4 H BUN 25 H Creatinine 2.0 H Est GFR (CKD-EPI 2020) 39.17 Glucose 130 H Calcium 8.4 L Magnesium 1.7 L Total Bilirubin 1.7 H Conjugated Bilirubin 1.1 H AST 71 H ALT 29 Alkaline Phosphatase 169 H Ammonia 111 H Total Protein 6.2 L Albumin 2.0 L PAWSS Have you Been Recently Intoxicated or Drunk Within the Last 30 days?: Yes Have you Ever Experienced Previous Episodes of Alcohol Withdrawal?: Yes Have you ever Experienced Withdrawal Seizures?: No Have you ever Experienced Delirium Tremens(DT)s?: Yes Have you ever undergone Alcohol Rehabilitation Treatment (i.e, inpt ot outpatient treatment programs)?: Yes Have you ever Experienced Blackouts?: Yes Have you ever Combined Alcohol with other Downers within the last 90 days?: No Have you ever Combined Alcohol with any other Substance of Abuse during the last 90 days?: No Positive Blood Alcohol level on Presentation? [PCS.BAL]: Unable to Obtain Evidence of Increased Autonomic Activity (i.e. HR>120, tremor, sweating, agitation, nausea)?: Yes Result: 6 Time Spent with Patient Time Spent with Patient: 35-49 minutes Time was spent: preparing to see the patient(eg.review tests), ordering medications,tests, procedures, referring, communicating with other health pharmacy customer care specialist, indepentently interpreting results, counseling the patient and care coordination
[2023-05-13] MEDS: Phytonadione 5 MG TABLET 10 MG PO (13:42)
--- NOTE | 2023-05-13 15:07 | NT_ITS ---
PT Notes Visit Reasons: Alchola withdrawl, alcohilic hepatitis Pt not able to participate with therapy due to pt undergoing medical procedu re(paracentisis/ascitic tap)
--- NOTE | 2023-05-13 16:01 | W.PM.PROGNOT ---
Date of Service Date of service: 05/13/23 Time of Service: 16:01 Assessment and Plan Assessment and plan (1) Alcoholic hepatitis with ascites: Status: Acute Assessment and plan: I discussed with Go the increased risk of paracentesis with elevated INR. However, at this point, with mild improvement of the INR, I do think that the potential benefit outweighs the risks associated with the procedure. I think he has a good understanding of this. I also explained that based on his recent kidney injury, we recommend relatively limited paracentesis, with gentle resuscitation using albumin afterwards, and reassessment over the next 48 hours or so. He tolerated drainage of 6 L of ascites without any issue. I placed an order for 25 g of albumin, and we can reassess over the next day or 2. Subjective Subjective Interval history since last seen: Go is 52 years old, he has alcoholic cirrhosis. He typically undergoes paracentesis every week for tense ascites. Unfortunately, he is recently required hospitalization for alcohol withdrawal. I was asked to see him in consultation for paracentesis this weekend. However, his INR and creatinine were both quite elevated. He has had a favorable response to resuscitation. Additionally, he has had increased abdominal pain, and exertional dyspnea secondary to his ascites. Exam GI Other: His abdomen is distended, mildly tender, and clinically consistent with tense ascites. Objective Last Vital Signs Temp 97.9 F 05/13/23 08:12 Pulse 85 05/13/23 06:00 Resp 20 05/13/23 06:00 BP 107/90 05/13/23 06:00 Pulse Ox 93 05/13/23 06:00 Laboratory Results - last 24 hr 05/13/23 05:42 WBC 11.95 H RBC 3.96 L Hgb 12.2 L Hct 36.7 L MCV 93 MCH 30.8 MCHC 33.2 RDW 17.7 H Plt Count 101 L MPV 9.8 Immature Gran % 0.5 Neutrophils % 80.8 Lymphocytes % 9.0 Monocytes % 9.0 Eosinophils % 0.4 Basophils % 0.3 Nucleated RBC % 0.0 Absolute Neutrophils 9.66 H Absolute Lymphocytes 1.08 L Absolute Monocytes 1.08 H Absolute Eosinophils 0.05 Absolute Basophils 0.04 PT 17.7 H INR 1.9 H Sodium 133 L Potassium 3.4 L Chloride 102 Carbon Dioxide 19.6 L Anion Gap 11.4 H BUN 25 H Creatinine 2.0 H Est GFR (CKD-EPI 2020) 39.17 Glucose 130 H Calcium 8.4 L Magnesium 1.7 L Total Bilirubin 1.7 H Conjugated Bilirubin 1.1 H AST 71 H ALT 29 Alkaline Phosphatase 169 H Ammonia 111 H Total Protein 6.2 L Albumin 2.0 L Procedures Paracentesis Time out performed: Yes Indication: Ascites Procedure: therapeutic paracentesis Location: LLQ Local anesthetic used: lidocaine 1% Amount of anesthesia used (ml): 5 Bedside ultrasound used: yes, Ascites confirmed and location marked Preparation: sterile prep and drape Amount of fluid obtained (ml): 6,000 Fluid: clear Size of needle used: 5 Post procedure exam: awake, alert, normal BP, normal HR and normal SpO2 Patient tolerated procedure: well and no complications Complications: none PAWSS Have you Been Recently Intoxicated or Drunk Within the Last 30 days?: Yes Have you Ever Experienced Previous Episodes of Alcohol Withdrawal?: Yes Have you ever Experienced Withdrawal Seizures?: No Have you ever Experienced Delirium Tremens(DT)s?: Yes Have you ever undergone Alcohol Rehabilitation Treatment (i.e, inpt ot outpatient treatment programs)?: Yes Have you ever Experienced Blackouts?: Yes Have you ever Combined Alcohol with other Downers within the last 90 days?: No Have you ever Combined Alcohol with any other Substance of Abuse during the last 90 days?: No Positive Blood Alcohol level on Presentation? [PCS.BAL]: Unable to Obtain Evidence of Increased Autonomic Activity (i.e. HR>120, tremor, sweating, agitation, nausea)?: Yes Result: 6 Time Spent with Patient Time Spent with Patient: 35-49 minutes Time was spent: preparing to see the patient(eg.review tests), ordering medications,tests, procedures, referring, communicating with other health health care specialist, indepentently interpreting results and counseling the patient
[2023-05-13] MEDS: ALBUMIN HUMAN 25 GM/100 ML BTL IVPB (17:40)
--- NOTE | 2023-05-14 06:47 | UCONE_ITS ---
Date of service: 05/13/23 Time of Service: 17:35 Assessment and Plan Assessment and plan (1) Urinary retention: Assessment and plan: His retention is likely related to sphincter and proximal urethral muscle spasm. I do not suspect that this will be a chronic or progressive issue for him but probably was related to his acute illness. I do not think he needs to be on any type of alpha-harish or urinary medication. I do not believe he needs any specific follow-up with me unless he develops problems again. History of Present Illness History of Present Illness Chief Complaint: urinary retention Narrative: Chief complaint: Urinary retention This is a 52-year-old gentleman who has a history of cirrhosis. He was admitted to the hospital with alcohol withdrawal symptoms. His serum creatinine was elevated and he was managed with intermittent catheterization. Some of the catheterizations were traumatic. Two days ago, he had an episode of being unable to void. His bladder scan showed a volume of 400 cc. He required straight catheterization. Since that time, he has been able to void. He tells me that he typically has no issues with his urination when he is at home. He has not had an episode of retention previously. He has not had recurrent urinary tract infections or blood in the urine. He has no history of kidney stones or urologic surgery. Review of Systems Narrative: No fevers or chills No vision change or dysphasia No diabetes or thyroid dysfunction No shortness of breath, cough or hemoptysis No chest pain or palpitations Hx GERD. Ascites managed with paracentesis. No nausea, vomiting No strokes or peripheral neuropathy No gout PFSH All Active Problems (Updated 05/14/23 @ 07:22 by Jordon Henley MD) Alcoholic hepatitis with ascites (Acute) Discharge planning issues (Acute) DVT prophylaxis (Acute) Hyponatremia (Acute) Alcohol withdrawal (Acute) Acute kidney injury (Acute) Alcoholic cirrhosis of liver with ascites (Chronic) Chronic liver failure without hepatic coma (Chronic) Insomnia, psychophysiological (Chronic) GERD (gastroesophageal reflux disease) (Chronic) Generalized anxiety disorder (Chronic) Erectile dysfunction (Chronic) Chronic cough (Acute) Homeless single person (Acute) End stage liver disease (Chronic) Ascites due to alcoholic cirrhosis (Chronic) ETOH abuse (Chronic) Cirrhosis (Acute) Advanced care planning/counseling discussion (Acute) Hypokalemia (Acute) Medical History (Updated 05/14/23 @ 07:22 by Jordon Henley MD) Urinary retention Major depression Medication monitoring encounter Palliative care encounter Anxiety and depression Itching Chronic GERD HTN (hypertension) Surgical History (Updated 05/10/23 @ 13:34 by Tana Gillespie) S/P abdominal paracentesis (~04/2023) paracentesis History of esophagogastroduodenoscopy (EGD) Family History Father Cirrhosis Mother No problems noted. Other GERD (gastroesophageal reflux disease) Social History Smoking/Tobacco Use Status: Current every day Tobacco Type: cigarettes Quit status: has quit before Second Hand Exposure: Yes Smoking risk assessment performed?: Yes Alcohol Intake: current Alcohol Intake frequency: 3 or more drinks per day Alcohol type: hard liquor Drug use: Never Substance use type: does not use Caregiver/Support person: No Household members: none Housing: other Pets and animals: No Sexually active: No How often do you talk on the phone with friends or family?: twice per week How often do you get together with friends or relatives?: once per week How often do you attend alevism or evangelical services?: decline to answer Do you belong to any clubs or organized social groups?: no Panel score (0-1 are the most socially isolated patients): 1 What type of physical activity do you participate in: none Pat/Congregation: None Seatbelt use: always Helmet use: Yes Drive intox or ride w/intox inventory associate and driver: No Do you feel safe at home: Yes Additional Social history: lives alone, camping RV Exam Narrative Exam Narrative: He appears calm stable His vital signs are documented elsewhere His abdomen is soft. His bladder is not distended. He is awake and alert. I reviewed his renal ultrasound on the PACS system. He does not have any hydronephrosis and his bladder is not overly distended. He does have a large amount of ascites which extends down adjacent to his bladder. Results Last Vital Signs Temp 36 C L 05/13/23 23:39 Pulse 85 05/13/23 23:39 Resp 16 05/13/23 23:39 BP 128/77 05/13/23 23:39 Pulse Ox 98 05/13/23 23:39 Labs 05/13/23 05:42 05/13/23 05:42
[2023-05-14 07:58] LABS: Abs Immature Grans 0.02 10^3/uL (0.0-0.06); Absolute Basophil Count 0.03 10^3/uL (0.0-0.2); Absolute Eosinophil Count 0.05 10^3/uL (0.0-0.7); Absolute Lymphocyte Count 1.08 10^3/uL (1.2-3.4); Absolute Monocyte Count 0.93 10^3/uL (0.1-0.8); Absolute Neutrophil Count 7.41 10^3/uL (1.2-6.7); Basophils % 0.3; Eosinophils % 0.5; HGB 13.2 g/dL (13.5-17.5); Immature Grans % 0.2; Lymphocytes % 11.3; MCH 31.1 pg (27.0-33.0); MCHC 33.8 % (32.0-36.0); MCV 92 fL (80-95); MPV 9.9 fL (8.0-11.0); Monocytes % 9.8; Neutrophils % 77.9; Platelet Count 103 10^3/uL (130-400); RBC 4.24 10^6/uL (4.36-5.78); RDW 17.9 % (11.8-14.1); RDW-SD 59.3 fL; WBC 9.52 10^3/uL (4.4-10.8)
[2023-05-14 07:59] LABS: Ammonia 57 umol/L (11-32)
[2023-05-14 08:04] LABS: INR 1.8 (0.9-1.1); Prothrombin Time 17.1 sec (9.1-11.1)
[2023-05-14 08:14] LABS: ALT 32 U/L (16-63); AST 63 U/L (15-37); Albumin 2.5 g/dL (3.4-5.0); Alkaline Phosphatase 156 U/L (46-116); BUN 27 mg/dL (7-18); Bilirubin, Direct 1.2 mg/dL (0.0-0.2); CREATININE 1.9 mg/dL (0.70-1.30); Calcium 8.8 mg/dL (8.5-10.1); Chloride 103 mmol/L (98-107); Estimated GFR 41.66 (mL/min/1.73m2); Glucose 121 mg/dL (74-106); Magnesium 1.8 mg/dL (1.8-2.4); Potassium 3.1 mmol/L (3.5-5.1); Sodium 136 mmol/L (136-145)
[2023-05-14] MEDS: Folic Acid 1 MG TAB 5 MG PO (08:21)
[2023-05-14] MEDS: Midodrine 2.5 MG TAB 10 MG PO ×3 (08:22→19:33)
[2023-05-14] MEDS: Omeprazole 20 MG CAPCR 40 MG PO (08:22)
[2023-05-14] MEDS: Magnesium Gluconate 500 MG TAB PO (08:23)
[2023-05-14] MEDS: Rifaximin 550 MG TAB PO ×2 (08:23→19:33)
[2023-05-14] MEDS: Spironolactone 25 MG TAB PO (08:24)
[2023-05-14] MEDS: Thiamine 100 MG TAB PO (08:24)
[2023-05-14] MEDS: Escitalopram 20 MG TAB PO (08:24)
[2023-05-14] MEDS: Bumetanide 1 MG TAB PO (08:24)
[2023-05-14] MEDS: Multivitamin TAB 1 TAB PO (08:25)
[2023-05-14] MEDS: Lactulose 20 GM/30 ML CUP 10 GM PO ×3 (08:25→19:33)
[2023-05-14] MEDS: hydrOXYzine PAMOATE 25 MG CAP 50 MG PO ×2 (10:15→19:33)
[2023-05-14] MEDS: prednisoLONE SOD PHOS. Soln. 3 MG/ML 40 MG PO (10:21)
--- NOTE | 2023-05-14 11:02 | PT.INTREAT ---
Date of service: 05/14/23 Time of Service: 09:48 PT Notes Visit Reasons: [place] withdrawl, alcohilic hepatitis Inpatient Physical Therapy Treatment Note [facility] Date: 05/14/23 PRECAUTIONS: Fall, standard, activity as tolerated. SUBJECTIVE: Patient reports that he is supposed to have physical therapy today, appears eager to participate when informed that therapy is why this clinician is present. OBJECTIVE: Supine in bed, agreeable to therapy. KATHE alarm in place and active.? PAIN: none reported. VITALS: monitored by nursing staff. Therapeutic Activities ([id number]): Direct one-on-one instruction in dynamic activities to improve functional performance. ? BED MOBILITY/TRANSFERS? Rolling L/R: independent Supine-sit: independent ? Sit-supine: independent ? Sit-stand: independent ? Stand-sit: independent ? Bed-Chair: SBA ? Chair-bed: SBA Provided skilled cues and instruction on performance and technique throughout. ? Therapeutic Exercises (04817k1): Direct one-on-one instruction in therapeutic exercises to develop strength, endurance, range of motion and flexibility. Ambulation ? Assistive Device: none? Weight bearing: full Assist: SBA ? Distance:? 625 feet ? Deviation: Patient walks in a much more straight line today than yesterday, only drifting to one side or the other when he is also engaged in conversation and even then, the drift is much less pronounced than yesterday. No LOB. No SOB. Patient does stop before re-entering his room to finish his story, stands with feet staggered left foot's heel a full foot's length ahead of right toes, during story (approximately 20-30 seconds) he is observed to sway slightly, however no LOB is observed. ? Provided skilled instruction in proper exercise performance Provided skilled manual cues to facilitate proper muscle recruitment and/or form. ASSESSMENT:? KATHE alarm replaced. Patient tolerates therapy well, is agreeable to participate again in the afternoon. AFTERNOON: Patient unavailable. PLAN: Continue global strengthening per plan of care until patient is medically cleared for discharge and has a safe discharge plan. Increase balance training. TREATMENT CODE/TIME: 13 minutes beginning at 9:48
[2023-05-14 11:29] VITALS: BP 115/74; PULSE 71; RESP 18; TEMP 35.8; O2SAT 96
--- NOTE | 2023-05-14 13:46 | PGE_ITS ---
Date of Service Date of service: 05/14/23 Time of Service: 13:46 Assessment and Plan Assessment and plan (1) Alcohol withdrawal: Status: Acute Assessment and plan: much improved. s/p treatment w/ phenobarbital protocol. he is no longer scoring on CIWA (0 to 2). No longer has required phenobarbital. I think he can be discharged in the next 24 hours. I am waiting to see if he requires any further paracentesis by Dr. Latham. Qualifiers: Complication of substance-induced condition: with perceptual disturbance Qualified Code(s): F10.932 - Alcohol use, unspecified with withdrawal with perceptual disturbance (2) Alcoholic hepatitis with ascites: Status: Acute Assessment and plan: His Maddrey score was high enough (32) to require prednisolone which he will need to take for 3 to 4 months then taper offf over a month. (3) Alcoholic cirrhosis of liver with ascites: Status: Chronic Assessment and plan: s/p paracentesis of 6 liter yesterday. patient duretics have been resumed. Now on spironlactone 25 mg daily and bumex 1 mg daily., also on rifaximin and lactulose for hepatic encephalpathy. ammonia level is down today at 57 (4) Chronic liver failure without hepatic coma: Status: Chronic Assessment and plan: as above (5) Acute kidney injury: Status: Acute Assessment and plan: stable, BUN 27, CREATININE 1.9 (6) Hypomagnesemia: Status: Resolved Assessment and plan: replete and monitor (7) Hyponatremia: Status: Acute Assessment and plan: sodium is improving, now at 136 , monitor daily BMP while diuresing (8) DVT prophylaxis: Status: Acute Assessment and plan: SCD, avoid chemoprophylaxis d/t his liver disease/coagulopathy (9) Discharge planning issues: Status: Acute Assessment and plan: likely dc tomorrow. hopefully [facility] can assist in finding housing otherwise he will be homeless. I did suggest to him that he consider returning to [place] as he is still currently on [place] medicaid and may have more options there. He also has family in [place]. Subjective Subjective Interval history since last seen: Go states that he feels better today. Not anxious and denies any tremulousness or hallucinations. he does feel tired. He told me that he is homeless and moved up to [place] this summer to camp w/ friends. He is from [place]. 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 Exam Narrative Exam Narrative: Go is alert and oriented x 3 no acute distress, speech is clear and coherent and thought processes seem focused, attentive, and cogent Abdomen: he still has some ascites but much improved since Dr. Latham did paracentesis yesterday Lungs: clear Heart; RRR Extreemities: no pitting edema Objective Last Vital Signs Temp 35.8 C L 05/14/23 11:29 Pulse 71 05/14/23 11:29 Resp 18 05/14/23 11:29 BP 115/74 05/14/23 11:29 Pulse Ox 96 05/14/23 11:29 Laboratory Results - last 24 hr 05/14/23 05/14/23 07:45 07:45 WBC 9.52 RBC 4.24 L Hgb 13.2 L Hct 39.0 L MCV 92 MCH 31.1 MCHC 33.8 RDW 17.9 H Plt Count 103 L MPV 9.9 Immature Gran % 0.2 Neutrophils % 77.9 Lymphocytes % 11.3 Monocytes % 9.8 Eosinophils % 0.5 Basophils % 0.3 Nucleated RBC % 0.0 Absolute Neutrophils 7.41 H Absolute Lymphocytes 1.08 L Absolute Monocytes 0.93 H Absolute Eosinophils 0.05 Absolute Basophils 0.03 PT 17.1 H INR 1.8 H Sodium 136 Potassium 3.1 L Chloride 103 Carbon Dioxide 20.0 L Anion Gap 13.0 H BUN 27 H Creatinine 1.9 H Est GFR (CKD-EPI 2020) 41.66 Glucose 121 H Calcium 8.8 Magnesium 1.8 Cancelled Total Bilirubin 2.0 H Conjugated Bilirubin 1.2 H AST 63 H ALT 32 Alkaline Phosphatase 156 H Ammonia 57 H Total Protein 7.0 Albumin 2.5 L PAWSS Have you Been Recently Intoxicated or Drunk Within the Last 30 days?: Yes Have you Ever Experienced Previous Episodes of Alcohol Withdrawal?: Yes Have you ever Experienced Withdrawal Seizures?: No Have you ever Experienced Delirium Tremens(DT)s?: Yes Have you ever undergone Alcohol Rehabilitation Treatment (i.e, inpt ot outpatient treatment programs)?: Yes Have you ever Experienced Blackouts?: Yes Have you ever Combined Alcohol with other Downers within the last 90 days?: No Have you ever Combined Alcohol with any other Substance of Abuse during the last 90 days?: No Positive Blood Alcohol level on Presentation? [PCS.BAL]: Unable to Obtain Evidence of Increased Autonomic Activity (i.e. HR>120, tremor, sweating, agitation, nausea)?: Yes Result: 6 Time Spent with Patient Time Spent with Patient: 35-49 minutes Time was spent: preparing to see the patient(eg.review tests), obtaining and/or reviewing separately otained hiistory, ordering medications,tests, procedures, referring, communicating with other health healthcare manager, indepentently interpreting results, counseling the patient and care coordination
--- NOTE | 2023-05-14 13:59 | W.PALLCONSUL ---
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 He no-showed to his appt with me last week. He was admitted to [facility] 4 days ago with acute alcohol withdrawal, ESTRELLA, acute urinary retention, electrolyte imbalances. Mr. Chavez has a long history of alcohol abuse. He also has a very strong fam Hx of liver disease(dad and grandmother). Dx with liver disease at age 48 yrs when he presented with ascites and pruritus.? He moved from [place] to [facility] in December 2022.? His current plan is to go to inpatient [facility] rehab for 3-4 weeks. All this places have a waiting periods(probably 3-4 weeks). His name is on one waiting list (cannot recall name). Phone is working and he has a phone plan. There was a plan 2 weeks ago for him to go back to [place] and live in a fci and then go [facility] in[facility] rehab. However, he would need to leave his car somewhere else and he cannot leave his car at his sister's house. This apparently a barrier to his goign and he now is not planning to go back to [place]. Social Situation/housing: -Reports that he cannot go back to [facility] where he was staying in [facility] when discharged tomorrow. -Reports that he cannot go and live with sister (too complicated to explain) ESLD: ETOH: Patient had had brief period of abstinence in the spring. Since unable to find any housing (and I was also told by Jennifer Blancas that there is simply no housing available), he resumed drinking. He reports that he had been drinking 4-6 glasses of vodka. He says he was conitnuing to take the acamprosate, but his desire to drink was even greater. Has not been to an AA meeting since he moved to [place]. Had planned to.Attended AA 6 days a week in [place] before moving here. Was completely sober most of the time, occasionally slips off the wagon (which usually comprised a drink or two and then I would stop. Ascites: Has been having paracentesis done for comfort every 2-4 weeks for the last 4+ years. He has continued these with [facility] Surgery Team since moving here. Surgery is managing diuretics. ESTRELLA: Not yet back to previous baseline. Diarhea: Reports that he is taking lactulose at lower dose 7.5 ml BID. Still having frequent diarrhea. Is taking Xifaxan. Urinary retention: resolved, See urology note. Depression:See previous notes for more in-depth history. Has been seeing Counselor via telemetry health through his PCP office is 3 visits thus far). He will have intake at [facility] for more long-term counseling soon. Continues on S-Citalopram 20 mg daily. Go has admitted to thoughts that he might be better off but has never had discrete thoughts of self-harm. More that it would be better if he did not wake up. Screening for suicidal ideation, this is unchanged. No thoughts of self-harm. History of upper GI bleed in [place]: [facility] gastro[facility]ology was planning to repeat EGD. Nadolol was stopped, due to episodes of hypotension. [facility] chart shows no scheduled follow-up at this time for EGD or other evaluation. Care Team: Primary Care physician: Kushal Salgado NP [facility] General surgery: et. Con al Gastroenterology: [facility] Social HX: Currently living situation: He lived and worked in [place] up until 5 years ago.? He had to stop working because of ESLD around that time. His mom was living nearby.? She had a fall and needed additional help.? Both of them moved to [place] to be closer to his sister; they lived togeher in an apartment, supporting each other (she reminded him to take his medications and he did the heavier work around the house).? Recently his mom moved into assisted living and he is no longer able to live with her.? This past December he moved back to [place] to be closer to friends. ? No close family left in [place]. But he does have close friends.? NEVER , NO PARTNER.? NO children. Gets along with his sister (who still lives in [place]) and Mother..? 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 -Brother in [place], last talked to him 2 years ago. No current relationship (not a bad relationship). He is staying on friend's property in a tent. This friend is no longer a source of support. Go was somewhat tangential about why this has changed. I used to have a respectable job. People who I thought were friends, it turned out the opposite was true. I decided t drink because of the emotional pain. I woke up one day and found myself destitute. Has SSI disability, has medicare and has [place] medicaid. Has not yet switched to [place] Medicaid (I thought [facility] [employer] was assisting with this. Additional services: Several meetings with [facility] (Jennifer Blancas) Impression of currents health status: Not doing well. What bothers you the most: Unable to get housing. His friends flange turner not to be his friends. What worries you the most: Unable to get housing. Goals: -To find a place to live. (both short term until he is in inpt rehab and residential after that). Cannot express any ways he would go about this. -To get into substance abuse rehab (inpt). HE says he is on wait lists. Function: Ambulation:No aids, walks very slowly, frequent falls, balance is off. Last fell a few months ago. Legs do give out. ADLs:Independent iADLs: driving (limits), handling his own finances. Hearing:Fine Vision: Needs new glasses. Cognition: Hx Encephalopathy Palliative Performance Scale % Ambulation Activity and Evidence of Disease Self Care Intake Level of Consciousness 100 Full Normal activity, no evidence of disease Full Normal Full 90 Full Normal activity, some evidence of disease Full Normal Full 80 Full Normal activity with effort, some evidence of disease Full Normal or reduced Full 70 Reduced Unable to do normal work, some evidence of disease Full Normal or reduced Full 60 Reduced Unable to do hobby or some housework, significant disease Occasional assist necessary Normal or reduced Full or confusion 50 Mainly sit/lie Unable to do any work, extensive disease Considerable assistance required Normal or reduced Full or confusion 40 Mainly in bed Unable to do any work, extensive disease Mainly assistance Normal or reduced Full, drowsy, or confusion 30 Totally bed bound Unable to do any work, extensive disease Total care Reduced Full, drowsy, or confusion 20 Totally bed bound Unable to do any work, extensive disease Total care Minimal sips Full, drowsy, or confusion 10 Totally bed bound Unable to do any work, extensive disease Total care Mouth care only Drowsy or coma 0 - - - - Patient Score: 80 Spiritual history: Raised Tenriism, believes in higher power but not actively praying or attending any hoahaoism sikh/group. Palliative review of systems: Pain: Usual abdominal pain. Dyspnea: Worst 3 days before paracentesis. (Better since paracentesis) GI symptoms: Diarrhea chronic Appetite: Pretty good Depression: See HPI Anxiety: See HPI Emotional Distress:See HPI Spiritual/Existential Distress: Labs:05/14/23 Cr: 1.9-2.0 (previous baseline 1.3?1.4 since December 2022) Liver panel: 05/03/2023 labs: Bilirubin 2.0;AST 63 (often higher);ALT normal, Alk Phos 195 (usual range), ammonia see flow sheet, elevated. Albumin: 2.0-2.5 CBC:13.3 hgb, plts 104 (usual 100-180 range), MCV 103 INR:1.9 (had been 1.4) Ammonia: Not done Advanced Care Planning: Advanced Directive: Does not have Health Care Agent: Would want his Mom to be HCA if she was still OK. He declined to designate sister as alternate (I would not want to put this responsibility on her, she is too busy and travels a lot. There is no one he wants to designate.) COLST: None, currently full code Limitations: Assessment and Plan Assessment and plan (1) Palliative care encounter: Assessment and plan: Unfortunately, Go has fallen whole hog off the wagon resulting in acute exacerbation of his ESLD with alcohol withdrawal along with acute worsening of his hepatic encephalopathy. As per staff reports he has improved over the last 4 days as an inpatient. Scoring 0 on CIWA. However to me he still appears more encephalopathic than baseline today. Go's biggest problem is his housing situation. He is now homeless. He is unable to return to camping on his friends property. I have seen Go problem-solve in the past including getting himself medical providers, scheduling paracentesis, finding specialist. However he has been unable to solve the homeless problem. Unfortunately now this has become a Catch-22: He is drinking due to the stress of being homeless, and drinking is making it more difficult for him to find housing (and I suspect has led to his friend disinviting him from returning to camp on his property). Today's visit spent with motivational interviewing around maintaining sobriety. Identified that in [place] he was attending AA meetings 6 times a week. He was not completely sober but would only have a few drinks now and then. He has not attended a single AA meetings since moving back to [place] 4+ months ago. Unfortunately, Go has been unable to create a family and friend support system in [place] and things have gotten gradually worse for him since he moved back. He is not willing to explain to me why he feels he cannot move back to [place], where he at least has family support. Apparently there is some conflict between him and his sister. Briefly during our visit, it appears there was a plan for him to go back to [place], leave his car with his sister, stay at a fci until he was able to be admitted to a short-term inpatient substance abuse rehab program. However at the moment he does not feel that that is the way to proceed. If he stays in [place], he is unable to explain to me where he will go tomorrow. Does not even propose to me that he will have to sleep in his car. I believe he is still mildly to moderately encephalopathic and this is making it difficult for him to make safe decisions as far as where to go after discharge. Even with cueing, he was unable to come up with any plans. He has become increasingly despondent over his housing situation over my sequential visits with him over the last few months. He does not have any active thoughts of self-harm. I did recommend that he go to the emergency room for evaluation should any develop. Advance care planning: We did discuss goals of care around medical decision making briefly. Since I felt he was still mildly to moderately encephalopathic, we went slowly. In the past he has expressed the desire to have CPR and intubation. Today he initially felt that he would not want to have CPR but then reconsidered and said he would want to just have a trial of CPR . We discussed the procedure of CPaR, actual mechanical process, rate of success in restoring heartbeat, short and long-term side effects in survivors (including likely decreased physical and cognitive functioning). I recommended that given his end-stage renal disease, decreased renal function, that he consider DNR status; if he had a cardiac arrest, I think he had a very low chance of being resuscitated and live independently subsequently to that. However, after consideration, he would like to have a brief trial of CPR should his heart stop as well as a brief trial of intubation should he have respiratory failure. We will revisit this at future visits if he is still here. Go has also been unwilling to assign anyone as his alternate healthcare agent after his mom (who is elderly and currently living in assisted living). He feels it would be a burden to his sister to do this. We discussed that if he did not elect her, she would probably end up in this role. He is aware of this. He was unwilling to assign anybody to alternate healthcare agent today again. Housing: -He qualifies for limited number of days of emergency housing to be used over the winter. -He will continue to work with his current resources on finding housing. -We discussed today that returning to [place] may be his best option for the winter. He is dubious about this. Alcoholism: -His plan is to enter inpatient rehab as soon as possible after discharge from [facility]. -Go does not feel it is realistic for him to attend AA at this time, too much going on. -He plans to continue taking his acamprosate. -He will continue to meet with his mental health counselor via telehealth visits. Palliative Care Team plans to continue to meet with Go if he remains in the area. (2) Advanced care planning/counseling discussion: Status: Acute (3) Cirrhosis: Status: Acute (4) ETOH abuse: Status: Chronic (5) Ascites due to alcoholic cirrhosis: Status: Chronic (6) Homeless: Status: Acute Assessment and plan: Case reviewed with case management and hospitalist. 16 to 30 minutes spent today on Advance Care Planning. Patient and family participated voluntarily. Advance care planning may include (not limited to) explanation and discussion of advance directives, choosing and appointing healthcare agents, alternatives to various ACP tools, discussion of (and if indicated, completion of) COLST form, discussion of patient's values and overall goals for treatment, palliative and disease directive care options, ways to avoid hospital readmission including hospice discussions, care preferences should the patient's several other adverse health events.See today's palliative care note for additional information. PFSH All Active Problems (Updated 05/14/23 @ 07:22 by Jordon Henley MD) Homeless (Acute) Alcoholic hepatitis with ascites (Acute) Discharge planning issues (Acute) DVT prophylaxis (Acute) Hyponatremia (Acute) Alcohol withdrawal (Acute) Acute kidney injury (Acute) Alcoholic cirrhosis of liver with ascites (Chronic) Chronic liver failure without hepatic coma (Chronic) Insomnia, psychophysiological (Chronic) GERD (gastroesophageal reflux disease) (Chronic) Generalized anxiety disorder (Chronic) Erectile dysfunction (Chronic) Chronic cough (Acute) Homeless single person (Acute) End stage liver disease (Chronic) Ascites due to alcoholic cirrhosis (Chronic) ETOH abuse (Chronic) Cirrhosis (Acute) Advanced care planning/counseling discussion (Acute) Hypokalemia (Acute) Medical History (Updated 05/14/23 @ 07:22 by Jordon Henley MD) Urinary retention Major depression Medication monitoring encounter Palliative care encounter Anxiety and depression Itching Chronic GERD HTN (hypertension) Surgical History (Updated 05/10/23 @ 13:34 by Tana Gillespie) S/P abdominal paracentesis (~04/2023) paracentesis History of esophagogastroduodenoscopy (EGD) Family History Father Cirrhosis Mother No problems noted. Other GERD (gastroesophageal reflux disease) Social History Smoking/Tobacco Use Status: Current every day Tobacco Type: cigarettes Quit status: has quit before Second Hand Exposure: Yes Smoking risk assessment performed?: Yes Alcohol Intake: current Alcohol Intake frequency: 3 or more drinks per day Alcohol type: hard liquor Drug use: Never Substance use type: does not use Caregiver/Support person: No Household members: none Housing: other Pets and animals: No Sexually active: No How often do you talk on the phone with friends or family?: twice per week How often do you get together with friends or relatives?: once per week How often do you attend adventist or hoahaoism services?: decline to answer Do you belong to any clubs or organized social groups?: no Panel score (0-1 are the most socially isolated patients): 1 What type of physical activity do you participate in: none Pat/Sabianist: None Seatbelt use: always Helmet use: Yes Drive intox or ride w/intox vending route driver: No Do you feel safe at home: Yes Additional Social history: lives alone, camping RV Exam Narrative Exam Narrative: Go is still below his baseline today: He is somewhat disheveled and lying in bed. His answers are much slower than usual. More tangential than usual. I do not observe him walking. Results Last Vital Signs Temp 35.8 C L 05/14/23 11:29 Pulse 71 05/14/23 11:29 Resp 18 05/14/23 11:29 BP 115/74 05/14/23 11:29 Pulse Ox 96 05/14/23 11:29 Labs 05/14/23 07:45 05/14/23 07:45 Labs: Laboratory Results - last 24 hr 05/14/23 05/14/23 07:45 07:45 WBC 9.52 RBC 4.24 L Hgb 13.2 L Hct 39.0 L MCV 92 MCH 31.1 MCHC 33.8 RDW 17.9 H Plt Count 103 L MPV 9.9 Immature Gran % 0.2 Neutrophils % 77.9 Lymphocytes % 11.3 Monocytes % 9.8 Eosinophils % 0.5 Basophils % 0.3 Nucleated RBC % 0.0 Absolute Neutrophils 7.41 H Absolute Lymphocytes 1.08 L Absolute Monocytes 0.93 H Absolute Eosinophils 0.05 Absolute Basophils 0.03 PT 17.1 H INR 1.8 H Sodium 136 Potassium 3.1 L Chloride 103 Carbon Dioxide 20.0 L Anion Gap 13.0 H BUN 27 H Creatinine 1.9 H Est GFR (CKD-EPI 2020) 41.66 Glucose 121 H Calcium 8.8 Magnesium 1.8 Cancelled Total Bilirubin 2.0 H Conjugated Bilirubin 1.2 H AST 63 H ALT 32 Alkaline Phosphatase 156 H Ammonia 57 H Total Protein 7.0 Albumin 2.5 L
--- NOTE | 2023-05-14 15:50 | CMPROGNOTE_ITS ---
Date of service: 05/14/23 Time of Service: 15:50 Care Management Progress Note Progress Note Text Progress Note Text: S/O: Go is lying in bed when CM comes to meet with him. He reports feeling depressed and hopeless and tells CM he would be okay with not waking up in the morning. He, however, denies any intent or plan to harm himself. When questioned further, he states Majo, the recovery advocate, has called everywhere and none of the rehabs will accept him because of his insurance. He has been reflecting on his life and wondering how he ended up where he's had. He's not sure what to do next other than to get in his jeep and just drive. He is aware that once he is medically cleared, he will be discharged back to the community. A: Go is a 52 year old male admitted to [facility] on 05/10/23 with alcohol withdrawal and alcoholic hepatitis. P: Plan remains for Go to be discharged to the community when medically cleared by medical provider. He will be driven home by his friend via private vehicle. He will follow up with his PCP and discharge plan of care as instructed. CM provides him with an application and program information for the [facility], along with contact information for the [facility] CM will continue to follow.
[2023-05-14 16:07] VITALS: BP 99/56; PULSE 80; RESP 18; TEMP 35.3; O2SAT 94
[2023-05-14] MEDS: Normal Saline Flush 10 ML SYR IVP (19:34)
[2023-05-14 23:31] VITALS: BP 128/86; PULSE 82; RESP 16; TEMP 36.2; O2SAT 97
[2023-05-15 03:11] VITALS: BP 113/79; PULSE 78; RESP 98; TEMP 35.9
[2023-05-15 07:27] LABS: Abs Immature Grans 0.05 10^3/uL (0.0-0.06); Absolute Basophil Count 0.03 10^3/uL (0.0-0.2); Absolute Eosinophil Count 0.12 10^3/uL (0.0-0.7); Absolute Lymphocyte Count 1.06 10^3/uL (1.2-3.4); Absolute Monocyte Count 0.87 10^3/uL (0.1-0.8); Basophils % 0.3; Eosinophils % 1.3; HCT 36.5 % (40.0-50.0); HGB 12.3 g/dL (13.5-17.5); Immature Grans % 0.5; Lymphocytes % 11.6; MCH 30.8 pg (27.0-33.0); MCHC 33.7 % (32.0-36.0); MCV 92 fL (80-95); MPV 10.3 fL (8.0-11.0); Monocytes % 9.5; Neutrophils % 76.8; RBC 3.99 10^6/uL (4.36-5.78); RDW 17.5 % (11.8-14.1); RDW-SD 59.3 fL; WBC 9.13 10^3/uL (4.4-10.8)
[2023-05-15 07:34] LABS: INR 1.7 (0.9-1.1); Prothrombin Time 16.5 sec (9.1-11.1)
[2023-05-15 07:38] LABS: Magnesium 1.6 mg/dL (1.8-2.4)
[2023-05-15 07:43] LABS: ALT 31 U/L (16-63); AST 55 U/L (15-37); Albumin 2.4 g/dL (3.4-5.0); Alkaline Phosphatase 144 U/L (46-116); Anion Gap 9.3 mmol/L (3-11); BUN 30 mg/dL (7-18); Bilirubin, Direct 1.1 mg/dL (0.0-0.2); CO2 21.7 mmol/L (21.0-32.0); Calcium 8.5 mg/dL (8.5-10.1); Chloride 103 mmol/L (98-107); Estimated GFR 39.17 (mL/min/1.73m2); Glucose 124 mg/dL (74-106); Sodium 134 mmol/L (136-145); Total Protein 6.5 g/dL (6.4-8.2)
[2023-05-15 07:45] LABS: Platelet Count 93 10^3/uL (130-400)
[2023-05-15 07:46] LABS: Potassium 2.8 mmol/L (3.5-5.1)
[2023-05-15 08:11] VITALS: BP 116/73; PULSE 75; RESP 18; TEMP 35.8; O2SAT 97
[2023-05-15] MEDS: Lactulose 20 GM/30 ML CUP 10 GM PO ×3 (08:47→19:50)
[2023-05-15] MEDS: Midodrine 2.5 MG TAB 10 MG PO ×3 (08:48→19:50)
[2023-05-15] MEDS: Rifaximin 550 MG TAB PO ×2 (08:48→19:50)
[2023-05-15] MEDS: Magnesium Gluconate 500 MG TAB PO ×2 (08:49→19:50)
[2023-05-15] MEDS: Escitalopram 20 MG TAB PO (08:49)
[2023-05-15] MEDS: Bumetanide 1 MG TAB PO (08:49)
[2023-05-15] MEDS: Thiamine 100 MG TAB PO (08:49)
[2023-05-15] MEDS: Spironolactone 25 MG TAB PO (08:49)
[2023-05-15] MEDS: Omeprazole 20 MG CAPCR 40 MG PO (08:49)
[2023-05-15] MEDS: Multivitamin TAB 1 TAB PO (08:49)
[2023-05-15] MEDS: hydrOXYzine PAMOATE 25 MG CAP 50 MG PO ×2 (08:51→19:50)
[2023-05-15] MEDS: prednisoLONE SOD PHOS. Soln. 3 MG/ML 40 MG PO (08:54)
[2023-05-15] MEDS: Folic Acid 1 MG TAB 5 MG PO (09:00)
--- NOTE | 2023-05-15 09:52 | PDOC.CMPRO ---
Date of service: 05/15/23 Time of Service: 09:52 Care Management Progress Note Progress Note Text Progress Note Text: S/O: Go was sleeping when CM attempted to meet with him. The assistant track coach met with him earlier today; she has been calling different facilities with Go to try to get him into a rehab program upon discharge. Go is also exploring sober housing in the area; he has information on this in his room. He is motivated to continue his sobriety, and is happy to have the resources to support him. Per MD, his electrolytes required repleting today, therefore he is not medically ready for discharge. CM will continue to follow. A: Go is a 52 year old male admitted to [facility] on 05/10/23 with alcohol withdrawal and alcoholic hepatitis. P: Plan remains for Go to be discharged to the community when medically cleared by medical provider. He will be driven home by his friend via private vehicle. He will follow up with his PCP and discharge plan of care as instructed. CM provides him with an application and program information for the [facility], along with contact information for the [facility] CM will continue to follow.
[2023-05-15] MEDS: Normal Saline Flush 10 ML SYR IVP (10:59)
[2023-05-15] MEDS: MAGNESIUM SULFATE 2 GM/50 ML BAG IVPB (11:02)
[2023-05-15] MEDS: Potassium Chloride 10 MEQ CAPCR 40 MEQ PO (11:43)
[2023-05-15] MEDS: Potassium Chloride 10 MEQ CAPCR 20 MEQ PO ×3 (14:44→19:50)
--- NOTE | 2023-05-15 14:58 | PTTR_ITS ---
Date of service: 05/15/23 Time of Service: 14:39 PT Notes Visit Reasons: [place] withdrawl, alcohilic hepatitis Inpatient Physical Therapy Treatment Note [facility] Date: 05/15/23 PRECAUTIONS: Fall, standard, activity as tolerated. SUBJECTIVE: Patient very deeply asleep, reports he is having trouble waking up. Apologizes several times. OBJECTIVE: Patient asleep, sidelying. Wakes easily. Agreeable to therapy. FLORES rodgers arrives shortly after start of treatment session to administer medications. ? PAIN: none reported VITALS: monitored by nursing staff? ? ? BED MOBILITY/TRANSFERS? Rolling L/R: independent Supine-sit: independent ? Sit-supine: independent ? Sit-stand: independent ? Stand-sit: independent ? Bed-Chair: independent ? Chair-bed: independent ? Therapeutic Exercises ([id number]): Direct one-on-one instruction in therapeutic exercises to develop strength, endurance, range of motion and flexibility. ? Exercises ? Stairs with single railing x21. Patient becomes slightly short of breath, recovers quickly during level surface ambulation Ambulation ? Assistive Device: none ? Weight bearing: full Assist: SBA ? Distance:? 600 feet ? Deviation: Patient walks in a straight line, at a comfortable pace. Adequate foot clearance, appropriate step length. Good posture. No LOB, no SOB. Lacking arm swing, however this may be due to patient holding his robe closed in front with both hands. ? Provided skilled instruction in proper exercise performance Provided skilled manual cues to facilitate proper muscle recruitment and/or form. ASSESSMENT:? Patient tolerates therapy well, no c/o pain, dyspnea. Returns to bed at end of treatment session. Call torres within easy reach. PLAN: Continue global strengthening per plan of care until patient is medically cleared for discharge. Patient anticipates this will be tomorrow. TREATMENT CODE/TIME: 18 minutes beginning at 14:39
--- NOTE | 2023-05-15 16:12 | PGE_ITS ---
Date of Service Date of service: 05/15/23 Time of Service: 16:12 Assessment and Plan Assessment and plan (1) Alcohol withdrawal: Status: Acute Assessment and plan: much improved. s/p treatment w/ phenobarbital protocol. he is no longer scoring on CIWA (0 to 2). No longer has required phenobarbital. I think he can be discharged tomorrow provided his electrolytes have been corrected. Go needs to follow up w/ hepatology back in [place]. Qualifiers: Complication of substance-induced condition: with perceptual disturbance Qualified Code(s): F10.932 - Alcohol use, unspecified with withdrawal with perceptual disturbance (2) Alcoholic hepatitis with ascites: Status: Acute Assessment and plan: His Maddrey score was high enough (32) to require prednisolone which he will need to take for 3 to 4 months then taper offf over a month. He should follow up w/ hepatology once he gets back to [place] (3) Alcoholic cirrhosis of liver with ascites: Status: Chronic Assessment and plan: s/p paracentesis of 6 liter on Saturday. patient duretics have been resumed. Now on spironlactone 25 mg daily and bumex 1 mg daily., also on rifaximin and lactulose for hepatic encephalpathy. No longer encephalopathic. I will increase his spironolactone dose to 50 mg daily but keep his bumex at 1 mg. Hopefully the increase of spironolactone will help prevent further hypokalemia and add in control of his ascites. (4) Chronic liver failure without hepatic coma: Status: Chronic Assessment and plan: as above (5) Acute kidney injury: Status: Acute Assessment and plan: stable, BUN 30, CREATININE 2.0 (6) Hypomagnesemia: Status: Resolved Assessment and plan: replete and monitor (7) Hyponatremia: Status: Acute Assessment and plan: sodium is improving, now at 134 , monitor daily BMP while diuresing (8) DVT prophylaxis: Status: Acute Assessment and plan: SCD, avoid chemoprophylaxis d/t his liver disease/coagulopathy (9) Discharge planning issues: Status: Acute Assessment and plan: dc tomorrow if electrolytes have been corrected. Patient can follow up locally w/ assigned PCP or he can return to [place] for follow up. Subjective Subjective Interval history since last seen: Overall Go says he is feeling markedly better. No hallucinations, no tremors nor sweats. He is discouraged that something more concrete has not been able to be set up for his housing situation. He says that he prefers to return to [place], [place] where he has family and friends and can get more social support, better possibility of being able to check into a rehab facility. Dr. Latham was here visiting w/ the patient when I arrived. Per Dr. Latham, he feels that Bettina does not have enough recurrence of his ascites yet to justify another paracentesis. He already took off 6 liters yesterday Exam Narrative Exam Narrative: Go is alert, oriented to person/place/ circumstances, he seems very calm and future oriented Sclera w/ slight icteric appearance, skin slight jaundice Lungs: clear Heart: RRR Abdomen: slightly distended, rounded but remains soft and nontender; fluid wave is present, normal bowel sounds Legs/feet: no edema Objective Last Vital Signs Temp 35.8 C L 05/15/23 08:11 Pulse 75 05/15/23 08:11 Resp 18 05/15/23 08:11 BP 116/73 05/15/23 08:11 Pulse Ox 97 05/15/23 08:11 Laboratory Results - last 24 hr 05/15/23 07:02 WBC 9.13 RBC 3.99 L Hgb 12.3 L Hct 36.5 L MCV 92 MCH 30.8 MCHC 33.7 RDW 17.5 H Plt Count 93 L MPV 10.3 Immature Gran % 0.5 Neutrophils % 76.8 Lymphocytes % 11.6 Monocytes % 9.5 Eosinophils % 1.3 Basophils % 0.3 Nucleated RBC % 0.0 Absolute Neutrophils 7.00 H Absolute Lymphocytes 1.06 L Absolute Monocytes 0.87 H Absolute Eosinophils 0.12 Absolute Basophils 0.03 PT 16.5 H INR 1.7 H Sodium 134 L Potassium 2.8 L* Chloride 103 Carbon Dioxide 21.7 Anion Gap 9.3 BUN 30 H Creatinine 2.0 H Est GFR (CKD-EPI 2020) 39.17 Glucose 124 H Calcium 8.5 Magnesium 1.6 L Total Bilirubin 2.0 H Conjugated Bilirubin 1.1 H AST 55 H ALT 31 Alkaline Phosphatase 144 H Total Protein 6.5 Albumin 2.4 L Reviewed Pertinent PMH: Yes Objective Narrative Objective Narrative: Labs were reviewed. Low K 2.8, on oral replacement, now up to 3.4 this afternoon, Mg 1.6, oral and iv replacement. BUN and creatinine stable at 30 and 2.0, transaminases and bilirubin are elevated but slowly improving PAWSS Have you Been Recently Intoxicated or Drunk Within the Last 30 days?: Yes Have you Ever Experienced Previous Episodes of Alcohol Withdrawal?: Yes Have you ever Experienced Withdrawal Seizures?: No Have you ever Experienced Delirium Tremens(DT)s?: Yes Have you ever undergone Alcohol Rehabilitation Treatment (i.e, inpt ot outpatient treatment programs)?: Yes Have you ever Experienced Blackouts?: Yes Have you ever Combined Alcohol with other Downers within the last 90 days?: No Have you ever Combined Alcohol with any other Substance of Abuse during the last 90 days?: No Positive Blood Alcohol level on Presentation? [PCS.BAL]: Unable to Obtain Evidence of Increased Autonomic Activity (i.e. HR>120, tremor, sweating, agitation, nausea)?: Yes Result: 6 Time Spent with Patient Time Spent with Patient: 25-34 minutes Time was spent: preparing to see the patient(eg.review tests), ordering medications,tests, procedures, referring, communicating with other health health care liaison, indepentently interpreting results, counseling the patient and care coordination
[2023-05-15 16:19] LABS: Potassium 3.4 mmol/L (3.5-5.1)
--- NOTE | 2023-05-15 16:25 | PGE_ITS ---
Date of Service Date of service: 05/15/23 Time of Service: 16:25 Assessment and Plan Assessment and plan (1) Alcoholic hepatitis with ascites: Status: Acute Assessment and plan: Go declined another round of paracentesis today, which I think is fine. His pain seems controlled, and he does not have much in terms of dyspnea. Although certainly still has some ascites, but he is declining paracentesis at that time, which I think is reasonable. His pain has been pretty well controlled, and he does not have much in the way of dyspnea. I am more than happy to do another p aracentesis whenever his symptoms demand it. Subjective Subjective Interval history since last seen: Go has been feeling okay since his paracentesis on Saturday. He has a little bit of pulling at the skin, but I suspect is secondary to the stitch. It feels better today. He has had no drainage from the site. Exam GI Other: His abdomen is soft, but he still has some ascites. The drainage site looks fine. Objective Last Vital Signs Temp 96.4 F L 05/15/23 08:11 Pulse 75 05/15/23 08:11 Resp 18 05/15/23 08:11 BP 116/73 05/15/23 08:11 Pulse Ox 97 05/15/23 08:11 Laboratory Results - last 24 hr 05/15/23 05/15/23 07:02 16:06 WBC 9.13 RBC 3.99 L Hgb 12.3 L Hct 36.5 L MCV 92 MCH 30.8 MCHC 33.7 RDW 17.5 H Plt Count 93 L MPV 10.3 Immature Gran % 0.5 Neutrophils % 76.8 Lymphocytes % 11.6 Monocytes % 9.5 Eosinophils % 1.3 Basophils % 0.3 Nucleated RBC % 0.0 Absolute Neutrophils 7.00 H Absolute Lymphocytes 1.06 L Absolute Monocytes 0.87 H Absolute Eosinophils 0.12 Absolute Basophils 0.03 PT 16.5 H INR 1.7 H Sodium 134 L Potassium 2.8 L* 3.4 L Chloride 103 Carbon Dioxide 21.7 Anion Gap 9.3 BUN 30 H Creatinine 2.0 H Est GFR (CKD-EPI 2020) 39.17 Glucose 124 H Calcium 8.5 Magnesium 1.6 L Total Bilirubin 2.0 H Conjugated Bilirubin 1.1 H AST 55 H ALT 31 Alkaline Phosphatase 144 H Total Protein 6.5 Albumin 2.4 L PAWSS Have you Been Recently Intoxicated or Drunk Within the Last 30 days?: Yes Have you Ever Experienced Previous Episodes of Alcohol Withdrawal?: Yes Have you ever Experienced Withdrawal Seizures?: No Have you ever Experienced Delirium Tremens(DT)s?: Yes Have you ever undergone Alcohol Rehabilitation Treatment (i.e, inpt ot outpatient treatment programs)?: Yes Have you ever Experienced Blackouts?: Yes Have you ever Combined Alcohol with other Downers within the last 90 days?: No Have you ever Combined Alcohol with any other Substance of Abuse during the last 90 days?: No Positive Blood Alcohol level on Presentation? [PCS.BAL]: Unable to Obtain Evidence of Increased Autonomic Activity (i.e. HR>120, tremor, sweating, agitation, nausea)?: Yes Result: 6 Time Spent with Patient Time Spent with Patient: 25-34 minutes Time was spent: counseling the patient
--- NOTE | 2023-05-15 17:00 | INDS_ITS ---
PT Notes Visit Reasons: Alchola withdrawl, alcohilic hepatitis Physical Therapy Inpatient Discharge Summary Date:?05/16/23 Dates of service: 05/12/2023 through 05/15/2023 This is a clinical summary of care provided for the duration of dates listed above. No charge was made in the completion of this documentation. Referring Doctor: Leela Collier MD MD Orders: Limited ability, non-urgent Precautions:? Standard Patient Profile/Admitting Diagnosis:??? 52 y o male admitted with complications of ETOH withdrawal, liver hepatitis and liver cirrhosis related to alcohol abuse. Cleared as of today for discharge with no additional services needed PMHX: All Active Problems (Updated 05/10/23 @ 09:48 by Leela Collier MD) Alcoholic hepatitis with ascites (Acute) Discharge planning issues (Acute) DVT prophylaxis (Acute) Hyponatremia (Acute) Hypomagnesemia (Acute) Alcohol withdrawal (Acute) Acute kidney injury (Acute) Alcoholic cirrhosis of liver with ascites (Chronic) Chronic liver failure without hepatic coma (Chronic) Insomnia, psychophysiological (Chronic) GERD (gastroesophageal reflux disease) (Chronic) Generalized anxiety disorder (Chronic) Erectile dysfunction (Chronic) Chronic cough (Acute) Homeless single person (Acute) End stage liver disease (Chronic) Ascites due to alcoholic cirrhosis (Chronic) ETOH abuse (Chronic) Cirrhosis (Acute) Advanced care planning/counseling discussion (Acute) Hypokalemia (Acute) Medical History Major depression Medication monitoring encounter Palliative care encounter Anxiety and depression Itching Chronic GERD HTN (hypertension) Surgical History S/P abdominal paracentesis (~04/2023) 9th paracentesisHistory of esophagogastroduodenoscopy (EGD) Social History/Home Situation: Has been living in a rented camper independently over the summer in [facility], now homeless as the camper does not have heat or running water. His mother lives out of the area, [place], [place] - this appears to be his only family member. He wishes to go to rehab. Equipment Owned/DME:None Subjective: NT. See most recent [facility] notes. Objective: General Observation: NT. See most recent [facility] notes. Mental Status: NT. See most recent [facility] notes. Pain: NT. See most recent [facility] notes. Vital Signs: NT. See most recent [facility] notes. ROM: Grossly WFL all extremities Strength: Grossly 4/5 throughout UE and LE's BED MOBILITY/TRANSFERS? Rolling L/R: independent Supine-sit: independent ? Sit-supine: independent ? Sit-stand: independent ? Stand-sit: independent ? Bed-Chair: independent ? Chair-bed: independent ? GAIT:? Assistive Device: none ? Weight bearing: full Assist: SBA ? Distance:? 600 feet ? Deviation: Patient walks in a straight line, at a comfortable pace. Adequate foot clearance, appropriate step length. Good posture. No LOB, no SOB. Lacking arm swing, however this may be due to patient holding his robe closed in front with both hands. ? Balance: Static Sitting: Good Dynamic Sitting: Good Static Standing: Fair Dynamic Standing: Fair Assessment: Patient medically cleared for discharge to the hospital with ability to perform level surface ambulation of 600 feet without an assistive device. Independent with all bed mobility and transfer task performance as of today. Goals: Goals X1 week 1. Supine-Sit independent yes MET 2. Sit-Supine independent MET 3. Sit-Stand independent MET 4. Stand-Sit independent MET 5. Bed-Chair independent MET 6. Chair-Bed independent MET 7. Steady gait on level surface of household distance MET 8. Independent stair negotiation of 4 steps NOT MET 9. Independent with home exercise program NOT MET 10. Good dynamic balance MET DISCHARGE RECOMMENDATIONS: Patient to work with case management, he is homeless and feel alcohol rehabilitation is his goal. He will not need a physical rehabilitation placement, and will be ok to be discharged independently to any living situation. ? TREATMENT CODE(s): NC Treatment TIME: NE Thank you for the opportunity to participate in the care of this patient. Chanel Lehman PT, DPT, CLT [facility] [place], [place]
[2023-05-15 19:47] VITALS: BP 125/87; PULSE 76; RESP 18; TEMP 35.7; O2SAT 96
[2023-05-15 23:58] VITALS: BP 133/86; PULSE 73; RESP 16; TEMP 36.3
[2023-05-16 07:04] LABS: Abs Immature Grans 0.05 10^3/uL (0.0-0.06); Absolute Basophil Count 0.02 10^3/uL (0.0-0.2); Absolute Eosinophil Count 0.29 10^3/uL (0.0-0.7); Absolute Lymphocyte Count 1.13 10^3/uL (1.2-3.4); Absolute Monocyte Count 0.98 10^3/uL (0.1-0.8); Absolute Neutrophil Count 7.67 10^3/uL (1.2-6.7); Basophils % 0.2; Eosinophils % 2.9; HCT 38.5 % (40.0-50.0); HGB 12.9 g/dL (13.5-17.5); Immature Grans % 0.5; Lymphocytes % 11.1; MCH 30.6 pg (27.0-33.0); MCHC 33.5 % (32.0-36.0); MCV 91 fL (80-95); MPV 9.6 fL (8.0-11.0); Monocytes % 9.7; Neutrophils % 75.6; Platelet Count 112 10^3/uL (130-400); RBC 4.22 10^6/uL (4.36-5.78); RDW 17.5 % (11.8-14.1); RDW-SD 58.4 fL; WBC 10.14 10^3/uL (4.4-10.8)
[2023-05-16 07:13] LABS: INR 1.6 (0.9-1.1); Prothrombin Time 15.8 sec (9.1-11.1)
[2023-05-16 07:20] LABS: ALT 32 U/L (16-63); AST 54 U/L (15-37); Albumin 2.5 g/dL (3.4-5.0); Alkaline Phosphatase 144 U/L (46-116); Anion Gap 11.1 mmol/L (3-11); BUN 32 mg/dL (7-18); Bilirubin, Direct 1.1 mg/dL (0.0-0.2); Bilirubin, Total 1.9 mg/dL (0.2-1.0); CO2 18.9 mmol/L (21.0-32.0); CREATININE 1.9 mg/dL (0.70-1.30); Calcium 8.6 mg/dL (8.5-10.1); Chloride 103 mmol/L (98-107); Estimated GFR 41.66 (mL/min/1.73m2); Glucose 121 mg/dL (74-106); Magnesium 1.9 mg/dL (1.8-2.4); Potassium 3.3 mmol/L (3.5-5.1); Sodium 133 mmol/L (136-145); Total Protein 6.8 g/dL (6.4-8.2)
[2023-05-16 07:46] VITALS: BP 114/75; PULSE 77; RESP 16; TEMP 35.5; O2SAT 97
[2023-05-16] MEDS: Midodrine 2.5 MG TAB 10 MG PO ×2 (07:54→13:23)
[2023-05-16] MEDS: hydrOXYzine PAMOATE 25 MG CAP 50 MG PO (07:55)
[2023-05-16] MEDS: Lactulose 20 GM/30 ML CUP 10 GM PO ×2 (07:55→13:23)
[2023-05-16] MEDS: Potassium Chloride 10 MEQ CAPCR 20 MEQ PO ×2 (07:56→07:57)
[2023-05-16] MEDS: Magnesium Gluconate 500 MG TAB PO (07:56)
[2023-05-16] MEDS: Folic Acid 1 MG TAB 5 MG PO (07:56)
[2023-05-16] MEDS: Spironolactone 25 MG TAB 50 MG PO (07:57)
[2023-05-16] MEDS: Thiamine 100 MG TAB PO (07:57)
[2023-05-16] MEDS: Rifaximin 550 MG TAB PO (07:57)
[2023-05-16] MEDS: Omeprazole 20 MG CAPCR 40 MG PO (07:57)
[2023-05-16] MEDS: Bumetanide 1 MG TAB PO (07:58)
[2023-05-16] MEDS: Multivitamin TAB 1 TAB PO (07:58)
[2023-05-16] MEDS: Escitalopram 20 MG TAB PO (07:58)
[2023-05-16] MEDS: prednisoLONE SOD PHOS. Soln. 3 MG/ML 40 MG PO (08:03)
--- NOTE | 2023-05-16 08:51 | PDOC.CMDIS ---
Date of service: 05/16/23 Time of Service: 08:51 LACE Index Scoring Tool Questions: Length of Stay (in days): 4 - 6 Was the patient admitted via the E.D.?: Yes Comorbidities: Liver or Renal Disease E.D. Visits: 1 Answers: Total Score: 13 Risk of Readmission: High Risk Care Management Discharge Plan Reason for Hospitalization: Alcohol withdrawal; alcoholic hepatitis Discharge Plan: Go will discharge to the community today. He is working with the reading recovery teacher to get into alcohol rehab or sober living in the area. He will drive himself, as his car is in the parking lot. He will follow up with his PCP and discharge plan of care. Patient/Family Education Needs: Review discharge instructions and limitations, discussion of self care needs including ask me three.
[2023-05-16 12:56] VITALS: BP 115/76
--- NOTE | 2023-05-16 13:23 | W.PM.DS.N ---
Date of service: 05/16/23 Time of Service: 13:23 DS: Diagnosis Discharge Diagnosis (1) Alcohol withdrawal: Status: Acute (2) Alcoholic hepatitis with ascites: Status: Acute (3) Alcoholic cirrhosis of liver with ascites: Status: Chronic (4) Chronic liver failure without hepatic coma: Status: Chronic (5) Acute kidney injury: Status: Acute (6) Hypomagnesemia: Status: Resolved (7) Hyponatremia: Status: Acute Discharge Plan Disposition Patient Disposition: Home Condition: Improving Discharge Details Reason For Visit: Alchola withdrawl, alcohilic hepatitis Admit Date/Time: 05/10/23 07:37 Admit Provider: Leela Collier Attending Provider: Leela Collier Primary Care Provider: Kushal Salgado Hospital Course Hospital Course: This is a 52-year-old male patient with a past medical history significant for alcohol abuse cirrhosis end-stage liver disease who presented to the emergency department with signs of acute alcohol withdrawal after stopping alcohol consumption over the past several days. He states that he has been drinking consistently for 3 months. He was started on the phenobarbital protocol and admitted under hospitalist services for further management. Notable labs included hyponatremia hypomagnesemia acute kidney injury and coagulopathy. There was no evidence of active bleeding. Fluids were limited secondary to his ascites. He was also given vitamin K for INR of 2.0. His discriminant function score was noted at 38.4 so he was started on prednisone. He will be discharged on prednisone and will require a slow taper. He continued to receive phenobarbital which was controlling his withdrawal symptoms. There were no seizures or active issues. He continued to remain hemodynamically stable. Electrolytes improving, tolerating a diet. He was evaluated by general surgery who is going to perform a paracentesis but patient did state that he felt okay and there was no dyspnea so decided to hold off on that which was reasonable at this time so that was placed on hold. He was seen by palliative care, and from their notes Housing: -He qualifies for limited number of days of emergency housing to be used over the winter. -He will continue to work with his current resources on finding housing. -We discussed today that returning to [place] may be his best option for the winter. He is dubious about this. Alcoholism: -His plan is to enter inpatient rehab as soon as possible after discharge from [facility]. -Go does not feel it is realistic for him to attend AA at this time, too much going on. -He plans to continue taking his acamprosate. -He will continue to meet with his mental health counselor via telehealth visits. Palliative Care Team plans to continue to meet with Go if he remains in the area. He is stable and ready for discharge. He does have his own vehicle here and did drive himself from the hospital. Discharge is discussed with Dr. Montemayor Home Meds and New Rx's Prescriptions: New spironolactone 25 mg Tablet 50 mg PO DAILY Qty: 30 0RF prednisone 20 mg tablet 40 mg PO DAILY Qty: 60 0RF Continued lactulose [Constulose] 10 gram/15 mL solution 15 ml PO BID Patient Comments: If had 3 to 4 BMs daily, okay to hold second dose per day. escitalopram oxalate 20 mg tablet 20 mg PO DAILY Qty: 90 3RF prochlorperazine maleate 5 mg tablet See Rx Instructions .ROUTE .COMPLEX Qty: 30 0RF Dose Instruction: TAKE 1 TABLET BY MOUTH THREE TIMES DAILY NEEDED Rx Instructions: TAKE 1 TABLET BY MOUTH THREE TIMES DAILY NEEDED midodrine 5 mg tablet 10 mg PO TID hydroxyzine pamoate 50 mg capsule 50 mg PO BID omeprazole 40 mg capsule,delayed release(DR/EC) 40 mg PO DAILY amiloride 5 mg tablet 10 mg PO DAILY acamprosate 333 mg tablet,delayed release (DR/EC) 666 mg PO TID Hold Instructions: Holding Xifaxan 550 mg tablet 550 mg PO BID magnesium gluconate 27.5 mg magne- sium (500 mg) tablet 27.5 mg PO DAILY Qty: 30 0RF Changed bumetanide 0.5 mg Tablet 1 mg PO DAILY Qty: 0 0RF Discharge Instructions Instructions: Cirrhosis (DC), Acute Kidney Injury (DC), Abuse of Alcohol (DC), Ascites (DC) Additional Instructions: avoid alcohol. take medications as prescribed follow up with your hepatology specialist back in [place]. Stand Alone Forms: Nursing Discharge Form Referrals: Kushal Salgado NP [Primary Care Provider] - 05/23/23 9:40 am Activity:: Activity as Tolerated Equipment/Supplies:: No Equipment Needed Diet:: As Tolerated Discharge Orders Discharge Orders: Discharge Order (Routine); Ordered 05/16/23 Ordered By: Sinai Escamilla Discharge Data Discharge Date/Time-TO BE ENTERED AT DEPARTURE: 05/16/23 15:31 Discharge Comment: dc home DS: Summary Time Spent with Patient providing and/or coordinating discharge services: Greater than 30 minutes Status at Discharge Functional status at discharge: independent ambulation Overall status at discharge: patient is not back to baseline Mental Status: mental status grossly normal Speech and Movement: speech and movement normal Mood: congruent mood Affect: normal affect Exam Const General: cooperative and no acute distress Nutritional Appearance: average body habitus Orientation: alert, awake and oriented x3 Chest Chest: normal inspection of the chest Resp Effort & Inspection: normal respiratory effort Auscultation: diminished lung sounds Cardio Rate: regular rate Rhythm: regular rhythm GI Inspection: distended Palpation: not firm Skin General skin exam: no rashes or lesions noted Neuro General: patient alert, patient awake and patient oriented x3 Extrem General: normal to inspection and full ROM Psych Appearance: grossly normal Mental Status: mental status grossly normal Speech and Movement: speech and movement normal Mood: congruent mood Affect: normal affect Attitude: cooperative Thought Process: normal Thought Content: normal DS: Data Vitals/I&O Vitals and I&O: Vital Signs Temperature 35.5 C L 05/16/23 07:46 Temperature Source Tympanic 05/16/23 07:46 Pulse 77 05/16/23 07:46 Pulse Rhythm Regular 05/16/23 08:40 Pulse 67 05/12/23 11:00 Respiratory Rate 16 05/16/23 07:46 Respiratory Effort Normal, Non-Labored 05/16/23 08:40 Respiratory Depth Normal 05/16/23 08:40 Respiratory Pattern Normal 05/16/23 08:40 Blood Pressure 115/76 05/16/23 12:56 Blood Pressure Mean 96 05/13/23 18:16 Blood Pressure Position Supine 05/12/23 08:00 Pulse Oximetry 97 05/16/23 07:46 Oxygen Delivery Method Room Air 05/16/23 07:46 Oxygen Flow Rate 0 05/16/23 07:46 Pain Level 0 05/16/23 07:46 Comment came in when I was doing vat. 05/15/23 03:11 Intake & Output 05/15/23 05/16/23 05/16/23 23:59 11:59 23:59 Intake Total 290 / 290 420 / 420 Balance 290 / 290 420 / 420 Intake: IV 50 / 50 Oral 240 / 240 420 / 420 Other: Urine Color Yellow Urine Appearance Clear Comment unmeasured void Stool Size Moderate Stool Characteristics Soft Liquid Voiding Methods Toilet Data Completed and Pending Labs on day of discharge: Labs from last 24 hours 05/16/23 05/16/23 05/15/23 06:42 05:35 16:06 WBC 10.14 RBC 4.22 L Hgb 12.9 L Hct 38.5 L MCV 91 MCH 30.6 MCHC 33.5 RDW 17.5 H Plt Count 112 L MPV 9.6 Immature Gran % 0.5 Neutrophils % 75.6 Lymphocytes % 11.1 Monocytes % 9.7 Eosinophils % 2.9 Basophils % 0.2 Nucleated RBC % 0.0 Absolute Neutrophils 7.67 H Absolute Lymphocytes 1.13 L Absolute Monocytes 0.98 H Absolute Eosinophils 0.29 Absolute Basophils 0.02 PT 15.8 H INR 1.6 H Sodium 133 L Potassium 3.3 L 3.4 L Chloride 103 Carbon Dioxide 18.9 L Anion Gap 11.1 H BUN 32 H Creatinine 1.9 H Est GFR (CKD-EPI 2020) 41.66 Glucose 121 H Calcium 8.6 Magnesium 1.9 Cancelled Total Bilirubin 1.9 H Conjugated Bilirubin 1.1 H AST 54 H ALT 32 Alkaline Phosphatase 144 H Total Protein 6.8 Albumin 2.5 L PFSH All Active Problems (Updated 05/14/23 @ 22:48 by Earl Khalil MD) Homeless (Acute) Alcoholic hepatitis with ascites (Acute) Discharge planning issues (Acute) DVT prophylaxis (Acute) Hyponatremia (Acute) Alcohol withdrawal (Acute) Acute kidney injury (Acute) Alcoholic cirrhosis of liver with ascites (Chronic) Chronic liver failure without hepatic coma (Chronic) Insomnia, psychophysiological (Chronic) GERD (gastroesophageal reflux disease) (Chronic) Generalized anxiety disorder (Chronic) Erectile dysfunction (Chronic) Chronic cough (Acute) Homeless single person (Acute) End stage liver disease (Chronic) Ascites due to alcoholic cirrhosis (Chronic) ETOH abuse (Chronic) Cirrhosis (Acute) Advanced care planning/counseling discussion (Acute) Hypokalemia (Acute) Medical History (Updated 05/14/23 @ 22:48 by Earl Khalil MD) Urinary retention Major depression Medication monitoring encounter Palliative care encounter Anxiety and depression Itching Chronic GERD HTN (hypertension) Surgical History (Updated 10/20/23 @ 13:34 by Tana Jenkins S/P abdominal paracentesis (~04/2023) 09th paracentesis History of esophagogastroduodenoscopy (EGD) Family History Father Cirrhosis Mother No problems noted. Other GERD (gastroesophageal reflux disease) Social History Smoking/Tobacco Use Status: Current every day Tobacco Type: cigarettes Quit status: has quit before Second Hand Exposure: Yes Smoking risk assessment performed?: Yes Alcohol Intake: current Alcohol Intake frequency: 3 or more drinks per day Alcohol type: hard liquor Drug use: Never Substance use type: does not use Caregiver/Support person: No Household members: none Housing: other Pets and animals: No Sexually active: No How often do you talk on the phone with friends or family?: twice per week How often do you get together with friends or relatives?: once per week How often do you attend sabianism or bahai services?: decline to answer Do you belong to any clubs or organized social groups?: no Panel score (0-1 are the most socially isolated patients): 1 What type of physical activity do you participate in: none Apt/Church: None Seatbelt use: always Helmet use: Yes Drive intox or ride w/intox farm truck driver: No Do you feel safe at home: Yes Additional Social history: lives alone, camping RV Time Spent with Patient Time Spent with Patient: 45-69 minutes Time was spent: preparing to see the patient(eg.review tests), obtaining and/or reviewing separately otained hiistory, ordering medications,tests, procedures, referring, communicating with other health lpn care manager, indepentently interpreting results, counseling the patient and care coordination
[2023-05-16 15:04] VITALS: BP 118/76; PULSE 77; RESP 18; TEMP 35.9; O2SAT 97
== END 2023-05-16 15:31 | disposition home or self-care (01) | DRG 897 ==
LOC: ER 07:31 → ICU 10:21 → MS 05-13 18:11
PROVIDERS: Internal Medicine; Admitting Provider Internal Medicine; Emergency Provider Student in an Organized Health Care Education/Training Program; PCP Nurse Practitioner Family; Visit Provider Internal Medicine
DX: F10.132 Alcohol abuse with withdrawal with perceptual disturbance (principal); N17.9 Acute kidney failure, unspecified; E87.1 Hypo-osmolality and hyponatremia; Z59.00 Homelessness unspecified; K70.31 Alcoholic cirrhosis of liver with ascites; K76.82 Hepatic encephalopathy; K70.11 Alcoholic hepatitis with ascites; K72.10 Chronic hepatic failure without coma; E83.42 Hypomagnesemia; R33.9 Retention of urine, unspecified; Z79.899 Other long term (current) drug therapy; F51.04 Psychophysiologic insomnia; F41.1 Generalized anxiety disorder; G47.00 Insomnia, unspecified; R05.3 Chronic cough; F32.A Depression, unspecified; K21.9 Gastro-esophageal reflux disease without esophagitis; I10 Essential (primary) hypertension; F17.210 Nicotine dependence, cigarettes, uncomplicated
CPT/HCPCS: 49083; 00123; 36415; 76770; 80048; 80053; 80076; 82805; 83690; 87637; 96374; 96375; 97110; 97116; 97162; 99221; 99231; 99291; 71045; 80184; 80320; 80329; 81003; 81015; 82140; 82607; 82746; 83735; 84132; 84439; 84443; 85014; 85018; 85025; 85610; 85730; 87086; 93005; 93010; 94667; 94668; 99232; 99233; 99239; J2060; J2560; J3475

== ENCOUNTER → 2023-05-13 07:42 | Outpatient (BNVA) | payer MEDICARE, SELFPAY | PROVIDERS: PCP Nurse Practitioner Family; Referring Provider Nurse Practitioner Family; Visit Provider Urology ==